=== PATIENT | female | born 1935 | race Caucasian/White ===

== ENCOUNTER → 2018-06-14 | Outpatient (CLI) | payer MEDICARE ==
[~2018-06-14] MED LIST: ACET325 PO; ALBU90OI61 INH; AMIT50 PO; BUME2 PO; CALCA500CH PO; CHOL10002 PO; DOXY100 PO; DRON400T; DRON400T PO; DRON5 PO; ESCI5 PO; FAMO20 PO; GLIM4 PO; HYDCOR10 PO; LEVO-T150 MCG PO; LEVSOD150 PO; LEVSOD75 PO; META800 PO; METO25; METO25 PO; METO5A PO; MONT10T PO; OMEP20ER PO; ONDA4 PO; ONDA8 PO; OXYACE5T PO; OXYC15ER PO; OXYC1TAB11; OXYC30ER PO; PANT20 PO; PRED1; PRED1 PO; PRED20 PO; PRED5 PO; PROM25 PO; PROM25S PR; Percocet 10-321 EACH PO; RXPROM25 PO; RXPROM25S PR; TUMS300 MG PO; Tambocor100 MG; Tambocor100 MG PO; WARF4; WARF5 PO; WARF7.5 PO; Zofran8 MG PO
== END | disposition home or self-care (01) ==
LOC: LAB EV 16:09 → LAB SHORT 16:09
DX: L03.114 Cellulitis of left upper limb (principal)
CPT/HCPCS: 87070; 87077; 87147; 87186

== ENCOUNTER 2018-07-25 11:24 | Inpatient (IN) | payer MEDICARE ==
[~2018-07-25] VITALS: Ht 172.7 cm; Wt 115.0 kg
[~2018-07-25 11:24] MED LIST changes: -METO25; -OXYC1TAB11; +OXYC1TAB11 PO; -PRED1; -TUMS300 MG PO; +TUMS500 MG PO; -Tambocor100 MG
[2018-07-25 12:17] LABS: BASOPHILS ABSOLUTE AUTO 0.05 K/mm3 (0.00-0.23); BASOPHILS PERCENT AUTO 0 % (0-2); EOSINOPHILS ABSOLUTE AUTO 0.02 K/mm3 (0.00-0.68); EOSINOPHILS PERCENT AUTO 0 % (0-6); Hematocrit 33.9 % (33.0-51.0); Hemoglobin 10.4 g/dL (11.5-16.0); IMMATURE GRAN ABSOLUTE AUTO 0.04 K/mm3 (0.00-0.10); IMMATURE GRAN PERCENT AUTO 0 % (0-1); LYMPHOCYTES ABSOLUTE AUTO 1.69 K/mm3 (0.84-5.20); LYMPHOCYTES PERCENT AUTO 15 % (21-46); MONOCYTES ABSOLUTE AUTO 1.11 K/mm3 (0.16-1.47); MONOCYTES PERCENT AUTO 10 % (4-13); Mean Corpuscular HGB 30.1 pg (26.0-34.0); Mean Corpuscular HGB Conc 30.7 g/dL (31.5-36.5); Mean Corpuscular Volume 98 fL (80-100); Mean Platelet Volume 11.2 fL (9.1-12.4); NEUTROPHILS ABSOLUTE AUTO 8.56 K/mm3 (1.96-9.15); NEUTROPHILS PERCENT AUTO 75 % (41-73); Platelet Count 207 K/mm3 (150-400); RDW Standard Deviation 50.6 fL (35.1-46.3); Red Blood Cell Count 3.46 M/mm3 (3.80-5.20); White Blood Cell Count 11.47 K/mm3 (4.00-11.30)
[2018-07-25 12:34] LABS: International Normalized Ratio 3.19; Prothrombin Time Results 30.4 Sec (9.7-11.5)
[2018-07-25 12:45] LABS: Alanine Aminotransfer (ALT/SGP 13 U/L (12-78); Albumin, Blood 2.7 g/dL (3.4-5.0); Albumin/Globulin Ratio 0.7 (0.8-1.8); Alk Phos 62 U/L (50-136); Anion Gap 4 mmol/L (6-16); Aspartate Aminotrans (AST/SGOT 16 U/L (12-37); Bilirubin, Total 0.3 mg/dL (0.1-1.0); Blood Urea Nitrogen 14 mg/dL (8-24); Bun/Creatinine Ratio 17.3 (12.0-20.0); CO2, Blood 37 mmol/L (21-32); Calcium, Blood 8.3 mg/dL (8.5-10.1); Chloride, Blood 97 mmol/L (98-108); Creatinine, Blood 0.81 mg/dL (0.40-1.00); Globulin, Blood 3.8 g/dL (2.2-4.0); Glomerular Filtration Rate >60 (60-); Glucose, Blood 93 mg/dL (70-99); Potassium, Blood 3.8 mmol/L (3.5-5.5); Sodium, Blood 138 mmol/L (136-145); Total Protein, Blood 6.5 g/dL (6.4-8.2); Troponin I 0.101 ng/mL (0.000-0.040)
[2018-07-25 12:54] LABS: Base Excess Venous 12.3 mmol/L; Bicarbonate Venous 34.7 mmol/L (24.0-30.0); PCO2 Venous 48.7 mmHg (38-42); PO2 Venous 174 mmHg (38-42); pH Blood Venous 7.48 (7.34-7.37)
[2018-07-25] MEDS ORDERED: AZIT250 PO (13:26)
[2018-07-25] MEDS ORDERED: OXYC30ER PO ×2 (13:28→13:29)
[2018-07-25] MEDS ORDERED: Tessalon200 MG PO (13:28)
[2018-07-25] MEDS ORDERED: WARF5 PO (13:31)
[2018-07-25] MEDS ORDERED: LEVSOD150 PO (13:34)
[2018-07-25] MEDS ORDERED: Tambocor100 MG PO (14:28)
--- NOTE | 2018-07-25 19:25 | NUR ---
ADMIT NOTE- PT ADMITTED THROUGH THE ED. ON TELE NSR AT 81 PER METAL HARDENER MELCHOR. PT ALERT AND ORIENTED BUT FORGETFUL, TENDS TO REPEAT THE SAME QUESTIONS. PT HAS FAMILY AT THE BEDSIDE, PT HAS AN AUDIBLE HEART MURMUR. CALLED DR AND LEFT A MESSAGE, PT IS CURRENTLY NPO, BG ORDERS FOR AC, PASSED ON IN REPORT THAT PT SHOULD HAVE Q6 BG UNTIL CLARIFIED. NO CARDIOLOGY CONSULT AT THIS TIME, TROPONIN BUMPED AT 0.141. PASSED ALL ON IN BEDSIDE REPORT TO NIGHT RICARDO PINZON.
[2018-07-25 20:13] LABS: Source, Urine Voided
[2018-07-25 20:22] LABS: Bilirubin, Urine Neg (Neg); Blood, Urine 1+ (Neg); Glucose Qualitative, Urine Neg (Neg); Ketones, Urine Neg (Neg); Leukocyte Esterase, Urine 3+ (Neg); Nitrite, Urine Neg (Neg); Protein, Urine 2+ (Neg); Urobilinogen, Urine NORM (Normal)
[2018-07-25 20:29] LABS: Appearance, Urine Hazy (Clear); Color, Urine Yellow (P-Yellow)
[2018-07-25 20:30] LABS: Bacteria Few /hpf; Red Blood Cells, Urine 0-2 /hpf (0-2); Squamous Epithelial Cells Few /hpf (Few); White Blood Cells, Urine 50-100 /hpf (0-5)
--- NOTE | 2018-07-25 22:25 | NUR ---
RIGHT LEG PAIN PT IS HAVING SIGNIFICANT PAIN RLE. PT REPORTS FALLING ONTO HER R SIDE AT HOME. RELIEVED BY OXYCONTIN XR, HOWEVER STILL LIMITED ROM TO RLE.
--- NOTE | 2018-07-26 05:35 | NUR ---
SHIFT SUMMARY: PT C/O HEAVILY OF RLE PAIN, SPECIFICALLY TO THE R KNEE. LEG IS SWOLLEN AND PAINFUL TO TOUCH, BUT NOT BRUISING NOTED. PT REPORTS FALLING ONTO R KNEE, SHOULDER, AND SIDE OF HEAD. NO X RAY OF R LEG, HOWEVER THIS RN FEELS THAT IT NEEDS TO BE ADDRESSED PT CANNOT EVEN MOVE THE R LEG. WILL PASS OF TO DAYSHIFT RN TO PASS OFF TO ATTENDING PHYSICIAN. PT IS ON 4.5L VIA NC AND CONT PULSE OXIMETRY, LUNGS ARE COARSE. PT IS A&O X 4, NO CONFUSION. PT NPO. TELE IN PLACE; NSR @ 69. CBG Q6H PER NPO PROTOCOL, BLOOD SUGARS THROUGH THE NIGHT ARE WNL -- BLOOD SUGARS 101 & 121. URINALYSIS SENT. LR RUNNING @ 100 ML/HR. WILL CONT TO MONITOR AND PROVIDE CARE UNTIL PRESUMED BY ONCOMING RN.
[2018-07-26 05:57] LABS: Alanine Aminotransfer (ALT/SGP 14 U/L (12-78); Albumin, Blood 2.5 g/dL (3.4-5.0); Albumin/Globulin Ratio 0.6 (0.8-1.8); Alk Phos 61 U/L (50-136); Anion Gap 5 mmol/L (6-16); Aspartate Aminotrans (AST/SGOT 14 U/L (12-37); Bilirubin, Total 0.4 mg/dL (0.1-1.0); Blood Urea Nitrogen 10 mg/dL (8-24); Bun/Creatinine Ratio 16.2 (12.0-20.0); CO2, Blood 36 mmol/L (21-32); Calcium, Blood 8.3 mg/dL (8.5-10.1); Chloride, Blood 97 mmol/L (98-108); Creatinine, Blood 0.62 mg/dL (0.40-1.00); Globulin, Blood 3.9 g/dL (2.2-4.0); Glomerular Filtration Rate >60 (60-); Glucose, Blood 114 mg/dL (70-99); Potassium, Blood 4.1 mmol/L (3.5-5.5); Sodium, Blood 138 mmol/L (136-145); Total Protein, Blood 6.4 g/dL (6.4-8.2); Troponin I 0.051 ng/mL (0.000-0.040)
[2018-07-26 10:29] LABS: International Normalized Ratio 3.6
--- NOTE | 2018-07-26 12:42 | NUR ---
ECHOCARDIOGRAM COMPLETE
--- NOTE | 2018-07-26 17:11 | NUR ---
SPOKE TO DR TAPIA- PT SBP HAS BEEN IN THE 90'S ALL DAY. PT HAS NO SYMPTOMS OF LOW BLOOD PRESSURE, SHE IS A LITTLE MORE SLEEPY TODAY. DR IS AWARE METOPROLOL DOSE WAS HELD THIS MORNING FOR LOW SBP. PT RECIEVED A 500ML FLUID BOLUS TODAY WITH NO RESPONSE IN THE BP, DR AWARE. PT HAD AN ECHO DONE TODAY. PLAN IS TO CT AT THIS TIME.
--- NOTE | 2018-07-26 18:17 | NUR ---
SHIFT SUMMARY- PT HAS HAD CHANGES TO HER PAIN MEDCIATION REGIMEN. SPOKE TO DR ABOUT PT HOME PAIN MEDS. DR DOES NOT WANT TO RESUME THAT REGIMEN IT FLUCTUATES TOO MUCH. LONG ACTING PAIN MEDICATION INCREASED. PT IS CURRENTLY SLEEPING, FAMILY JUST ARRIVED AT THE BEDSIDE. WILL PASS ON IN BEDSIDE REPORT TO NIGHT RN.
--- NOTE | 2018-07-27 04:32 | NUR ---
82 Y/O FEMALE RESTED COMFORTABLY ALL EVENING. PT VOIDED VIA BEDPAN X 2 ASSIST. PTS BP 101/55, PT TELEMETRY REFLECTS NSR WITH HEART RATE 72. PT HAS +2 PITTING EDEMA NOTED LOWER EXTREMITIES. PT WEARING O2 AT 3L/M PER NASAL CANNULA, LUNG SOUNDS ARE COARSE THROUGHOUT. PTS BED IN LOW POSITION, CALL LIGHT AT SIDE, BED ALARM ACTIVATED.
[2018-07-27 05:01] LABS: BASOPHILS ABSOLUTE AUTO 0.03 K/mm3 (0.00-0.23); BASOPHILS PERCENT AUTO 0 % (0-2); EOSINOPHILS PERCENT AUTO 0 % (0-6); Hematocrit 29.5 % (33.0-51.0); Hemoglobin 9.1 g/dL (11.5-16.0); IMMATURE GRAN ABSOLUTE AUTO 0.08 K/mm3 (0.00-0.10); IMMATURE GRAN PERCENT AUTO 1 % (0-1); LYMPHOCYTES ABSOLUTE AUTO 0.56 K/mm3 (0.84-5.20); LYMPHOCYTES PERCENT AUTO 5 % (21-46); MONOCYTES ABSOLUTE AUTO 0.62 K/mm3 (0.16-1.47); MONOCYTES PERCENT AUTO 6 % (4-13); Mean Corpuscular HGB 30.1 pg (26.0-34.0); Mean Corpuscular HGB Conc 30.8 g/dL (31.5-36.5); Mean Corpuscular Volume 98 fL (80-100); Mean Platelet Volume 11.7 fL (9.1-12.4); NEUTROPHILS ABSOLUTE AUTO 9.49 K/mm3 (1.96-9.15); NEUTROPHILS PERCENT AUTO 88 % (41-73); Platelet Count 193 K/mm3 (150-400); RDW Standard Deviation 50.7 fL (35.1-46.3); Red Blood Cell Count 3.02 M/mm3 (3.80-5.20); White Blood Cell Count 10.78 K/mm3 (4.00-11.30)
[2018-07-27 05:19] LABS: International Normalized Ratio 3.38; Prothrombin Time Results 32.1 Sec (9.7-11.5)
[2018-07-27 05:25] LABS: Anion Gap 3 mmol/L (6-16); Blood Urea Nitrogen 10 mg/dL (8-24); Bun/Creatinine Ratio 14.5 (12.0-20.0); CO2, Blood 32 mmol/L (21-32); Calcium, Blood 8.1 mg/dL (8.5-10.1); Chloride, Blood 99 mmol/L (98-108); Creatinine, Blood 0.69 mg/dL (0.40-1.00); Glomerular Filtration Rate >60 (60-); Glucose, Blood 131 mg/dL (70-99); Potassium, Blood 4.6 mmol/L (3.5-5.5); Sodium, Blood 134 mmol/L (136-145)
--- NOTE | 2018-07-27 07:20 | NUR ---
ASSUMED CARE OF PT- BEDSIDE REPORT COMPLETE WITH NIGHT RN OWEN. PT DIAPHORETIC AND FLUSHED. REMOVED EXTRA BLANKETS AND LEFT PT COVERED WITH JUST A SHEET. PT DENIES N/T AT THE TIME OF ASSESSMENT, HACKING COUGH NOTED, PT STATED IT GOT WORSE LAST NIGHT, LUNG SOUNDS CLEAR, IVF RUNNING AT 75ML/HR. PT STATES HER PAIN IS MUCH BETTER THIS MORNING. PER REPORT FROM NIGHT RN PT SBP CAME UP TO 110 AND SO 2100 DOSE OF METOPROLOL WAS GIVEN. PT ALERT AND ORIENTED BUT STILL FORGETFUL. MORNING VITALS BEING DONE NOW. SPOKE TO DR TAPIA WHEN PT WAS ADMITTED, SHE STATED SHE WANTS TO BE RESUSSITATED SHE STATED "I DON'T WANT TO BE A VEGITABLE." PT IS STILL LISTED A DNR CURRENTLY. WILL TALK TO DR TAPIA TO CONFIRM.
--- NOTE | 2018-07-27 09:30 | NUR ---
Met with Shaina this morning. She reports that her pain "Is up there," and that she coughed all night and didn't sleep. She also reports that she feels like she has more chest congestion today. Spoke with nursing about pt's complaints. She states that the night nurse reported that Shaina "slept soundly" last night and that she has some confusion. Nursing plans to medicate pt with her oxycontin 40 mg dose with the am meds. No coughing noted during my visit. Nursing reports pt's lung sounds were clear this morning. No family currently in pt's room. Will continue to monitor pt's response to recent pain medication changes.
--- NOTE | 2018-07-27 17:12 | NUR ---
SHIFT SUMMARY- PT IS MORE ALERT THIS EVENING. SHE HAD ONE INCIDENT OF BREAKTHROUGH PAIN SEEMS WELL MANAGED WITH 10MG OXY. PT ALERT AND ORIENTED, STAFF GOING IN NOW TO PERFORM A BED BATH. PAIN STILL PRESENT BUT PER PT WAS TOLLERABLE AT THIS TIME. PT VERY PLEASENT AND COOPERATIVE WITH ALL STAFF AND CARE, DOES NOT HAVE MUCH APETITE. WILL CTM.
[2018-07-28 04:46] LABS: BASOPHILS ABSOLUTE AUTO 0.09 K/mm3 (0.00-0.23); BASOPHILS PERCENT AUTO 1 % (0-2); EOSINOPHILS ABSOLUTE AUTO 0.37 K/mm3 (0.00-0.68); EOSINOPHILS PERCENT AUTO 4 % (0-6); Hematocrit 29.9 % (33.0-51.0); Hemoglobin 9.2 g/dL (11.5-16.0); IMMATURE GRAN ABSOLUTE AUTO 0.08 K/mm3 (0.00-0.10); IMMATURE GRAN PERCENT AUTO 1 % (0-1); LYMPHOCYTES ABSOLUTE AUTO 1.31 K/mm3 (0.84-5.20); LYMPHOCYTES PERCENT AUTO 14 % (21-46); MONOCYTES ABSOLUTE AUTO 0.93 K/mm3 (0.16-1.47); MONOCYTES PERCENT AUTO 10 % (4-13); Mean Corpuscular HGB 29.3 pg (26.0-34.0); Mean Corpuscular HGB Conc 30.8 g/dL (31.5-36.5); Mean Platelet Volume 11.4 fL (9.1-12.4); NEUTROPHILS ABSOLUTE AUTO 6.58 K/mm3 (1.96-9.15); NEUTROPHILS PERCENT AUTO 70 % (41-73); Platelet Count 233 K/mm3 (150-400); RDW Coefficient Variation 14.5 % (11.7-14.2); RDW Standard Deviation 50.3 fL (35.1-46.3); Red Blood Cell Count 3.14 M/mm3 (3.80-5.20); White Blood Cell Count 9.36 K/mm3 (4.00-11.30)
--- NOTE | 2018-07-28 04:46 | NUR ---
SUMMARY: 82 Y/O MALE RESTED COMFORTABLY IN HIGH FOWLERS ALL EVENING WHILE WEARING O2 AT 4L/M PER NASAL CANNULA. PT UTILIZED BEDPAIN FOR ALL VOIDING X 2 ASSIST. PT MAINTAINED IN CONTACT PRECAUTIONS, BED LOW POSITION, CALL LIGHT AT SIDE. PT MEDICATED FOR CHRONIC GENERALIZED PAIN WITH OXYCODONE 5MG. PT VOICED, "WHEN I LEAVE HERE, MY PCP WILL BE ORDERING ALL MY REGULAR NARCOTICS MEDICATIONS BEFORE"! PT VERY ADAMANT AT TIMES THAT SHE NEEDS LOTS OF NARCOTICS TO FUNCTION WITH ADLS/IADLS AT HOME. PTS BED IN LOW POSITION, BED ALARM APPLIED, CALL LIGHT AT SIDE.
[2018-07-28 04:47] LABS: Mean Corpuscular Volume 95 fL (80-100)
[2018-07-28 04:57] LABS: Anion Gap 4 mmol/L (6-16); Blood Urea Nitrogen 12 mg/dL (8-24); CO2, Blood 33 mmol/L (21-32); Calcium, Blood 8.2 mg/dL (8.5-10.1); Chloride, Blood 99 mmol/L (98-108); Creatinine, Blood 0.75 mg/dL (0.40-1.00); Glomerular Filtration Rate >60 (60-); Glucose, Blood 82 mg/dL (70-99); Potassium, Blood 4.2 mmol/L (3.5-5.5); Sodium, Blood 136 mmol/L (136-145)
[2018-07-28 05:00] LABS: International Normalized Ratio 2.17; Prothrombin Time Results 21.4 Sec (9.7-11.5)
--- NOTE | 2018-07-28 07:39 | NUR ---
MORNING BLOOD SUGAR MORNING BLOOD SUGAR OF 68. PT GIVEN OJ.
--- NOTE | 2018-07-28 09:49 | NUR ---
PT PAIN DR. GUZMAN NOTIFIED ABOUT PT PAIN LEVEL. INFORMED OF WHAT PT WAS GIVEN THIS AM & WHAT SHE RECIEVES AT HOME. STATED HE WILL LOOK UP PT AND COME SEE THE PT & HER DAUGHTER TO DISCUSS PAIN MANAGMENT. FAMILY NOTIFIED. WILL CONTINUE TO MONITOR PT.
--- NOTE | 2018-07-28 16:48 | NUR ---
SHIFT SUMMARY PT PAIN MANAGED MUCH BETTER THIS AFTERNOON. PT STATES HER PAIN IS AT A 5. PT WORKED WITH PHYISCAL THERAPY THIS SHIFT. PT TOLERATED BEING UP IN CHAIR FOR 1 HOUR. NO OTHER CHANGES IN ASSESSMENT AT THIS TIME. VSS. NO OTHE CHANGES IN ASSESSMENT AT THIS TIME. PT ASKS FOR PAIN MEDICATION FREQUENTLY. MEDICATED PER EMAR. WILL CONTINUE TO MONITOR UNTIL TURNOVER IS COMPLETE.
[2018-07-28] MEDS ORDERED: MONT10T PO (18:11)
--- NOTE | 2018-07-29 04:56 | NUR ---
SUMMARY: 82 Y/O FEMALE RESTED COMFORTABLY ALL EVENING. PT VOIDED VIA BEDPAN X 2 ASSIST. PT CONTINUES TO HAVE CHRONIC PAIN VOICED THROUGHOUT WITH MINIMAL RELIEF VOICED. PT STATED, "I NEED TO DOUBLE THE AMOUNT OF NARCOTICS AM TAKING TO GET RELIEF WHEN IM DISCHARGED HOME". PT EDUCATED TO ONLY TAKE MEDS ORDERED BY PCP AND NOT SELF MEDICATE WITH REINFORCEMENT REQUIRED. PT DENIES NAUSEA. PT MAINTAINED IN DROPLET ISOLATION, BED LOW POSITION, BED ALARM APPLIED, CALL LIGHT AT SIDE.
[2018-07-29 05:10] LABS: International Normalized Ratio 1.52; Prothrombin Time Results 15.5 Sec (9.7-11.5)
[2018-07-29] MEDS ORDERED: BUME2 PO (11:50)
--- NOTE | 2018-07-29 17:48 | NUR ---
SHIFT SUMMARY PT NAUSEATED THIS AFTERNOON. DR. GUZMAN AWARE. DR. GUZMAN DISCUSSED WITH PT & FAMILY ABOUT CHANGES IN HER PAIN MED SCHEDULE. DR. GUZMAN THINKS HER NAUSEA IS RELATED TO NARCOTIC USE. NO OTHER CHANGES IN ASSESSMENT AT THIS TIME. VSS. WILL CONTINUE TO MONITOR UNTIL TURNOVER IS COMPLETE. PT ENCOURAGED TO BE UP IN CHAIR FOR MEALS. PT AGREED FOR LUNCH & DINNER.
--- NOTE | 2018-07-30 04:21 | NUR ---
SUMMARY: 82 Y/O FEMALE RESTED COMFORTABLY ALL EVENING. PT WAS ABLE TO UTILIZE BSC X 3 THIS SHIFT, WITH FRONT WHEEL WALKER AND ONE ASSIST. NO BEDPAN USED. PT COMFORTABLE WITH CURRENT PAIN NARCOTIC MEDS DOSED. PT DENIES NAUSEA. PTS BED ALARM APPLIED, CALL LIGHT AT SIDE, BED LOW POSITION. PT CALM AND COOPERATIVE ALL SHIFT.
[2018-07-30 06:54] LABS: International Normalized Ratio 1.27; Prothrombin Time Results 13.2 Sec (9.7-11.5)
--- NOTE | 2018-07-30 17:35 | NUR ---
SHIFT SUMMARY PT TOLERATED A SHOWER THIS SHIFT. PT UP IN CHAIR FOR LUNCH. TRANSFERING WITH LITTLE ASSISTANCE. PT HAS NEEDED PRN PAIN MEDS TWICE THIS SHIFT. NO OTHER CHANGES IN ASSESSMENT AT THIS TIME. PLANS TO DECREASE MORNING SCHEDULED PAIN MEDICATION DUE TO LETHARGY. VSS. WILL CONTINUE TO MONITOR UNTIL TURNOVER IS COMPLETE.
--- NOTE | 2018-07-30 17:47 | NUR ---
Spiritual Care initial visit:Ioana tells me she is positive she is getting better and will soon be able to return to her normal life. She has no concerns. Non-jewish, but responded well to affirmation and encouragement. I will remain available.
--- NOTE | 2018-07-30 23:42 | NUR ---
PT RIGHT GROIN ABD FOLD RED AND EXCORIATED, NYSTATIN POWDER APPLIED ORDERED TO SITE.
--- NOTE | 2018-07-31 05:46 | NUR ---
SUMMARY: 82 Y/O MALE RESTED COMFORTABLY ALL EVENING WITH NO PAIN VOICED. PT ABLE TO TRANSFER FROM BED TO C X1 STANDBY ASSIST VIA WALKER, BILATERAL FOOT PUSH AND PULLS STRONG AND EQUAL. PT HAPPY AND COOPERATIVE AND EAGER TO RETURN HOME TO DAUGHTERS HOME. PT ONLY TOOK MS CONTIN 30MG AT 2100 SCHEDULED (NO PRN PAIN MEDS GIVEN).
[2018-07-31 05:58] LABS: International Normalized Ratio 1.54; Prothrombin Time Results 15.7 Sec (9.7-11.5)
--- NOTE | 2018-07-31 17:55 | NUR ---
SHIFT SUMMARY 82 YR OLD FEMALE. ADMITTED FOR ACS AND HYPOXIA. DNR CODE STATUS. PLAN IS FOR PT TO DC HOME TOMORROW W/HOME HEALTH. PT IS A&O X3, LIVES WITH DAUGHTER, O2 @ 3 LPM. PT IS WEAK, 1 STANDBY W/FWW. PILLS ARE TAKEN WHOLE. SHE IS ON A 2 GRAM LOW SODIUM DIET. TODAY WE'VE BEEN WORKING TO GET NAUSEA UNDER CONTROL. GOING WITH PO REGLAN ACHS, AND PRN-IV. PT HAS A HX OF OPIATE ABUSE FOR CHRONIC BACK PAIN, HX OF FALLS. DROPLET CONTACT PRECAUTIONS FOR MRSA.
--- NOTE | 2018-08-01 04:07 | NUR ---
SUMMARY: 82 Y/O FEMALE RESTED COMFORTABLY ALL SHIFT AND FELT GOOD WITH HER CURRENT PAIN MEDICATIONS REGIMEN. PT ABLE TO TRANSFER TO [facility] [place] X 1 STANDBY ASSIST AND VOID WITHOUT ISSUE. PT DENIES NAUSEA. PT HOPING FOR POSSIBLE DISCHARGE HOME TODAY TO [facility]. PTS BED LOW POSITION, CALL LIGHT AT SIDE.
[2018-08-01 04:56] LABS: International Normalized Ratio 1.48; Prothrombin Time Results 15.1 Sec (9.7-11.5)
[2018-08-01] MEDS ORDERED: METO5A PO (12:03)
[2018-08-01] MEDS ORDERED: OXYC15ER PO (12:08)
--- NOTE | 2018-08-01 15:05 | NUR ---
DISCHARGE NOTE PT'S IV DC'D WNL. HARDCOPY AND VERBAL INSTRUCTIONS PROVIDED RE: DIAGNOSES, MEDICATIONS, AND FOLLOW UP APPOINTMENTS. ARRANGEMENTS MADE WITH [facility] FOR TRANSPORT HOME VIA WHEELCHAIR. HARDCOPY PRESCRIPTIONS PROVIDED TO PT AND FAMILY. PRESCRIPTIONS FOR WHEELCHAIR AND BEDSIDE COMMODE FAXED TO [facility]. PT POSSESSIONS GATHERED AND BAGGED FOR PT. PT DRESSED IN OUR GOWN HER PERSONAL CLOTHING WAS SOILED. [facility] TRANSPORT ESCORTED PT OUT VIA WHEELCHAIR. PT AND FAMILY HAD NO FURTHER QUESTIONS.
== END 2018-08-01 15:07 | disposition home health service (06) | DRG 917 ==
LOC: ER 11:24 → MEDS 13:44
PROVIDERS: Emergency Medicine; ADMIT Internal Medicine
DX: T40.604A Poisoning by unspecified narcotics, undetermined, initial encounter (principal); G92 Toxic encephalopathy; J96.21 Acute and chronic respiratory failure with hypoxia; S06.9X9A Unspecified intracranial injury with loss of consciousness of unspecified duration, initial encounter; F11.20 Opioid dependence, uncomplicated; N39.0 Urinary tract infection, site not specified; E87.1 Hypo-osmolality and hyponatremia; E66.2 Morbid (severe) obesity with alveolar hypoventilation; Z79.52 Long term (current) use of systemic steroids; I48.2 Chronic atrial fibrillation; Z68.39 Body mass index [BMI] 39.0-39.9, adult; I49.5 Sick sinus syndrome; I48.0 Paroxysmal atrial fibrillation; Z99.81 Dependence on supplemental oxygen; Z86.14 Personal history of Methicillin resistant Staphylococcus aureus infection; Z66 Do not resuscitate; E11.9 Type 2 diabetes mellitus without complications; D64.9 Anemia, unspecified; Z74.01 Bed confinement status; Y92.9 Unspecified place or not applicable; R26.89 Other abnormalities of gait and mobility
CPT/HCPCS: 36415; 70450; 71046; 73560-RT; 80048; 80053; 81001; 82803; 82947; 84145; 84484; 85025; 85610; 87040; 93005; 93010; 93306; 94640; 94762; 96361; 96374; 96375; 96376; 97110; 97162; 97530; 99285-25; J1170; J1720; J2405; J7030; J7060; J7120; J7512

== ENCOUNTER 2020-05-21 18:28 | Emergency (ER) | payer MEDICARE ==
[~2020-05-21] VITALS: Ht 172.7 cm; Wt 113.4 kg
[~2020-05-21 18:28] MED LIST changes: +AZIT250 PO; +Tessalon200 MG PO
[2020-05-21] MEDS ORDERED: CYAN1000I IM (19:28)
[2020-05-21] MEDS ORDERED: PROAIR DIGIHAL90 MCG (19:29)
[2020-05-21 19:58] LABS: BASOPHILS ABSOLUTE AUTO 0.07 K/mm3 (0.00-0.23); BASOPHILS PERCENT AUTO 1 % (0-2); EOSINOPHILS ABSOLUTE AUTO 0.17 K/mm3 (0.00-0.68); EOSINOPHILS PERCENT AUTO 2 % (0-6); Hemoglobin 10.9 g/dL (11.5-16.0); IMMATURE GRAN ABSOLUTE AUTO 0.02 K/mm3 (0.00-0.10); IMMATURE GRAN PERCENT AUTO 0 % (0-1); LYMPHOCYTES ABSOLUTE AUTO 1.57 K/mm3 (0.84-5.20); LYMPHOCYTES PERCENT AUTO 20 % (21-46); MONOCYTES PERCENT AUTO 11 % (4-13); Mean Corpuscular HGB 29.5 pg (26.0-34.0); Mean Corpuscular HGB Conc 30.3 g/dL (31.5-36.5); Mean Corpuscular Volume 98 fL (80-100); Mean Platelet Volume 11.2 fL (9.1-12.4); NEUTROPHILS PERCENT AUTO 66 % (41-73); Platelet Count 217 K/mm3 (150-400); RDW Coefficient Variation 14.7 % (11.7-14.2); RDW Standard Deviation 53.4 fL (35.1-46.3); Red Blood Cell Count 3.69 M/mm3 (3.80-5.20); White Blood Cell Count 7.93 K/mm3 (4.00-11.30)
[2020-05-21 20:07] LABS: Alanine Aminotransfer (ALT/SGP 13 U/L (12-78); Albumin, Blood 2.7 g/dL (3.4-5.0); Albumin/Globulin Ratio 0.7 (0.8-1.8); Alk Phos 63 U/L (50-136); Anion Gap 0 mmol/L (6-16); Aspartate Aminotrans (AST/SGOT 13 U/L (12-37); Bilirubin, Total 0.3 mg/dL (0.1-1.0); Blood Urea Nitrogen 15 mg/dL (8-24); Bun/Creatinine Ratio 17.1 (12.0-20.0); CO2, Blood 43 mmol/L (21-32); Calcium, Blood 8.2 mg/dL (8.5-10.1); Chloride, Blood 97 mmol/L (98-108); Creatinine, Blood 0.88 mg/dL (0.40-1.00); Glomerular Filtration Rate >60 (60-); Glucose, Blood 110 mg/dL (70-99); Potassium, Blood 3.4 mmol/L (3.5-5.5); Sodium, Blood 140 mmol/L (136-145); Total Protein, Blood 6.7 g/dL (6.4-8.2); Troponin I 0.021 ng/mL (0.000-0.040)
[2020-05-21 20:13] LABS: Source, Urine Catheter
[2020-05-21 20:13] LABS: International Normalized Ratio 1.54; Prothrombin Time Results 16.1 Sec (9.7-11.5)
[2020-05-21 20:18] LABS: Bilirubin, Urine Neg (Neg); Blood, Urine 1+ (Neg); Glucose Qualitative, Urine Neg (Neg); Ketones, Urine Neg (Neg); Leukocyte Esterase, Urine Neg (Neg); Nitrite, Urine Neg (Neg); Protein, Urine Neg (Neg); Specific Gravity, Urine 1.015 (1.003-1.022); Urobilinogen, Urine NORM (Normal); pH, Urine 6.5 (5.0-8.0)
[2020-05-21 20:23] LABS: Appearance, Urine Clear (Clear); Color, Urine Yellow (P-Yellow)
[2020-05-21 20:24] LABS: Bacteria Few /hpf; Red Blood Cells, Urine 0-2 /hpf (0-2); Squamous Epithelial Cells Rare /hpf (Few); White Blood Cells, Urine Rare /hpf (0-5)
[2020-05-21 20:25] LABS: Amorphous Light (0-Heavy); Hyaline Casts 50-100 /lpf (0-2); Mucus Light (0-Heavy)
[2020-05-21 20:55] LABS: Influenza A, PCR NEGATIVE (NEGATIVE); Influenza B, PCR NEGATIVE (NEGATIVE); Resp Syncytial Virus, PCR NEGATIVE (NEGATIVE); SARS-Cov-2 (COVID-19) PCR, MMC NEGATIVE (NEGATIVE)
== END 2020-05-21 23:41 | disposition home or self-care (01) ==
LOC: ER 18:28
PROVIDERS: Emergency Medicine
DX: E87.6 Hypokalemia (principal); I48.91 Unspecified atrial fibrillation; E11.9 Type 2 diabetes mellitus without complications; E03.9 Hypothyroidism, unspecified; I10 Essential (primary) hypertension; J45.909 Unspecified asthma, uncomplicated; Z79.899 Other long term (current) drug therapy; Z20.822 Contact with and (suspected) exposure to COVID-19; Z79.52 Long term (current) use of systemic steroids; Z79.01 Long term (current) use of anticoagulants; Z88.0 Allergy status to penicillin; Z88.5 Allergy status to narcotic agent; Z91.040 Latex allergy status; Z91.041 Radiographic dye allergy status; Z88.8 Allergy status to other drugs, medicaments and biological substances; Z87.891 Personal history of nicotine dependence
CPT/HCPCS: 0241U; 71045; 80053; 81001; 83880; 84484; 85025; 85610; 93005; 93010; 99285-25; A9270; P9612

== ENCOUNTER 2020-05-23 19:18 | Emergency (ER) | payer MEDICARE ==
[~2020-05-23] VITALS: Ht 172.7 cm; Wt 113.4 kg
[~2020-05-23 19:18] MED LIST changes: +CYAN1000I IM; +PROAIR DIGIHAL90 MCG
[2020-05-23 20:38] LABS: BASOPHILS ABSOLUTE AUTO 0.04 K/mm3 (0.00-0.23); BASOPHILS PERCENT AUTO 1 % (0-2); EOSINOPHILS ABSOLUTE AUTO 0.27 K/mm3 (0.00-0.68); EOSINOPHILS PERCENT AUTO 3 % (0-6); Hematocrit 36.2 % (33.0-51.0); IMMATURE GRAN ABSOLUTE AUTO 0.03 K/mm3 (0.00-0.10); IMMATURE GRAN PERCENT AUTO 0 % (0-1); LYMPHOCYTES ABSOLUTE AUTO 1.34 K/mm3 (0.84-5.20); LYMPHOCYTES PERCENT AUTO 17 % (21-46); MONOCYTES ABSOLUTE AUTO 0.99 K/mm3 (0.16-1.47); MONOCYTES PERCENT AUTO 13 % (4-13); Mean Corpuscular HGB 29.4 pg (26.0-34.0); Mean Corpuscular HGB Conc 30.4 g/dL (31.5-36.5); Mean Corpuscular Volume 97 fL (80-100); Mean Platelet Volume 10.8 fL (9.1-12.4); NEUTROPHILS ABSOLUTE AUTO 5.23 K/mm3 (1.96-9.15); NEUTROPHILS PERCENT AUTO 66 % (41-73); Platelet Count 215 K/mm3 (150-400); RDW Coefficient Variation 14.3 % (11.7-14.2); RDW Standard Deviation 50.4 fL (35.1-46.3); Red Blood Cell Count 3.74 M/mm3 (3.80-5.20)
[2020-05-23 21:00] LABS: Acetaminophen, Random 5.1 ug/mL (10.0-30.0); Troponin I <0.015 ng/mL (0.000-0.040)
[2020-05-23 21:01] LABS: Alanine Aminotransfer (ALT/SGP 10 U/L (12-78); Albumin, Blood 2.8 g/dL (3.4-5.0); Albumin/Globulin Ratio 0.7 (0.8-1.8); Alk Phos 60 U/L (50-136); Anion Gap 2 mmol/L (6-16); Aspartate Aminotrans (AST/SGOT 12 U/L (12-37); Bilirubin, Total 0.3 mg/dL (0.1-1.0); Blood Urea Nitrogen 12 mg/dL (8-24); Bun/Creatinine Ratio 16.5 (12.0-20.0); CO2, Blood 40 mmol/L (21-32); Calcium, Blood 8.7 mg/dL (8.5-10.1); Chloride, Blood 97 mmol/L (98-108); Creatinine, Blood 0.73 mg/dL (0.40-1.00); Globulin, Blood 3.8 g/dL (2.2-4.0); Glomerular Filtration Rate >60 (60-); Glucose, Blood 92 mg/dL (70-99); Potassium, Blood 3.2 mmol/L (3.5-5.5); Sodium, Blood 139 mmol/L (136-145); Total Protein, Blood 6.6 g/dL (6.4-8.2)
[2020-05-23] MEDS ORDERED: NARCAN4 M1 BC (21:29)
== END 2020-05-23 21:44 | disposition home or self-care (01) ==
LOC: ER 19:18
PROVIDERS: Physician Assistant
DX: T40.2X1A Poisoning by other opioids, accidental (unintentional), initial encounter (principal); I48.20 Chronic atrial fibrillation, unspecified; J45.909 Unspecified asthma, uncomplicated; M54.9 Dorsalgia, unspecified; G89.29 Other chronic pain; E11.9 Type 2 diabetes mellitus without complications; I10 Essential (primary) hypertension; I49.5 Sick sinus syndrome; E03.9 Hypothyroidism, unspecified; Z79.899 Other long term (current) drug therapy; Z79.01 Long term (current) use of anticoagulants; Z79.891 Long term (current) use of opiate analgesic; Z95.0 Presence of cardiac pacemaker; Z87.891 Personal history of nicotine dependence
CPT/HCPCS: 71046; 80053; 83880; 84443; 84484; 85025; 93005; 93010; 99285-25; A9270; G0480

== ENCOUNTER 2021-02-24 11:07 | Emergency (ER) | payer MEDICARE ==
[~2021-02-24] VITALS: Ht 172.7 cm; Wt 113.4 kg
[~2021-02-24 11:07] MED LIST changes: +NARCAN4 M1 BC
[2021-02-24 11:58] LABS: BASOPHILS ABSOLUTE AUTO 0.07 K/mm3 (0.00-0.23); BASOPHILS PERCENT AUTO 1 % (0-2); EOSINOPHILS ABSOLUTE AUTO 0.43 K/mm3 (0.00-0.68); EOSINOPHILS PERCENT AUTO 7 % (0-6); Hematocrit 39.2 % (33.0-51.0); Hemoglobin 11.9 g/dL (11.5-16.0); IMMATURE GRAN ABSOLUTE AUTO 0.05 K/mm3 (0.00-0.10); IMMATURE GRAN PERCENT AUTO 1 % (0-1); LYMPHOCYTES ABSOLUTE AUTO 1.18 K/mm3 (0.84-5.20); LYMPHOCYTES PERCENT AUTO 19 % (21-46); MONOCYTES ABSOLUTE AUTO 0.62 K/mm3 (0.16-1.47); MONOCYTES PERCENT AUTO 10 % (4-13); Mean Corpuscular HGB 29.9 pg (26.0-34.0); Mean Corpuscular HGB Conc 30.4 g/dL (31.5-36.5); Mean Corpuscular Volume 99 fL (80-100); Mean Platelet Volume 11.2 fL (9.1-12.4); NEUTROPHILS ABSOLUTE AUTO 3.96 K/mm3 (1.96-9.15); NEUTROPHILS PERCENT AUTO 63 % (41-73); Platelet Count 202 K/mm3 (150-400); RDW Coefficient Variation 13.5 % (11.7-14.2); RDW Standard Deviation 49.8 fL (35.1-46.3); Red Blood Cell Count 3.98 M/mm3 (3.80-5.20); White Blood Cell Count 6.31 K/mm3 (4.00-11.30)
[2021-02-24 12:14] LABS: Albumin, Blood 2.8 g/dL (3.4-5.0); Albumin/Globulin Ratio 0.7 (0.8-1.8); Bilirubin, Total 0.3 mg/dL (0.1-1.0); Bun/Creatinine Ratio 9.8 (12.0-20.0); Calcium, Blood 8.4 mg/dL (8.5-10.1); Creatinine, Blood 1.02 mg/dL (0.40-1.00); Globulin, Blood 4.1 g/dL (2.2-4.0); Potassium, Blood 3.3 mmol/L (3.5-5.5); Total Protein, Blood 6.9 g/dL (6.4-8.2)
[2021-02-24 12:20] LABS: Prothrombin Time Results 48.3 Sec (9.7-11.5)
[2021-02-24 12:26] LABS: International Normalized Ratio 5.12
[2021-02-24] MEDS ORDERED: ALBU2.5V5 NEB (14:07)
[2021-02-24] MEDS ORDERED: CEPH500 PO (14:07)
[2021-02-24] MEDS ORDERED: ALBU90OI INH (14:07)
[2021-02-25] MEDS ORDERED: LEVO750 PO (08:22)
== END 2021-02-24 14:30 | disposition home or self-care (01) ==
LOC: ER 11:07
PROVIDERS: Physician Assistant
DX: S30.0XXA Contusion of lower back and pelvis, initial encounter (principal); J44.0 Chronic obstructive pulmonary disease with (acute) lower respiratory infection; J20.9 Acute bronchitis, unspecified; I10 Essential (primary) hypertension; I48.91 Unspecified atrial fibrillation; E11.9 Type 2 diabetes mellitus without complications; E03.9 Hypothyroidism, unspecified; Z87.891 Personal history of nicotine dependence; W19.XXXA Unspecified fall, initial encounter
CPT/HCPCS: 36415; 71045; 72100; 80053; 83880; 84484; 85025; 85610; 93005; 93010; 99285-25; A9270

== ENCOUNTER 2021-02-25 01:36 | Emergency (ER) | payer MEDICARE ==
[~2021-02-25] VITALS: Ht 172.7 cm; Wt 113.4 kg
[~2021-02-25 01:36] MED LIST changes: +ALBU2.5V5 NEB; +ALBU90OI INH; +CEPH500 PO
[2021-02-25 05:08] LABS: Source, Urine Catheter
[2021-02-25 05:19] LABS: Bilirubin, Urine Neg (Neg); Blood, Urine 3+ (Neg); Glucose Qualitative, Urine Neg (Neg); Ketones, Urine 1+ (Neg); Leukocyte Esterase, Urine Neg (Neg); Nitrite, Urine Neg (Neg); Protein, Urine 2+ (Neg); Urobilinogen, Urine NORM (Normal)
[2021-02-25 05:58] LABS: Appearance, Urine Hazy (Clear); Color, Urine Yellow (P-Yellow)
[2021-02-25 05:59] LABS: White Blood Cells, Urine Not Seen /hpf (0-5)
[2021-02-25 06:00] LABS: Amorphous Mod (0-Heavy); Bacteria Few /hpf; Squamous Epithelial Cells Few /hpf (Few)
[2021-02-25 06:05] LABS: BASOPHILS ABSOLUTE AUTO 0.04 K/mm3 (0.00-0.23); BASOPHILS PERCENT AUTO 1 % (0-2); EOSINOPHILS ABSOLUTE AUTO 0.12 K/mm3 (0.00-0.68); EOSINOPHILS PERCENT AUTO 1 % (0-6); Hematocrit 34.4 % (33.0-51.0); Hemoglobin 10.4 g/dL (11.5-16.0); IMMATURE GRAN ABSOLUTE AUTO 0.04 K/mm3 (0.00-0.10); IMMATURE GRAN PERCENT AUTO 1 % (0-1); LYMPHOCYTES ABSOLUTE AUTO 1.14 K/mm3 (0.84-5.20); LYMPHOCYTES PERCENT AUTO 13 % (21-46); MONOCYTES ABSOLUTE AUTO 0.97 K/mm3 (0.16-1.47); MONOCYTES PERCENT AUTO 11 % (4-13); Mean Corpuscular HGB 29.9 pg (26.0-34.0); Mean Corpuscular HGB Conc 30.2 g/dL (31.5-36.5); Mean Corpuscular Volume 99 fL (80-100); Mean Platelet Volume 11.1 fL (9.1-12.4); NEUTROPHILS ABSOLUTE AUTO 6.27 K/mm3 (1.96-9.15); NEUTROPHILS PERCENT AUTO 73 % (41-73); Platelet Count 175 K/mm3 (150-400); RDW Coefficient Variation 13.6 % (11.7-14.2); RDW Standard Deviation 48.9 fL (35.1-46.3); Red Blood Cell Count 3.48 M/mm3 (3.80-5.20); White Blood Cell Count 8.58 K/mm3 (4.00-11.30)
[2021-02-25 06:48] LABS: Calcium, Blood 8.3 mg/dL (8.5-10.1); Potassium, Blood 4.1 mmol/L (3.5-5.5); Troponin I 0.028 ng/mL (0.000-0.040)
[2021-02-25 07:03] LABS: Creatine Kinase MB 1.4 ng/mL (0.0-3.6); Creatine Kinase MB Index 0.3 (0.0-4.0)
[2021-02-25] MEDS ORDERED: LEVO750 PO (08:22)
== END 2021-02-25 08:54 | disposition home or self-care (01) ==
LOC: ER 01:36
PROVIDERS: Student in an Organized Health Care Education/Training Program
DX: R53.1 Weakness (principal); W18.30XA Fall on same level, unspecified, initial encounter; Z88.0 Allergy status to penicillin; Z88.5 Allergy status to narcotic agent; Z91.048 Other nonmedicinal substance allergy status; Z88.8 Allergy status to other drugs, medicaments and biological substances; Z79.899 Other long term (current) drug therapy; Z79.52 Long term (current) use of systemic steroids; Z79.891 Long term (current) use of opiate analgesic; Z79.01 Long term (current) use of anticoagulants; I48.91 Unspecified atrial fibrillation; E11.9 Type 2 diabetes mellitus without complications; E03.9 Hypothyroidism, unspecified; I10 Essential (primary) hypertension; Z87.891 Personal history of nicotine dependence
CPT/HCPCS: 36415; 51701; 80048; 81001; 82550; 82553; 83605; 84484; 85025; 93005; 93010; 99285-25; J7030

== ENCOUNTER 2021-03-26 16:08 | Emergency (ER) | payer MEDICARE ==
[~2021-03-26] VITALS: Ht 172.7 cm; Wt 113.4 kg
[~2021-03-26 16:08] MED LIST changes: +LEVO750 PO
[2021-03-26] MEDS ORDERED: ROSUVASTATIN CA20 MG PO (16:46)
[2021-03-26] MEDS ORDERED: OMEP20ER PO (16:48)
[2021-03-26] MEDS ORDERED: Potassium Chlo20 ME1 PO (16:49)
[2021-03-26 17:06] LABS: BASOPHILS ABSOLUTE AUTO 0.06 K/mm3 (0.00-0.23); BASOPHILS PERCENT AUTO 1 % (0-2); EOSINOPHILS ABSOLUTE AUTO 0.13 K/mm3 (0.00-0.68); EOSINOPHILS PERCENT AUTO 2 % (0-6); Hematocrit 36.7 % (33.0-51.0); Hemoglobin 11.3 g/dL (11.5-16.0); IMMATURE GRAN ABSOLUTE AUTO 0.05 K/mm3 (0.00-0.10); IMMATURE GRAN PERCENT AUTO 1 % (0-1); LYMPHOCYTES ABSOLUTE AUTO 1.48 K/mm3 (0.84-5.20); LYMPHOCYTES PERCENT AUTO 20 % (21-46); MONOCYTES ABSOLUTE AUTO 0.69 K/mm3 (0.16-1.47); MONOCYTES PERCENT AUTO 9 % (4-13); Mean Corpuscular HGB 29.4 pg (26.0-34.0); Mean Corpuscular HGB Conc 30.8 g/dL (31.5-36.5); Mean Corpuscular Volume 96 fL (80-100); Mean Platelet Volume 10.4 fL (9.1-12.4); NEUTROPHILS ABSOLUTE AUTO 4.94 K/mm3 (1.96-9.15); NEUTROPHILS PERCENT AUTO 67 % (41-73); Platelet Count 251 K/mm3 (150-400); RDW Coefficient Variation 14.6 % (11.7-14.2); Red Blood Cell Count 3.84 M/mm3 (3.80-5.20); White Blood Cell Count 7.35 K/mm3 (4.00-11.30)
[2021-03-26 17:31] LABS: Alanine Aminotransfer (ALT/SGP 16 U/L (12-78); Albumin, Blood 2.5 g/dL (3.4-5.0); Albumin/Globulin Ratio 0.6 (0.8-1.8); Alk Phos 168 U/L (50-136); Anion Gap 1 mmol/L (6-16); Aspartate Aminotrans (AST/SGOT 18 U/L (12-37); Bilirubin, Total 0.3 mg/dL (0.1-1.0); Blood Urea Nitrogen 12 mg/dL (8-24); Bun/Creatinine Ratio 12.2 (12.0-20.0); CO2, Blood 35 mmol/L (21-32); Calcium, Blood 8.5 mg/dL (8.5-10.1); Chloride, Blood 99 mmol/L (98-108); Creatinine, Blood 0.99 mg/dL (0.40-1.00); Globulin, Blood 4.2 g/dL (2.2-4.0); Glomerular Filtration Rate 54 (60-); Glucose, Blood 124 mg/dL (70-99); Sodium, Blood 135 mmol/L (136-145); Total Protein, Blood 6.7 g/dL (6.4-8.2); Troponin I <0.015 ng/mL (0.000-0.040)
[2021-03-26 17:47] LABS: Prothrombin Time Results >90.0 Sec (9.7-11.5)
[2021-03-26 17:50] LABS: International Normalized Ratio >10.00
[2021-03-26 19:02] LABS: Source, Urine Catheter
[2021-03-26 19:10] LABS: Appearance, Urine Clear (Clear); Bilirubin, Urine Neg (Neg); Blood, Urine 1+ (Neg); Glucose Qualitative, Urine Neg (Neg); Ketones, Urine Neg (Neg); Leukocyte Esterase, Urine Neg (Neg); Nitrite, Urine Neg (Neg); Protein, Urine 1+ (Neg); Specific Gravity, Urine 1.005 (1.003-1.022); Urobilinogen, Urine NORM (Normal)
[2021-03-26 19:13] LABS: Color, Urine Pale Yellow (P-Yellow)
[2021-03-26 19:19] LABS: Bacteria Few /hpf; Red Blood Cells, Urine Rare /hpf (0-2); Squamous Epithelial Cells Not Seen /hpf (Few); White Blood Cells, Urine Rare /hpf (0-5)
== END 2021-03-26 20:00 | disposition home or self-care (01) ==
LOC: ER 16:08
PROVIDERS: Physician Assistant
DX: R79.1 Abnormal coagulation profile (principal); I10 Essential (primary) hypertension; I48.91 Unspecified atrial fibrillation; E11.9 Type 2 diabetes mellitus without complications; J45.909 Unspecified asthma, uncomplicated; Z87.891 Personal history of nicotine dependence; Z88.0 Allergy status to penicillin; Z91.048 Other nonmedicinal substance allergy status; Z88.5 Allergy status to narcotic agent; Z88.6 Allergy status to analgesic agent; Z88.7 Allergy status to serum and vaccine; Z91.041 Radiographic dye allergy status; Z79.899 Other long term (current) drug therapy
CPT/HCPCS: 51701; 70450; 71045; 80053; 81001; 84484; 85025; 85610; 85730; 93005; 93010; 96365; 96375; 99285-25; J2405; J3430

== ENCOUNTER 2021-03-28 00:17 | Observation (INO) | payer MEDICARE ==
[~2021-03-28] VITALS: Ht 172.7 cm; Wt 113.4 kg
[~2021-03-28 00:17] MED LIST changes: +Potassium Chlo20 ME1 PO; +ROSUVASTATIN CA20 MG PO
[2021-03-28 00:58] LABS: BASOPHILS ABSOLUTE AUTO 0.05 K/mm3 (0.00-0.23); BASOPHILS PERCENT AUTO 1 % (0-2); EOSINOPHILS ABSOLUTE AUTO 0.07 K/mm3 (0.00-0.68); EOSINOPHILS PERCENT AUTO 1 % (0-6); Hematocrit 36.2 % (33.0-51.0); Hemoglobin 11.2 g/dL (11.5-16.0); IMMATURE GRAN ABSOLUTE AUTO 0.06 K/mm3 (0.00-0.10); IMMATURE GRAN PERCENT AUTO 1 % (0-1); LYMPHOCYTES ABSOLUTE AUTO 2.49 K/mm3 (0.84-5.20); LYMPHOCYTES PERCENT AUTO 26 % (21-46); MONOCYTES ABSOLUTE AUTO 0.92 K/mm3 (0.16-1.47); MONOCYTES PERCENT AUTO 10 % (4-13); Mean Corpuscular HGB 29.6 pg (26.0-34.0); Mean Corpuscular HGB Conc 30.9 g/dL (31.5-36.5); Mean Corpuscular Volume 96 fL (80-100); NEUTROPHILS ABSOLUTE AUTO 5.85 K/mm3 (1.96-9.15); NEUTROPHILS PERCENT AUTO 62 % (41-73); Platelet Count 225 K/mm3 (150-400); RDW Coefficient Variation 14.7 % (11.7-14.2); RDW Standard Deviation 51.3 fL (35.1-46.3); Red Blood Cell Count 3.78 M/mm3 (3.80-5.20); White Blood Cell Count 9.44 K/mm3 (4.00-11.30)
[2021-03-28 01:21] LABS: Bicarbonate Venous 32.5 mmol/L (24.0-30.0); PCO2 Venous 63.5 mmHg (38-42); pH Blood Venous 7.37 (7.34-7.37)
[2021-03-28 01:31] LABS: International Normalized Ratio 1.17; Prothrombin Time Results 12.2 Sec (9.7-11.5)
[2021-03-28 01:32] LABS: Source, Urine Catheter
[2021-03-28 01:34] LABS: Blood, Urine 2+ (Neg); Glucose Qualitative, Urine Neg (Neg); Ketones, Urine 1+ (Neg); Leukocyte Esterase, Urine 1+ (Neg); Nitrite, Urine Neg (Neg); Protein, Urine 2+ (Neg); Urobilinogen, Urine 2+ (Normal)
[2021-03-28 01:36] LABS: Appearance, Urine Hazy (Clear); Bilirubin, Urine 1+ (Neg); Color, Urine Amber (P-Yellow)
[2021-03-28 01:41] LABS: Amorphous Light (0-Heavy); Bacteria Rare /hpf; Mucus Light (0-Heavy); Red Blood Cells, Urine 0-2 /hpf (0-2); Squamous Epithelial Cells Not Seen /hpf (Few)
[2021-03-28 01:45] LABS: Influenza A, PCR NEGATIVE (NEGATIVE); Influenza B, PCR NEGATIVE (NEGATIVE); Resp Syncytial Virus, PCR NEGATIVE (NEGATIVE); SARS-Cov-2 (COVID-19) PCR, MMC NEGATIVE (NEGATIVE)
[2021-03-28 02:04] LABS: Calcium, Blood 8.6 mg/dL (8.5-10.1); Potassium, Blood 3.8 mmol/L (3.5-5.5)
[2021-03-28 03:12] LABS: Ethanol (Alcohol), Blood, Med <3 mg/dL
[2021-03-28 03:48] LABS: U Amphetamine Screen Not Detected; U Barbituate Screen Not Detected; U Benzodiazapine Screen Not Detected; U Buprenorphine Screen Not Detected; U Cannabinoids Screen Not Detected; U Cocaine Screen Not Detected; U Methadone Screen Not Detected; U Methamphetamine Screen Not Detected; U Opiates Screen Not Detected; U Oxycodone Screen DETECTED; U Phencyclidine Screen Not Detected; U Propoxyphene Screen Not Detected
[2021-03-28] MEDS ORDERED: RAMELTEON8 MG PO (03:49)
[2021-03-28] MEDS ORDERED: SYNTHROID150 MC1 PO (03:49)
[2021-03-28] MEDS ORDERED: OXYCODONE-ACET1 EAC2 PO (03:50)
[2021-03-28] MEDS ORDERED: OXYCONTIN20 M1 PO (03:50)
[2021-03-28 06:43] LABS: Bun/Creatinine Ratio 12.6 (12.0-20.0); Calcium, Blood 8.4 mg/dL (8.5-10.1); Creatinine, Blood 0.95 mg/dL (0.40-1.00); Magnesium, Blood 1.9 mg/dL (1.6-2.4); Potassium, Blood 5.3 mmol/L (3.5-5.5)
--- NOTE | 2021-03-28 18:34 | NUR ---
PT ARRIVED TO ROOM AT 1620 AOX2. PT DOES CRY OUT WHEN MOVED MUCH STATING SHE HAS CHRONIC BACK PAIN. PT SETTLED INTO BED AND CALL LIGHT EXPLAINED AND PUT WITHIN REACH. BED ALARM IN PLACE. WILL CONTINUE TO MONITOR.
[2021-03-28] MEDS ORDERED: MONT10T PO (21:19)
[2021-03-28] MEDS ORDERED: OXYCODONE HCL E PO (21:23)
--- NOTE | 2021-03-28 21:51 | NUR ---
PT DROWSY AND ASPIRATED ON SALIVA THIS NURSE ELEVATAED HOB TO 45, HS MEDICATION HELD PT REMAINS NPO. WILL CONTINUE TO MONITOR THIS SHIFT.
[2021-03-29 05:28] LABS: International Normalized Ratio 1.18; Prothrombin Time Results 12.3 Sec (9.7-11.5)
[2021-03-29 05:48] LABS: Albumin, Blood 2.4 g/dL (3.4-5.0); Anion Gap 6 mmol/L (6-16); Blood Urea Nitrogen 9 mg/dL (8-24); Bun/Creatinine Ratio 11.5 (12.0-20.0); CO2, Blood 33 mmol/L (21-32); Calcium, Blood 8.5 mg/dL (8.5-10.1); Chloride, Blood 103 mmol/L (98-108); Creatinine, Blood 0.79 mg/dL (0.40-1.00); Glomerular Filtration Rate >60 (60-); Glucose, Blood 88 mg/dL (70-99); Phosphorus, Blood 3.3 mg/dL (2.5-4.9); Potassium, Blood 3.6 mmol/L (3.5-5.5); Sodium, Blood 142 mmol/L (136-145)
--- NOTE | 2021-03-29 06:17 | NUR ---
SHIFT SUMMARY PT AOX2-3 WHEN AWAKE BUT VERY DROWSY AND SLEPT MOST OF THIS SHIFT. PT C/O PAIN THROUGHOUT THE SHIFT AND MEDICATED PER EMAR, WHILE REPOSITIONED OFTEN FOR COMFORT. THE PT REMAINS NPO AND STILL HAS EPISODES OF ASPIRATIONS ON SALIVA IN THEIR SLEEP. PT CURRENTLY WATCHING TV AND DENIES ANY OTHER NEEDS AT THE MOMENT, WILL CONTINUE TO MONITOR UNTIL REPORT IS GIVEN.
--- NOTE | 2021-03-29 16:50 | NUR ---
PT IS AOX3 AND COOPERATIVE OF CARE. PT DID NOT HAVE GOOD PAIN CONTROL FOR HER BACK PAIN THIS AM AND DR RODRIGUEZ ADDED MEDICATION TO EMAR. PT DOING BETTER WITH HER PAIN CONTROL WITH ORAL PAIN MEDS. PT TREATED FOR CONSTIPATION TODAY PER EMAR WITH NO RESULTS. PT HAS URINE RETENTION WELL AND HAD BLADDER SCAN OF 458. DR RODRIGUEZ WAS NOTIFIED AND ORDERS WERE PLACED FOR SCHEDULED BLADDER SCANS AND STRAIGHT CATHING IF NEEDED. NO DISTRESS NOTED AT THIS TIME. BED ALARM IN PLACE WILL CONTINUE TO MONITOR.
--- NOTE | 2021-03-29 21:04 | NUR ---
patient complaining of sore throat. currently on 5L 02 via FL. Will add humidity and contact hospitalist for throat lozenges. Just had incont void in briefs. Will rescan bladder at 2400 per order
--- NOTE | 2021-03-30 02:08 | NUR ---
REPORT TO BRI ENCARNACION RN REGARDING THIS PATIENT AND HER MOVE TO ROOM 331. ALL QUESTIONS ANSWERED
--- NOTE | 2021-03-30 02:33 | NUR ---
TRANSFER REPORT RECEIVED FROM RICARDO FAJARDO AT 0203. PT WILL BE TRANSFERRED FROM RM 349 TO RM 331. PT ARRIVED TO RM 331 VIA BED, ACCOMPANIED BY 2 NURSES AND 1 FLOOR WORKER TRANSFER BAY AT 0225. PT ON 5L O2 VIA NC WITH HUMIDIFIER. L WRIST IV WITH D5W LR AT 50ML/HR. PT AAOX3, ABLE TO VOICE HER NEEDS. PT WITH CARDIAC TELE MONITORING, BOX #[id number], SINUS RHYTHM, HR 69 AT 0238-VERIFIED WITH KATELYN ASSOCIATE PATHOLOGIST. ATTENDS IN PLACE. BED IN LOW POSITION WITH THE CALL LIGHT WITHIN EASY REACH. WILL CONTINUE TO MONITOR.
[2021-03-30 06:01] LABS: International Normalized Ratio 1.65; Prothrombin Time Results 16.8 Sec (9.7-11.5)
--- NOTE | 2021-03-30 06:49 | NUR ---
SHIFT SUMMARY ASSUMED CARE AT 0225. NO COMPLAINTS VOICED. RESTED WELL. IV FLUID BAG COMPLETED. IV SITE BENIGN. TURNED AND REPOSITIONED-REQUIRES X2 ASSIST. BED IS IN LOW POSITION WITH THE CALL LIGHT WITHIN EASY REACH. WILL CONTINUE TO MONITOR.
--- NOTE | 2021-03-30 10:57 | NUR ---
ADVISED PATIENT C/O RT HIP POST 4 FALLS AT HOME. PAINFUL WITH TURNING IN BED. OK TO ORDER 2 VIEW RT HIP XRAY.
--- NOTE | 2021-03-30 11:00 | NUR ---
PATIENT GIVEN WARMED PRUNE JUICE, MELTED PAT OF BUTTER MIXED WITH APPLE JUICE FOR CONSTIPATION.
--- NOTE | 2021-03-30 12:21 | NUR ---
PER DR.JAIN TAYLOR TO ORDER RT KNEE XRAY.
--- NOTE | 2021-03-30 16:02 | NUR ---
DISCUSS PATIENT CONDITION IN ROOM WITH SON. AWARE P.T. RECOMMENDS SNF. STS PATIENT WILL DISCUSS TOMORROW WITH DAUGHTER, DIANN, WHO SHE LIVES WITH.
--- NOTE | 2021-03-30 16:41 | NUR ---
ALERT. ORIENTED. PAINFUL WITH MOVEMENT TO RT HIP/KNEE. BRUISE TO RT BUTTOCK, CLEARING. EDEMA BLE 1-2+. <200 ML BLADDER. ON 5 LPM N/C. POSSIBLE TRANSFER SNF WHEN AVAILABLE. PATIENT TO DISCUSS WITH DAUGHTER TOMORROW. PER TECH HAS BEEN SR 70-80'S. HX AFIB. WCTM
--- NOTE | 2021-03-31 05:25 | NUR ---
SHIFT SUMMARY PT IS A 85 Y/O FEMALE, ADMITTED FOR DELIRIUM AND CURRENTLY AWAITING PLACEMENT. SHE IS A&O X 3, BEDREST AND INCONTINENT OF BOWEL AND BLADDER. PT WAS MEDICATED FOR CHRONIC BACK, RLE PAIN AND VELEZ WITH PRN OXYCONTIN AND TYLENOL. PT IS ON 5L HUMIDIFIED O2 VIA NC, SATTING > 90%. VITAL SIGNS STABLE. NO ACUTE CHANGES IN PT CONDITION NOTED DURING THE NIGHT. WILL CONTINUE TO MONITOR AND TREAT PER EMAR UNTIL HAND OFF TO DAY SHIFT RN.
[2021-03-31 06:27] LABS: International Normalized Ratio 1.97; Prothrombin Time Results 19.8 Sec (9.7-11.5)
--- NOTE | 2021-03-31 19:18 | NUR ---
SHIFT SUMMARY: PT A/O X 3 ON BEDREST. PT HAD PT/OT TODAY BUT DID NOT TOLERATE GETTING UP OOB. PT IS TO DANGLE AT BEDSIDE WITH MEALS, BUT PT WAS IN SEVERE PAIN POST GETTING BACK TO BED AFTER LUNCH. FENTANYL WAS GIVEN AND BROUGHT PAIN DOWN TO "TOLERABLE" LEVEL. PT REPORTS PAIN IN L LEG, LARGE AMOUNT OF PURPLE BRUISING TO LOWER LEFT LEG. PT CONTINUES TO BE ON 5 LPM VIA NC.
[2021-04-01 05:11] LABS: International Normalized Ratio 2.07; Prothrombin Time Results 20.7 Sec (9.7-11.5)
--- NOTE | 2021-04-01 06:58 | NUR ---
SHIFT SUMMARY ASSUMED CARE AT 1900. PT AAOX3 WITH OCCASIONAL FORGETFULNESS-EASILY REORIENTED. REMAINS ON 5L HIGH FLOW HUMIDIFIED O2 VIA NC, O2 SAT >90%. CARDIAC TELEMETRY MONITORING CONTINUES, BOX# [id number], PACED RHYTHM, HR 70, VERIFIED WITH LYNETTE VILLAFUERTE. IV SITE BENIGN. PT MEDICATED X1 WITH PRN PAIN MEDICATION 2/2 C/O ACUTE ON CHRONIC LOW BACK PAIN THAT DOES DOWN HER BILATERAL LEGS. PT WAS GOING TO BE BLADDER SCAN BUT WHEN CHECKED, PT HAS URINATED SO MUCH THAT SHE SOAKED THROUGH HER ATTENDS AND HER CHUCKS/BACKSTER. THIS WAS THE SECOND OCURRANCE. PT TURNED AND REPOSITIONED. BED IN LOW POSITION WITH THE CALL LIGHT WITHIN EASY REACH AND BED ALARM ACTIVATED.
--- NOTE | 2021-04-01 15:53 | NUR ---
SHIFT SUMMARY PT IS A&O AND MOSTLY CO-OP WITH CARE. AWAKE AT START OF SHIFT. SITTING UP TO EOB FOR BREAKFAST. PT MOANS AND C/O PAIN WITH ANY MOVEMENT, ESPECIALLY TO HER BACK AND LEGS. IMAGING HERE EARLY FOR XRAY OF L KNEE. BOTH LEGS SWOLLEN AND PAINFUL. PT IS MORBIDLY OBESE, ADDING DIFFICUTLY TO MOBILITY. DR RODRIGUEZ IN TO SEE PT AFTER XRAY, AND DISCUSSING PLAN OF CARE AND ALSO REPORING R KNEE XRAY SHOWING ARTHRITIS CAUSE OF PAIN. PT ENCOURAGED TO D/C TO REHAB TO ASSIST WITH MOBILITY. PT INCONTINENT OF BOWEL AND BLADDER. BOWEL CARE GIVEN FOR CONSTIPATION; STOOLS LOOSE NOW. FAMILY IN TO VISIT THIS AFTERNOON. PT REPOSITIONED NEEDED TO KEEP OFF BUTTOCKS. MEDICATED PER EMAR THIS AM FOR C/O PAIN. DENIES FURTHER NEEDS AT THIS TIME. CALL LT IN REACH.
[2021-04-02 05:20] LABS: International Normalized Ratio 1.98; Prothrombin Time Results 19.9 Sec (9.7-11.5)
--- NOTE | 2021-04-02 06:37 | NUR ---
SHIFT SUMMARY ASSUMED CARE AT 1900. NO ACUTE EVENTS OVERNIGHT. PT MEDICATED FOR PAIN ONCE WITH OXYCONTIN 20MG LAST NIGHT WOTH GOOD EFFECT. REMAINS ON 3L O2 VIA NC, O2 SATS >95%. TURNED AND REPOSITIONED. BARRIER CREAM APPLIED TO GROIN, PERIAREA AND BUTTOCKS. PT HAS BEEN VOIDING. WHEN SHE WAS ABOUT TO BE BLADDER SCANNED THIS MORNING, SHE SOAKED HER ATTENDS AND STATED THAT SHE DIDNOT NEED IT. PT VERBALIZED LOOKING FORWARD TO GOING HOME. PT DID NOT HAS LOOSE STOOLS THIS SHIFT, THEY WERE FORMED PER SID MARADIAGA. BED ALARM REMAINS ACTIVATED, BED IS IN LOW POSITION WITH THE CALL LIGHT WITHIN EASY REACH. WILL CONTINUE TO MONITOR.
[2021-04-02] MEDS ORDERED: EUTHYROX175 MCG PO (13:30)
[2021-04-02] MEDS ORDERED: MIRALAX17 GM PO (13:30)
[2021-04-02] MEDS ORDERED: Milk Of Ma400 MG/5 M PO (13:30)
[2021-04-02] MEDS ORDERED: WARF2.5 PO (13:31)
[2021-04-02] MEDS ORDERED: SENN187 PO (13:31)
[2021-04-02] MEDS ORDERED: WARF5 PO (13:33)
--- NOTE | 2021-04-02 15:42 | NUR ---
SHIFT SUMMARY PT REMAINS MEDICALLY STABLE. TO BE D/C TO HOME WITH H/H PER PT AND FAMILY REQUEST YESTERDAY. PT REPORTS THAT SHE HAS LOTS OF HELP AT HOME AND DOES NOT NEED TO GO TO SNF. PT IS VERY WEAK AND LACKS MOTIVATION TO BECOME MORE MOBILE. PT MEDICATED FOR C/O PAIN TO LEGS, KNEES, AND BACK. CHANGED FOR INCONTINENCE. REDNESS AND PAIN TO CITLALLI/RECTAL AREA IMPROVED FROM YESTERDAY AFTER APPLYING BARRIER CREAM. D/C MEDS FAXED TO [facility], PER PT REQUEST. D/C INSTRUCTIONS AND MEDS REVIEWED WITH PT; VERBALIZED UNDERSTANDING. PT'S DAUGHTER AND FAMILY TO COME AND PICK PT UP AND BRING HER CLOTHES. RESTING QUIETLY AT THIS TIME, WAITING FOR FAMILY.
--- NOTE | 2021-04-02 17:42 | NUR ---
PT'S DAUGHTER HERE WITH CLOTHES, ASSISTING PT IN GETTING DRESSED. PT ABLE TO TX TO LRG W/C WITH SBA FROM DAUGHTER. PT THE ASSISTED OUT TO DAUGHTERS VEHICLE AND ABLE TO TX SELF WITH MINIMAL ASSIST FROM DAUGHTER.
== END 2021-04-02 17:17 | disposition home health service (06) ==
LOC: ER 00:17 → MEDS 04:14 → ERHOLD 04:14 → MEDS 04:15 → ERHOLD 18:19 → MEDS 18:19
PROVIDERS: Family Medicine; Internal Medicine; Student in an Organized Health Care Education/Training Program; ADMIT Internal Medicine
DX: G92.8 Other toxic encephalopathy (principal); E03.9 Hypothyroidism, unspecified; I48.20 Chronic atrial fibrillation, unspecified; E11.9 Type 2 diabetes mellitus without complications; G31.84 Mild cognitive impairment of uncertain or unknown etiology; K59.00 Constipation, unspecified; J45.909 Unspecified asthma, uncomplicated; M17.0 Bilateral primary osteoarthritis of knee; M16.0 Bilateral primary osteoarthritis of hip; M19.90 Unspecified osteoarthritis, unspecified site; E66.01 Morbid (severe) obesity due to excess calories; Z74.09 Other reduced mobility; Z79.01 Long term (current) use of anticoagulants; Z66 Do not resuscitate; Z87.440 Personal history of urinary (tract) infections; Z86.14 Personal history of Methicillin resistant Staphylococcus aureus infection; Z87.891 Personal history of nicotine dependence; Z91.040 Latex allergy status; Z88.5 Allergy status to narcotic agent; Z88.0 Allergy status to penicillin; Z88.7 Allergy status to serum and vaccine; Z88.8 Allergy status to other drugs, medicaments and biological substances; Z91.048 Other nonmedicinal substance allergy status; Z95.0 Presence of cardiac pacemaker; Z51.81 Encounter for therapeutic drug level monitoring; Z68.38 Body mass index [BMI] 38.0-38.9, adult; Z20.822 Contact with and (suspected) exposure to COVID-19
CPT/HCPCS: 0241U; 36415; 51701; 70450; 71045; 73502; 73560-LT; 73560-RT; 80048; 80069; 81001; 82803; 82947; 83735; 84443; 85025; 85610; 87086; 92610; 93005; 93010; 94640; 94762; 96374; 96375; 96376; 97110; 97162; 97166; 97530; 99285-25; A9270; G0378; G0480; J2405; J3010; J7042; J7120; J7121

== ENCOUNTER → 2021-06-14 | Outpatient (CLI) | payer MEDICARE ==
[~2021-06-14] MED LIST changes: +DOCUZEN 8.6-501 EACH PO; +EUTHYROX175 MCG PO; +HYDR1TAB94 PO; +MIRALAX17 GM PO; +Milk Of Ma400 MG/5 M PO; +OXYC10ER PO; +OXYCODONE HCL E PO; +OXYCODONE-ACET1 EAC2 PO; +OXYCONTIN20 M1 PO; +RAMELTEON8 MG PO; +SENN187 PO; +SYNTHROID150 MC1 PO; +WARF2.5 PO; +XARELTO20 MG PO
[2021-06-14 17:57] LABS: BASOPHILS ABSOLUTE AUTO 0.01 K/mm3 (0.00-0.23); BASOPHILS PERCENT AUTO 0 % (0-2); EOSINOPHILS ABSOLUTE AUTO 0.01 K/mm3 (0.00-0.68); EOSINOPHILS PERCENT AUTO 0 % (0-6); Hematocrit 36.7 % (33.0-51.0); Hemoglobin 11.6 g/dL (11.5-16.0); IMMATURE GRAN ABSOLUTE AUTO 0.07 K/mm3 (0.00-0.10); IMMATURE GRAN PERCENT AUTO 1 % (0-1); LYMPHOCYTES PERCENT AUTO 12 % (21-46); MONOCYTES ABSOLUTE AUTO 0.28 K/mm3 (0.16-1.47); MONOCYTES PERCENT AUTO 2 % (4-13); Mean Corpuscular HGB 28.6 pg (26.0-34.0); Mean Corpuscular HGB Conc 31.6 g/dL (31.5-36.5); Mean Corpuscular Volume 91 fL (80-100); Mean Platelet Volume 12.8 fL (9.1-12.4); NEUTROPHILS PERCENT AUTO 85 % (41-73); Platelet Count 242 K/mm3 (150-400); RDW Coefficient Variation 17.2 % (11.7-14.2); RDW Standard Deviation 56.5 fL (35.1-46.3); Red Blood Cell Count 4.05 M/mm3 (3.80-5.20); White Blood Cell Count 12.77 K/mm3 (4.00-11.30)
== END ==
LOC: LAB SHORT 17:53
PROVIDERS: Family Medicine
DX: K92.1 Melena (principal)
CPT/HCPCS: 85025

== ENCOUNTER 2021-08-06 18:00 | Inpatient (IN) | payer MEDICARE ==
[~2021-08-06] VITALS: Ht 162.6 cm; Wt 101.6 kg
[2021-08-06 18:38] LABS: BASOPHILS ABSOLUTE AUTO 0.02 K/mm3 (0.00-0.23); BASOPHILS PERCENT AUTO 0 % (0-2); EOSINOPHILS PERCENT AUTO 0 % (0-6); Hematocrit 39.3 % (33.0-51.0); Hemoglobin 11.9 g/dL (11.5-16.0); IMMATURE GRAN ABSOLUTE AUTO 0.05 K/mm3 (0.00-0.10); IMMATURE GRAN PERCENT AUTO 1 % (0-1); LYMPHOCYTES ABSOLUTE AUTO 1.46 K/mm3 (0.84-5.20); LYMPHOCYTES PERCENT AUTO 17 % (21-46); MONOCYTES ABSOLUTE AUTO 0.38 K/mm3 (0.16-1.47); MONOCYTES PERCENT AUTO 4 % (4-13); Mean Corpuscular HGB 28.7 pg (26.0-34.0); Mean Corpuscular HGB Conc 30.3 g/dL (31.5-36.5); Mean Corpuscular Volume 95 fL (80-100); Mean Platelet Volume 12.2 fL (9.1-12.4); NEUTROPHILS ABSOLUTE AUTO 6.95 K/mm3 (1.96-9.15); NEUTROPHILS PERCENT AUTO 78 % (41-73); Platelet Count 266 K/mm3 (150-400); RDW Coefficient Variation 17.8 % (11.7-14.2); RDW Standard Deviation 62.7 fL (35.1-46.3); Red Blood Cell Count 4.14 M/mm3 (3.80-5.20); White Blood Cell Count 8.86 K/mm3 (4.00-11.30)
[2021-08-06 18:48] LABS: Albumin, Blood 2.9 g/dL (3.4-5.0); Albumin/Globulin Ratio 0.9 (0.8-1.8); Bilirubin, Total 0.5 mg/dL (0.1-1.0); Bun/Creatinine Ratio 16.6 (12.0-20.0); Calcium, Blood 8.7 mg/dL (8.5-10.1); Creatinine, Blood 0.72 mg/dL (0.40-1.00); Globulin, Blood 3.4 g/dL (2.2-4.0); Potassium, Blood 3.7 mmol/L (3.5-5.5); Total Protein, Blood 6.3 g/dL (6.4-8.2)
[2021-08-06] MEDS ORDERED: OMEP20ER PO (18:54)
[2021-08-06] MEDS ORDERED: BUME2 PO (18:54)
[2021-08-06] MEDS ORDERED: EUTHYROX175 MCG PO (18:54)
[2021-08-06] MEDS ORDERED: Cymbalta20 MG PO (18:55)
[2021-08-06 19:23] LABS: Source, Urine Straight Cath
[2021-08-06 19:28] LABS: Appearance, Urine Cloudy (Clear); Bilirubin, Urine Neg (Neg); Blood, Urine Neg (Neg); Color, Urine Yellow (P-Yellow); Glucose Qualitative, Urine Neg (Neg); Ketones, Urine Neg (Neg); Leukocyte Esterase, Urine 3+ (Neg); Nitrite, Urine Pos (Neg); Protein, Urine Neg (Neg); Urobilinogen, Urine 1+ (Normal)
[2021-08-06 19:34] LABS: Bacteria Many /hpf; White Blood Cells, Urine TNTC /hpf (0-5)
[2021-08-06 19:35] LABS: Red Blood Cells, Urine 0-2 /hpf (0-2); Squamous Epithelial Cells Few /hpf (Few)
[2021-08-06 20:12] LABS: Base Excess Venous 23.8 mmol/L; Bicarbonate Venous 45.6 mmol/L (24.0-30.0); PO2 Venous 114 mmHg (38-42); pH Blood Venous 7.55 (7.34-7.37)
[2021-08-06 21:06] LABS: Influenza A, PCR NEGATIVE (NEGATIVE); Influenza B, PCR NEGATIVE (NEGATIVE); Resp Syncytial Virus, PCR NEGATIVE (NEGATIVE); SARS-Cov-2 (COVID-19) PCR, MMC NEGATIVE (NEGATIVE)
[2021-08-06 23:16] LABS: Free Thyroxine 2.03 ng/dL (0.70-1.60); Thyroid Stimulating Hormone 0.465 uIU/mL (0.360-4.800)
[2021-08-07 00:05] LABS: PCO2 Arterial 54.1 mmHg (35-45); PO2 Arterial 61.2 mmHg (80-100); pH Blood Arterial 7.54 (7.35-7.45)
[2021-08-07 04:54] LABS: BASOPHILS ABSOLUTE AUTO 0.04 K/mm3 (0.00-0.23); BASOPHILS PERCENT AUTO 0 % (0-2); EOSINOPHILS ABSOLUTE AUTO 0.01 K/mm3 (0.00-0.68); EOSINOPHILS PERCENT AUTO 0 % (0-6); Hematocrit 34.2 % (33.0-51.0); Hemoglobin 10.5 g/dL (11.5-16.0); IMMATURE GRAN ABSOLUTE AUTO 0.09 K/mm3 (0.00-0.10); IMMATURE GRAN PERCENT AUTO 1 % (0-1); LYMPHOCYTES ABSOLUTE AUTO 2.33 K/mm3 (0.84-5.20); LYMPHOCYTES PERCENT AUTO 18 % (21-46); MONOCYTES ABSOLUTE AUTO 1.19 K/mm3 (0.16-1.47); MONOCYTES PERCENT AUTO 9 % (4-13); Mean Corpuscular HGB 28.8 pg (26.0-34.0); Mean Corpuscular HGB Conc 30.7 g/dL (31.5-36.5); Mean Corpuscular Volume 94 fL (80-100); Mean Platelet Volume 11.9 fL (9.1-12.4); NEUTROPHILS ABSOLUTE AUTO 9.02 K/mm3 (1.96-9.15); NEUTROPHILS PERCENT AUTO 71 % (41-73); Platelet Count 209 K/mm3 (150-400); RDW Coefficient Variation 18.1 % (11.7-14.2); RDW Standard Deviation 62.4 fL (35.1-46.3); Red Blood Cell Count 3.64 M/mm3 (3.80-5.20); White Blood Cell Count 12.68 K/mm3 (4.00-11.30)
[2021-08-07 05:16] LABS: Albumin, Blood 2.3 g/dL (3.4-5.0); Albumin/Globulin Ratio 0.8 (0.8-1.8); Bilirubin, Total 0.6 mg/dL (0.1-1.0); Bun/Creatinine Ratio 13.7 (12.0-20.0); Creatinine, Blood 0.66 mg/dL (0.40-1.00); Globulin, Blood 2.8 g/dL (2.2-4.0); Potassium, Blood 3.2 mmol/L (3.5-5.5); Total Protein, Blood 5.1 g/dL (6.4-8.2)
[2021-08-08 05:07] LABS: BASOPHILS ABSOLUTE AUTO 0.05 K/mm3 (0.00-0.23); BASOPHILS PERCENT AUTO 1 % (0-2); EOSINOPHILS ABSOLUTE AUTO 0.14 K/mm3 (0.00-0.68); EOSINOPHILS PERCENT AUTO 2 % (0-6); Hematocrit 35.8 % (33.0-51.0); Hemoglobin 10.9 g/dL (11.5-16.0); IMMATURE GRAN ABSOLUTE AUTO 0.05 K/mm3 (0.00-0.10); IMMATURE GRAN PERCENT AUTO 1 % (0-1); LYMPHOCYTES ABSOLUTE AUTO 2.16 K/mm3 (0.84-5.20); LYMPHOCYTES PERCENT AUTO 26 % (21-46); MONOCYTES ABSOLUTE AUTO 0.84 K/mm3 (0.16-1.47); MONOCYTES PERCENT AUTO 10 % (4-13); Mean Corpuscular HGB 28.7 pg (26.0-34.0); Mean Corpuscular HGB Conc 30.4 g/dL (31.5-36.5); Mean Corpuscular Volume 94 fL (80-100); NEUTROPHILS ABSOLUTE AUTO 5.04 K/mm3 (1.96-9.15); NEUTROPHILS PERCENT AUTO 61 % (41-73); Platelet Count 180 K/mm3 (150-400); White Blood Cell Count 8.28 K/mm3 (4.00-11.30)
[2021-08-08 05:29] LABS: Albumin, Blood 2.5 g/dL (3.4-5.0); Anion Gap 5 mmol/L (6-16); Blood Urea Nitrogen 8 mg/dL (8-24); Bun/Creatinine Ratio 11.1 (12.0-20.0); CO2, Blood 41 mmol/L (21-32); Calcium, Blood 8.5 mg/dL (8.5-10.1); Chloride, Blood 95 mmol/L (98-108); Creatinine, Blood 0.72 mg/dL (0.40-1.00); Glomerular Filtration Rate 83 (60-); Glucose, Blood 94 mg/dL (70-99); Magnesium, Blood 1.8 mg/dL (1.6-2.4); Phosphorus, Blood 2.8 mg/dL (2.5-4.9); Potassium, Blood 3.5 mmol/L (3.5-5.5); Sodium, Blood 141 mmol/L (136-145)
[2021-08-08] MEDS ORDERED: LEVSOD137 PO (12:38)
[2021-08-08] MEDS ORDERED: NITR100CA PO (12:39)
[2021-08-08] MEDS ORDERED: VISBIOME 112.51 EACH PO (12:39)
== END 2021-08-08 14:18 | disposition home health service (06) | DRG 689 ==
LOC: ER 18:00 → MEDS 23:31
PROVIDERS: Internal Medicine; Student in an Organized Health Care Education/Training Program; ADMIT Internal Medicine
DX: N39.0 Urinary tract infection, site not specified (principal); G93.41 Metabolic encephalopathy; I48.20 Chronic atrial fibrillation, unspecified; Z66 Do not resuscitate; G89.29 Other chronic pain; E66.01 Morbid (severe) obesity due to excess calories; E03.9 Hypothyroidism, unspecified; I10 Essential (primary) hypertension; Z68.36 Body mass index [BMI] 36.0-36.9, adult; I48.0 Paroxysmal atrial fibrillation; J45.909 Unspecified asthma, uncomplicated; Z20.822 Contact with and (suspected) exposure to COVID-19; M79.7 Fibromyalgia; Z91.040 Latex allergy status; E11.22 Type 2 diabetes mellitus with diabetic chronic kidney disease; N18.30 Chronic kidney disease, stage 3 unspecified; Z74.09 Other reduced mobility; K21.9 Gastro-esophageal reflux disease without esophagitis; Z95.0 Presence of cardiac pacemaker; Z90.49 Acquired absence of other specified parts of digestive tract; Z90.710 Acquired absence of both cervix and uterus; Z98.890 Other specified postprocedural states; Z87.891 Personal history of nicotine dependence; Z79.899 Other long term (current) drug therapy; Z88.0 Allergy status to penicillin; Z88.6 Allergy status to analgesic agent; Z88.8 Allergy status to other drugs, medicaments and biological substances; Z88.5 Allergy status to narcotic agent
CPT/HCPCS: 0241U; 36415; 36600; 70450; 71045; 80053; 80069; 81001; 82140; 82803; 83735; 83880; 84145; 84439; 84443; 85025; 87077; 87086; 87186; 93005; 93010; 93971; 94760; 96374; 97162; 97530; 99285-25; A9270; J0360; J1650; J1956; J2405; J7030

== ENCOUNTER 2021-09-04 06:29 | Day surgery (SDC) | payer MEDICARE ==
[~2021-09-04] VITALS: Ht 172.7 cm; Wt 100.0 kg
[~2021-09-04 06:29] MED LIST changes: +BRINTELLIX10 MG PO; +Cymbalta20 MG PO; +LEVSOD137 PO; +NITR100CA PO; +ONDA4ODT SL; +VISBIOME 112.51 EACH PO
--- NOTE | 2021-09-04 12:51 | NUR ---
PT DRESSED, IV DC'D INTACT, TR BAND REMOVED, DRESSING AND SPLINT PLACED, PT DC'D BY WC, DAUGHTER DRIVING PT HOME.
== END 2021-09-04 12:25 | disposition home or self-care (01) ==
LOC: MHTC 06:29
DX: I35.0 Nonrheumatic aortic (valve) stenosis (principal); Z88.0 Allergy status to penicillin; Z88.5 Allergy status to narcotic agent; Z91.040 Latex allergy status
CPT/HCPCS: 76937; 93280; 93454; 99152; 99153; C1769; C1887; C1894; J1200; J1644; J1720; J2250; J3010; J7030; J7040; Q9967

== ENCOUNTER 2022-04-08 16:58 | Inpatient (IN) | payer MEDICARE ==
[~2022-04-08] VITALS: Ht 172.7 cm; Wt 87.4 kg
[2022-04-08 18:31] LABS: BASOPHILS ABSOLUTE AUTO 0.11 K/mm3 (0.00-0.23); BASOPHILS PERCENT AUTO 0 % (0-2); EOSINOPHILS PERCENT AUTO 0 % (0-6); Hematocrit 32.8 % (33.0-51.0); Hemoglobin 10.5 g/dL (11.5-16.0); IMMATURE GRAN ABSOLUTE AUTO 1.98 K/mm3 (0.00-0.10); IMMATURE GRAN PERCENT AUTO 6 % (0-1); LYMPHOCYTES ABSOLUTE AUTO 1.54 K/mm3 (0.84-5.20); LYMPHOCYTES PERCENT AUTO 5 % (21-46); MONOCYTES ABSOLUTE AUTO 2.02 K/mm3 (0.16-1.47); MONOCYTES PERCENT AUTO 6 % (4-13); Mean Corpuscular HGB 28.4 pg (26.0-34.0); Mean Corpuscular Volume 89 fL (80-100); Mean Platelet Volume 11.9 fL (9.1-12.4); NEUTROPHILS PERCENT AUTO 82 % (41-73); Platelet Count 354 K/mm3 (150-400); RDW Coefficient Variation 17.3 % (11.7-14.2); RDW Standard Deviation 53.4 fL (35.1-46.3); White Blood Cell Count 31.75 K/mm3 (4.00-11.30)
[2022-04-08 18:34] LABS: Albumin, Blood 1.8 g/dL (3.4-5.0); Albumin/Globulin Ratio 0.4 (0.8-1.8); Bilirubin, Total 0.4 mg/dL (0.1-1.0); Bun/Creatinine Ratio 21.2 (12.0-20.0); Calcium, Blood 8.4 mg/dL (8.5-10.1); Creatinine, Blood 0.8 mg/dL (0.40-1.00); Globulin, Blood 4.2 g/dL (2.2-4.0); Potassium, Blood 5.3 mmol/L (3.5-5.5)
[2022-04-08 20:32] LABS: Source, Urine Straight Cath
[2022-04-08 20:39] LABS: Appearance, Urine Clear (Clear); Bilirubin, Urine Neg (Neg); Blood, Urine Neg (Neg); Color, Urine Yellow (P-Yellow); Glucose Qualitative, Urine Neg (Neg); Ketones, Urine Neg (Neg); Leukocyte Esterase, Urine Neg (Neg); Nitrite, Urine Neg (Neg); Protein, Urine 1+ (Neg); Specific Gravity, Urine 1.015 (1.003-1.022); Urobilinogen, Urine NORM (Normal)
--- NOTE | 2022-04-08 23:40 | NUR ---
NEW ADMIT PT NEW ADMIT FROM ER WITH SIGMOID DIVERTIC WITH ABSCESS FORMATION. PT ARRIVED IN NO DISTRESS, REPORTING DIFFUSE ABD PAIN AND WEAKNESS. VSS. PT IS NPO FOR ANTICIPATION OF SURGERY IN THE AM. PLAN TO MEDICATE PER EMAR.
[2022-04-09 04:47] LABS: SARS-Cov-2 (COVID-19) PCR, MMC NEGATIVE (NEGATIVE)
--- NOTE | 2022-04-09 04:51 | NUR ---
VSS. MEDICATED FOR PAIN WITH FENTYNAL. PT HAS REMAINED NPO SINCE ARRIVING TO THE FLOOR. VOIDING INTO PUREWICK SYSTEM, NO TARRY STOOLS NOTED. TELE READS ATRIAL PACED AT 70. PLAN FOR PT TO REMAIN ON ABX THERAPY AND HAVE SURGERY TODAY. THE PATIENT IS RESTING IN BED, CALL LIGHT IN REACH
[2022-04-09 06:07] LABS: BASOPHILS ABSOLUTE AUTO 0.08 K/mm3 (0.00-0.23); BASOPHILS PERCENT AUTO 0 % (0-2); EOSINOPHILS PERCENT AUTO 0 % (0-6); Hematocrit 30.9 % (33.0-51.0); IMMATURE GRAN ABSOLUTE AUTO 0.87 K/mm3 (0.00-0.10); IMMATURE GRAN PERCENT AUTO 3 % (0-1); LYMPHOCYTES ABSOLUTE AUTO 2.28 K/mm3 (0.84-5.20); LYMPHOCYTES PERCENT AUTO 9 % (21-46); MONOCYTES ABSOLUTE AUTO 1.62 K/mm3 (0.16-1.47); MONOCYTES PERCENT AUTO 6 % (4-13); Mean Corpuscular HGB 29.2 pg (26.0-34.0); Mean Corpuscular HGB Conc 32.4 g/dL (31.5-36.5); Mean Corpuscular Volume 90 fL (80-100); Mean Platelet Volume 11.3 fL (9.1-12.4); NEUTROPHILS ABSOLUTE AUTO 21.65 K/mm3 (1.96-9.15); NEUTROPHILS PERCENT AUTO 82 % (41-73); Platelet Count 322 K/mm3 (150-400); RDW Coefficient Variation 17.4 % (11.7-14.2); RDW Standard Deviation 54.1 fL (35.1-46.3); Red Blood Cell Count 3.42 M/mm3 (3.80-5.20)
[2022-04-09 07:14] LABS: Albumin, Blood 2.1 g/dL (3.4-5.0); Albumin/Globulin Ratio 0.6 (0.8-1.8); Bilirubin, Total 0.3 mg/dL (0.1-1.0); Bun/Creatinine Ratio 21.6 (12.0-20.0); Creatinine, Blood 0.69 mg/dL (0.40-1.00); Globulin, Blood 3.6 g/dL (2.2-4.0); Potassium, Blood 4.3 mmol/L (3.5-5.5); Total Protein, Blood 5.7 g/dL (6.4-8.2)
--- NOTE | 2022-04-09 07:51 | NUR ---
CONFIRMED W/DR MARCUM:NOTIFIED OF CONSULT.
--- NOTE | 2022-04-09 15:26 | NUR ---
PT REPORTS FEELS TOO WEAK TO GET OOB TO USE BSC PUREWICK IN PLACE. DISCUSSED IMPORTANCE OF MOBILIZING WITH PT AND FAMILY TO PREVENT OTHER PROBLEMS (BREAKDOWN, PNEUMONIA, ETC).
--- NOTE | 2022-04-09 17:15 | NUR ---
SUMMARY NO ACUTE CHANGES T/O SHIFT. PT NAUSEATED THIS EVENING/MEDICATED PER ORDERS W/ZOFRAN. MEDICATED T/O SHIFT FOR PAIN PER ORDERS. KPAD TO ABDOMEN FOR COMFORT. PLACED NEW PUREWICK DEVICE THIS AFTERNOON. IV INFUSING W/O DIFFICULTY. FAMILY AT BEDSIDE. CALL LIGHT IN REACH.
[2022-04-10 06:17] LABS: Hematocrit 32.4 % (33.0-51.0); Hemoglobin 9.8 g/dL (11.5-16.0); Mean Corpuscular HGB 27.5 pg (26.0-34.0); Mean Corpuscular HGB Conc 30.2 g/dL (31.5-36.5); Mean Corpuscular Volume 91 fL (80-100); Mean Platelet Volume 11.8 fL (9.1-12.4); Platelet Count 334 K/mm3 (150-400); RDW Coefficient Variation 17.2 % (11.7-14.2); RDW Standard Deviation 55.6 fL (35.1-46.3); Red Blood Cell Count 3.57 M/mm3 (3.80-5.20)
[2022-04-10 06:34] LABS: Bun/Creatinine Ratio 19.7 (12.0-20.0); Calcium, Blood 8.4 mg/dL (8.5-10.1); Creatinine, Blood 0.71 mg/dL (0.40-1.00); Potassium, Blood 3.9 mmol/L (3.5-5.5)
--- NOTE | 2022-04-10 07:28 | NUR ---
SHIFT SUMMARY AOX4. VSS. TELE ATRIAL PACED c BBB HR 70. SPO2 >92% ON 2L O2. REPORTS -01/01 ABD PAIN ALLOVER ABD MEDICATED c 2MG IV DILAUDID & 4MG IV ZOFRAN PER ORDERS. ABD TENDER TO PALPATION. PT BELCHING. NO EMESIS THIS SHIFT. CALL LIGHT IN REACH.
[2022-04-10 07:34] LABS: BAND PERCENT MAN 1 % (0-8); BASOPHILS PERCENT MAN 0 % (0-2); EOSINOPHILS PERCENT MAN 0 % (0-6); LYMPHOCYTES ABSOLUTE MAN 1.07 K/mm3 (0.84-5.20); LYMPHOCYTES PERCENT MAN 4 % (21-46); MONOCYTES ABSOLUTE MAN 1.07 K/mm3 (0.16-1.47); MONOCYTES PERCENT MAN 4 % (4-13); MYELOCYTE ABSOLUTE MAN 0.26 K/mm3 (0.00-0.00); MYELOCYTE PERCENT MAN 1 % (0-0); NEUTROPHILS ABSOLUTE MAN 24.47 K/mm3 (1.96-9.15); SEG NEUTROPHILS PERCENT MAN 90 % (41-73); TOTAL CELLS COUNTED 100
[2022-04-10] MEDS ORDERED: OXYC10TA19 PO (08:34)
--- NOTE | 2022-04-10 10:49 | NUR ---
PER DR MARCMU, HE SPOKE WITH INTERVENTINAL RADIOLOGY REGARDING DRAIN PLACEMENT, MENTIONED IN HIS PREVIOUS NOTE. NO PROVIDER CONSULT NEEDED BY RN.
[2022-04-10 12:20] LABS: Anti-Xa UFH, PHA Monitoring <0.10 IU/mL; International Normalized Ratio 1.17; Prothrombin Time Results 12.2 Sec (9.7-11.5)
--- NOTE | 2022-04-10 12:54 | NUR ---
THIS RN NOTIFIED BY CARLITOS MUÑOZ THAT STATED PICC LINE IS PROPERLY PLACED & IS GOOD TO BE USED.
--- NOTE | 2022-04-10 16:57 | NUR ---
SHIFT SUMMARY NO ACUTE CHANGES THIS SHIFT. PATIENT CONTINUES TO HAVE HIGH AMOUNTS OF PAIN TO ABDOMEN, WELL BACK. STARTED HOME OXYCODONE IN HOPES TO RELEIVE THE "CHRONIC BACK PAIN", ALTHOUGH PATIENT STILL REPORTS 8-10/10 PAIN LEVELS CONSISTENTLY. PATIENT UP TO EDGE OF BED DANGLING AND STANDING A FEW TIMES THIS SHIFT, TOLERATES WELL, MINIMAL ASSISTANCE REQUIRED. TOLERATING SIPS & CHIPS CURRENTLY. PLAN TO BE STRICTLY NPO AT MIDNIGHT FOR CT SCAN AND POSSIBLE DRAIN PLACEMENT TOMORROW AM. CALL LIGHT INR EACH, USES APPROPRIATELY. WILL REPORT TO ONCOMING RN AT 1900.
[2022-04-11 03:30] LABS: BASOPHILS ABSOLUTE AUTO 0.08 K/mm3 (0.00-0.23); BASOPHILS PERCENT AUTO 0 % (0-2); EOSINOPHILS ABSOLUTE AUTO 0.01 K/mm3 (0.00-0.68); EOSINOPHILS PERCENT AUTO 0 % (0-6); Hematocrit 27.9 % (33.0-51.0); Hemoglobin 8.1 g/dL (11.5-16.0); IMMATURE GRAN ABSOLUTE AUTO 1.07 K/mm3 (0.00-0.10); IMMATURE GRAN PERCENT AUTO 4 % (0-1); LYMPHOCYTES ABSOLUTE AUTO 2.46 K/mm3 (0.84-5.20); LYMPHOCYTES PERCENT AUTO 10 % (21-46); MONOCYTES ABSOLUTE AUTO 1.14 K/mm3 (0.16-1.47); MONOCYTES PERCENT AUTO 5 % (4-13); Mean Corpuscular HGB 27.7 pg (26.0-34.0); Mean Platelet Volume 11.7 fL (9.1-12.4); NEUTROPHILS PERCENT AUTO 81 % (41-73); Platelet Count 271 K/mm3 (150-400); RDW Coefficient Variation 17.7 % (11.7-14.2); Red Blood Cell Count 2.92 M/mm3 (3.80-5.20); White Blood Cell Count 25.56 K/mm3 (4.00-11.30)
--- NOTE | 2022-04-11 05:06 | NUR ---
SHIFT SUMMARY NO ACUTE EVENTS THIS SHIFT,PATIENT NPO AFTER MIDNIGHT FOR POSSIBLE DRAIN PLACEMENT IN AM. REPORTS ABD PAIN 12/02 AND MEDICATED PER EMAR. NO FLATUS OR BM THIS SHIFT. DENIES N/V. PATIENT ABLE TO AMBULATE TO [facility] [place] 2 ASSIST GB, FWW. ATTENDS IN PLACE AND REP[OSITIONED Q2 T/O SHIFT. NOTED ANKLE EDEMA AND LOW URINE OUTPUT, BUMEX PRN ADMINISTERED W/ SEVERAL VOIDS SINCE. URINE YELLOW/CLEAR. LUNG SOUNDS DIM IN BASES, BASELINE 2L NC, SATS ABOVE 90%. VSS. FLUIDS INFUSING, HEPARIN MANAGED BY PHARMACY. PATIENT IS CURRENTLY RESTING AWAITING PROCEDURE. CALL LIGHT IN REACH.
[2022-04-11 05:22] LABS: Mean Corpuscular Volume 96 fL (80-100)
[2022-04-11 06:46] LABS: Bun/Creatinine Ratio 23.8 (12.0-20.0); Creatinine, Blood 0.76 mg/dL (0.40-1.00); Magnesium, Blood 1.6 mg/dL (1.6-2.4); Phosphorus, Blood 2.3 mg/dL (2.5-4.9); Potassium, Blood 3.8 mmol/L (3.5-5.5)
--- NOTE | 2022-04-11 17:29 | NUR ---
SHIFT SUMMARY PATIENT HAD CT SCAN TODAY, PLAN FOR DRAIN PLACEMENT TOMORROW. HEPARIN DRIP RUNNING, STOP AT 0001 ON 04/12. PATIENT HAS REMAINED NPO PER MD ORDERS. PATIENT REPORTS HIGH PAIN AT 10/10 FEQUENTLY, MEDICATED PER EMAR, HOWEVER, PATIENT FALLS BACK ASLEEP EASILY AND WILL NOT APPEAR TO BE IN PAIN WHILE RESTING IN BED. UP TO BSC & CHAIR ONCE THIS SHIFT, PATIENT TOELRATED FAIRLY. INCONTINENT OF URINE, ATTENDS IN PLACE AND SOAKED FREQUENTLY. PUREWICK PLACED D/T CAUSING INCREASED PAIN WITH FREQUENT TURNING FOR ATTENDS CHANGES. USES CALL LIGHT APPROPRIATELY, IN REACH. WILL REPORT TO ONCOMING RN AT 1900.
[2022-04-12 03:54] LABS: Magnesium, Blood 1.7 mg/dL (1.6-2.4)
[2022-04-12 04:08] LABS: Anion Gap 4 mmol/L (6-16); Blood Urea Nitrogen 23 mg/dL (8-24); Bun/Creatinine Ratio 32.8 (12.0-20.0); CO2, Blood 35 mmol/L (21-32); Chloride, Blood 99 mmol/L (98-108); Glomerular Filtration Rate 85 (60-); Glucose, Blood 301 mg/dL (70-99); Phosphorus, Blood 1.9 mg/dL (2.5-4.9); Potassium, Blood 3.8 mmol/L (3.5-5.5); Sodium, Blood 138 mmol/L (136-145); Triglycerides 52 mg/dL (30-160)
--- NOTE | 2022-04-12 04:57 | NUR ---
SHIFT SUMMARY NO ACUTE EVENTS THIS SHIFT, PATIENT NPO, FLUIDS AND CPN INFUSING, HEPARIN STOPPED AT 0001 PER MD MARCUM ORDERS. BETTS PLACED THIS SHIFT PER ORDERS, PATNENT AND DRAINING YELLOW CLEAR URINE. PATIENT REPOSITIONS T/O SHIFT AND IS MEDICATED FOR PAIN PER EMAR. DENIES N/V, NO FLATUS OR BM THIS SHIFT. BOWEL SOUNDS HYPOACTIVE. TENDERNESS TO THE LLQ. PATIENT IS ON TELE AND IS ATRIAL PACED @ 70 PER WELDER SETTER RESISTANCE MACHINE. WELDER SETTER RESISTANCE MACHINE CALLED AT [address] ELEVATION THAT RESOLVED AFTER A FEW SECONDS. WELDER SETTER RESISTANCE MACHINE NOTED SHEHAD PREVIOUS ELEVATION ON 04/11/22 @ 2008, AND 2023, THAT RESOLVED. NOTIFIED DR. BOYER, NO NEW ORDRERS. ALL OTHER VITALS STABLE, REPORTS NO CHEST PAIN, JUST ABD PAIN IN LLQ. CALL LIGHT IS IN REACH, WILL CTM AND TREAT PER ORDERS.
--- NOTE | 2022-04-12 11:20 | NUR ---
PT RETURNED FROM RADIOLOGY WITH NEW DRAIN PLACED IN R LOWER ABD. SMALL AMT THICK GREEN DRAINAGE NOTED IN DRAIN BAG THAT IS VERY FOUL SMELLING. ODOR WAS INITIALLY THOUGHT TO BE FROM A BM BUT WAS CONFIRMED TO BE THE DRAIN AFTER CHECKING THE PATIENTS BRIEFS. PT REPOSITIONED BACK IN HER BED.
--- NOTE | 2022-04-12 19:44 | NUR ---
SHIFT SUMMARY S/P DRAIN PLACEMENT FOR LOW ABD ABSCESS, A/OX4, VSS, DRAIN WAS PLACED EARLIER THIS SHIFT BY RADIOLOGY, PURULENT FOUL SMELLING DISCHARGE IN DRAIN BAG, DRAINAGE IS A GREENISH/QUINTERO COLOR THOUGH AT SHIFT CHANGE WHEN THE DRAIN WE RECOMPRESSED THERE WAS SOME STREAKING OF BLOOD IN THE BAG AND MORE IN THE LINE. PAIN APPEARED TO BE IMPROVED SLIGHLTY SINCE THE DRAIN WAS PLACED WITH THE PT REQUESING IT A LITTLE FURTHER APART THAN PREVIOUSLY IN THE SHIFT. DAUGHTER AT BEDSIDE WHO WAS ASSISTING WITH REPOSITIONING HER PILLOWS. NO ACUTE EVENTS THIS SHIFT, CALL LIGHT IN REACH, REPORT GIVEN TO NOC RN.
--- NOTE | 2022-04-13 04:19 | NUR ---
SKIDWAY WORKER SUMMARY NO ACUTE CHANGES THIS SHIFT. PT AAOX4 AND PLEASANT. HELPS ASSIST WITH REPOSITIONING IN BED. ABD PAIN FAIRLY WELL MANAGED WITH 2MG IV DIALAUDID Q4H. LLQ DRAIN WITH GREEN FLUID IN BAG BUT FLUID IN DRAINAGE TUBE NOW SEROSANGUINOUS. CONTINUES ON TPN AND HEPARIN DRIP. HEPARIN DRIP RATE INCREASED X1 BY PHARMACY TO 19 U/KG/HR. VSS, WILL CONTINUE TO MONITOR.
[2022-04-13 04:47] LABS: BASOPHILS ABSOLUTE AUTO 0.05 K/mm3 (0.00-0.23); BASOPHILS PERCENT AUTO 0 % (0-2); EOSINOPHILS PERCENT AUTO 0 % (0-6); Hematocrit 30.4 % (33.0-51.0); Hemoglobin 9.2 g/dL (11.5-16.0); IMMATURE GRAN ABSOLUTE AUTO 0.84 K/mm3 (0.00-0.10); IMMATURE GRAN PERCENT AUTO 4 % (0-1); LYMPHOCYTES ABSOLUTE AUTO 1.68 K/mm3 (0.84-5.20); LYMPHOCYTES PERCENT AUTO 7 % (21-46); MONOCYTES ABSOLUTE AUTO 1.19 K/mm3 (0.16-1.47); MONOCYTES PERCENT AUTO 5 % (4-13); Mean Corpuscular HGB 26.5 pg (26.0-34.0); Mean Corpuscular HGB Conc 30.3 g/dL (31.5-36.5); Mean Platelet Volume 11.2 fL (9.1-12.4); NEUTROPHILS ABSOLUTE AUTO 19.43 K/mm3 (1.96-9.15); NEUTROPHILS PERCENT AUTO 84 % (41-73); Platelet Count 324 K/mm3 (150-400); RDW Coefficient Variation 16.9 % (11.7-14.2); Red Blood Cell Count 3.47 M/mm3 (3.80-5.20); White Blood Cell Count 23.19 K/mm3 (4.00-11.30)
[2022-04-13 05:15] LABS: Magnesium, Blood 1.8 mg/dL (1.6-2.4)
[2022-04-13 05:18] LABS: Albumin, Blood 1.6 g/dL (3.4-5.0); Albumin/Globulin Ratio 0.4 (0.8-1.8); Bilirubin, Total 0.2 mg/dL (0.1-1.0); Bun/Creatinine Ratio 42.6 (12.0-20.0); Calcium, Blood 7.8 mg/dL (8.5-10.1); Creatinine, Blood 0.61 mg/dL (0.40-1.00); Globulin, Blood 3.6 g/dL (2.2-4.0); Phosphorus, Blood 3.4 mg/dL (2.5-4.9); Potassium, Blood 3.8 mmol/L (3.5-5.5); Total Protein, Blood 5.2 g/dL (6.4-8.2)
[2022-04-13 05:43] LABS: Mean Corpuscular Volume 88 fL (80-100)
--- NOTE | 2022-04-13 19:32 | NUR ---
SHIFT SUMMARY S/P DRAIN PLACEMENT, DRAIN CONTINUES TO PUT OUT SMALL AMOUNTS OF FOUL PURULENT DRAINAGE, PAIN CONTINUES TO REQUIRE IV MEDICATIONS, PT REPORTS THAT THE PO MEDS DO NOTHING FOR PAIN. PT WAS ABLE TO GET UP TO THE CHAIR TODAY WITH MINIMAL ASSISTANCE GETTING UP AND ONLY NEEDING HELP WITH HER LEGS TO GET BACK INTO BED. CPN CONTINUES TO INFUSE, DIET ADVANCED TO CLEARS AND SHE IS TOLERATING THAT WELL. NO ACUTE EVENTS THIS SHIFT, CALL LIGHT IN REACH, REPORT GIVEN TO NOC RN
[2022-04-14 05:08] LABS: Bun/Creatinine Ratio 46.3 (12.0-20.0); Calcium, Blood 7.7 mg/dL (8.5-10.1); Creatinine, Blood 0.5 mg/dL (0.40-1.00); Magnesium, Blood 1.8 mg/dL (1.6-2.4); Phosphorus, Blood 2.3 mg/dL (2.5-4.9); Potassium, Blood 3.5 mmol/L (3.5-5.5)
--- NOTE | 2022-04-14 05:50 | NUR ---
SHIFT SUMMARY: PT REMAINED PAINFUL T/O THE NIGHT. MANAGED WITH ORDERS PER EMAR. ENCOURAGED NONPHARMACOLOGICAL METHODS WITH PT. TOLERATING CLEAR LIQUID DIET. REPORTS PASSING GAS. VSS. URESIL DRAINAGE REMAINS SANCHEZ WITH OCCASSIONAL SEROSANG/MUCUS PRESENT WITHIN TUBE/BAG. STAT LOCK REMAINS IN PLACE FOR DRAIN WITH TRANSPARENT DRESSING. PT RESTING AT THIS TIME WITH CALL LIGHT IN REACH. WILL GIVE REPORT TO DAY TIME RN.
[2022-04-14 16:29] LABS: Hematocrit 32.8 % (33.0-51.0); Mean Platelet Volume 11.7 fL (9.1-12.4); Platelet Count 274 K/mm3 (150-400)
--- NOTE | 2022-04-14 19:34 | NUR ---
PT ALERT NO S/S OF ACUTE DISRESS. SAFETY MEASURES IN PLACE REPORT GIVEN TO ON COMING NURSE.
--- NOTE | 2022-04-15 04:56 | NUR ---
SHIFT SUMMARY PT HAS RESTED OFF AND ON T/O THE SHIFT. PT CONTINUES TO HAVE SEVERE ABD PAIN THAT SHE RATES 10/10. PAIN CONTROL HAS BEEN DIFFICULT FOR PT THIS SHIFT. DILAUDID Q4HR WITH OXYCODONE WAS NOT ENOUGH TO MANAGE PAIN. PROVIDER NOTIFIED AND FREQUENCY OF IV DILAUDID CHANGED FROM Q4HR TO Q2HR FOR BETTER PAIN CONTROL. PT REPOSITONED PRN FOR ADDITIONAL COMFORT. HEATING PAD IN PLACE. PT MEDICATED FOR NAUSEA X1. PT HAS BEEN ABLE TO TOLERATE PO INTAKE WITHOUT VOMITTING. PT REPORTS THAT SHE IS PASSING GAS, BOWEL TONES ARE HYPERACTIVE. URESIL DRAIN WITH VERY MINIMAL OUTPUT. HEPARIN GTT, PPN INFUSING. IV ANTIBIOTICS PER ORDERS. BETTS CATHETER IN PLACE WITH ADEQUATE OUTPUT THIS SHIFT. VITALS STABLE, BED IN LOWEST POSITON, CALL LIGHT WITHIN REACH.
[2022-04-15 06:31] LABS: BASOPHILS ABSOLUTE AUTO 0.04 K/mm3 (0.00-0.23); BASOPHILS PERCENT AUTO 0 % (0-2); EOSINOPHILS ABSOLUTE AUTO 0.06 K/mm3 (0.00-0.68); EOSINOPHILS PERCENT AUTO 0 % (0-6); Hematocrit 32.8 % (33.0-51.0); IMMATURE GRAN ABSOLUTE AUTO 0.39 K/mm3 (0.00-0.10); IMMATURE GRAN PERCENT AUTO 2 % (0-1); LYMPHOCYTES ABSOLUTE AUTO 2.57 K/mm3 (0.84-5.20); LYMPHOCYTES PERCENT AUTO 16 % (21-46); MONOCYTES ABSOLUTE AUTO 1.31 K/mm3 (0.16-1.47); MONOCYTES PERCENT AUTO 8 % (4-13); Mean Corpuscular HGB 26.9 pg (26.0-34.0); Mean Corpuscular HGB Conc 30.5 g/dL (31.5-36.5); Mean Corpuscular Volume 88 fL (80-100); Mean Platelet Volume 11.7 fL (9.1-12.4); NEUTROPHILS ABSOLUTE AUTO 11.71 K/mm3 (1.96-9.15); NEUTROPHILS PERCENT AUTO 73 % (41-73); Platelet Count 244 K/mm3 (150-400); RDW Coefficient Variation 16.7 % (11.7-14.2); RDW Standard Deviation 53.4 fL (35.1-46.3); Red Blood Cell Count 3.72 M/mm3 (3.80-5.20); White Blood Cell Count 16.08 K/mm3 (4.00-11.30)
--- NOTE | 2022-04-15 18:33 | NUR ---
SHIFT SUMMARY PT CONTINUES TO HAVE INTENSE/CONSTANT ABD PAIN. PT IS FREQUENTLY REPOSITIONED AND TREATED FOR PAIN PER EMR. URESIL DRAIN IS PUTTING OUT A SMALL AMOUNT OF BROWN DRAINAGE. VSS. CT SCAN TO BE DONE TOMORROW.
[2022-04-16 05:39] LABS: BASOPHILS ABSOLUTE AUTO 0.05 K/mm3 (0.00-0.23); BASOPHILS PERCENT AUTO 0 % (0-2); EOSINOPHILS ABSOLUTE AUTO 0.13 K/mm3 (0.00-0.68); EOSINOPHILS PERCENT AUTO 1 % (0-6); Hematocrit 31.4 % (33.0-51.0); Hemoglobin 9.7 g/dL (11.5-16.0); IMMATURE GRAN ABSOLUTE AUTO 0.37 K/mm3 (0.00-0.10); IMMATURE GRAN PERCENT AUTO 2 % (0-1); LYMPHOCYTES ABSOLUTE AUTO 3.05 K/mm3 (0.84-5.20); LYMPHOCYTES PERCENT AUTO 18 % (21-46); MONOCYTES ABSOLUTE AUTO 1.27 K/mm3 (0.16-1.47); MONOCYTES PERCENT AUTO 8 % (4-13); Mean Corpuscular HGB 27.2 pg (26.0-34.0); Mean Corpuscular HGB Conc 30.9 g/dL (31.5-36.5); Mean Corpuscular Volume 88 fL (80-100); Mean Platelet Volume 11.2 fL (9.1-12.4); NEUTROPHILS ABSOLUTE AUTO 11.93 K/mm3 (1.96-9.15); NEUTROPHILS PERCENT AUTO 71 % (41-73); Platelet Count 240 K/mm3 (150-400); RDW Coefficient Variation 16.6 % (11.7-14.2); RDW Standard Deviation 53.1 fL (35.1-46.3); Red Blood Cell Count 3.57 M/mm3 (3.80-5.20)
--- NOTE | 2022-04-16 07:43 | NUR ---
SHIFT SUMMARY PT ALERT AND ORIENTED. PAINFUL T/O THE NIGHT, MEDICATED PER EMAR. TOLERATING SMALL SIPS OF WATER WITH MEDICATIONS. BETTS IN PLACE AND DRAINING TO GRAVITY. HEPARIN/CPN INFUSING. CALL LIGHT WITHIN REACH.
--- NOTE | 2022-04-16 18:28 | NUR ---
SHIFT SUMMARY PT HAS REMAINED VERY PAINFUL T/O SHIFT. MEDICATION PER EMAR. SHE REPORTS SOME IMPROVEMENT THIS EVENING IN OVERALL PAIN BUT ENDORSES IT SEVERE. VERY MINIMAL BROWN DRAINAGE IN URACIL. ABDOMEN REMAINS SOFT BUT TENDER TO TOUCH. NO NAUSEA TOLERATING PO WELL. CT SCAN DONE TODAY, SHOWED NO CHANGES. PLAN IS FOR DR. MARCUM TO ADDRESS IN THE MORNING. PT AGREEABLE TO PLAN
[2022-04-17 03:34] LABS: BASOPHILS ABSOLUTE AUTO 0.02 K/mm3 (0.00-0.23); BASOPHILS PERCENT AUTO 0 % (0-2); EOSINOPHILS ABSOLUTE AUTO 0.01 K/mm3 (0.00-0.68); EOSINOPHILS PERCENT AUTO 0 % (0-6); Hematocrit 32.1 % (33.0-51.0); Hemoglobin 9.8 g/dL (11.5-16.0); IMMATURE GRAN ABSOLUTE AUTO 0.26 K/mm3 (0.00-0.10); IMMATURE GRAN PERCENT AUTO 1 % (0-1); LYMPHOCYTES ABSOLUTE AUTO 1.47 K/mm3 (0.84-5.20); LYMPHOCYTES PERCENT AUTO 8 % (21-46); MONOCYTES PERCENT AUTO 4 % (4-13); Mean Corpuscular HGB 26.8 pg (26.0-34.0); Mean Corpuscular HGB Conc 30.5 g/dL (31.5-36.5); Mean Corpuscular Volume 88 fL (80-100); NEUTROPHILS ABSOLUTE AUTO 16.14 K/mm3 (1.96-9.15); NEUTROPHILS PERCENT AUTO 87 % (41-73); Platelet Count 258 K/mm3 (150-400); RDW Coefficient Variation 16.6 % (11.7-14.2); RDW Standard Deviation 53.1 fL (35.1-46.3); Red Blood Cell Count 3.66 M/mm3 (3.80-5.20)
[2022-04-17 04:02] LABS: Magnesium, Blood 2.1 mg/dL (1.6-2.4)
[2022-04-17 05:25] LABS: Blood Urea Nitrogen 19 mg/dL (8-24); Bun/Creatinine Ratio 31.7 (12.0-20.0); Calcium, Blood 8.4 mg/dL (8.5-10.1); Chloride, Blood 87 mmol/L (98-108); Glomerular Filtration Rate 88 (60-); Glucose, Blood 178 mg/dL (70-99); Potassium, Blood 4.6 mmol/L (3.5-5.5); Sodium, Blood 133 mmol/L (136-145)
[2022-04-17 05:26] LABS: Anion Gap Unable to Calculate mmol/L (6-16)
[2022-04-17 05:27] LABS: CO2, Blood >45 mmol/L (21-32)
--- NOTE | 2022-04-17 07:26 | NUR ---
SHIFT SUMMARY PT A&OX4. NO ACUTE CHANGES. PT HAS REMAINED PAINFUL T/O SHIFT, MEDICATING PER EMAR. TOLERATING PO INTAKE. BETTS IN PLACE AND DRAINING TO GRAVITY. MINIMAL OUTPUT IN URACIL. CPN/HEPARIN INFUSING. CALL LIGHT WITHIN REACH.
--- NOTE | 2022-04-17 17:25 | NUR ---
SHIFT SUMMARY NO ACUTE CHANGES THIS SHIFT. PAIN MANAGEMENT REMAINA A CHALLENGE, MEDICATED PER EMAR. PATIENT DECLINED TO SIT UP TO CHAIR TODAY, APPEARED TO BE LESS MOTIVATED AND CHEARFUL AFTER TALK OF SURGERY NEEDING TO HAPPEN, MOST LIKELY SATURDAY OR SATURDAY, PER DR MARCUM. TOELRATING CLEAR LIQUIDS, DENIES N/V. BETTS IN PLACE. CALL LIGHT IN REACH. WILL REPORT TO ONCOMING RN AT 1900.
--- NOTE | 2022-04-18 06:03 | NUR ---
Assumed care at 1945, patient sitting in chair and transferred to bed with 2 nurse assist. PRN pain meds given for abdominal and chronic back pain and PRN nausea med given as well. Patient slept well overnight. Patient turned Q2. Game[employer] WNL. 0600 Patient sleeping.
--- NOTE | 2022-04-18 14:50 | NUR ---
SHIFT SUMMARY: NO SIGNIFICANT CHANGES THROUGHOUT SHIFT. PATIENT REPORTS RATING HER PAIN A 10/10. FOR PAIN MANAGEMENT SHE HAS BEEN GIVEN IV DILAUDID AND PO OXY. HER URICEL DRAIN ON HER LLQ HAS A SMALL AMOUNT OF BROWN OUTPUT WITH ACCORDIAN COMPRESSED. BETTS IS DRAINING PER GRAVITY WITH YELLOW URINE OUTPUT. PICC LINE IS IN HER LIANET INFUSING TPN, HEPARIN, AND ABX. SHE IS A SBA TO THE CHAIR. SHE IS TOLERATING SMALL AMOUNTS OF PO INTAKE OF CLEAR LIQUIDS. DAUGHTER IS AT BEDSIDE. CALL LIGHT WITHIN REACH. THE PLAN IS FOR HER TO HAVE SURGERY TOMORROW WITH DR. MARCUM. SHE IS TO BE NPO AT MIDNIGHT. HER IV HEPARIN WILL ALSO BE D/C'D AT MIDNIGHT TONIGHT.
[2022-04-19 04:33] LABS: Hematocrit 30.2 % (33.0-51.0); Hemoglobin 9.1 g/dL (11.5-16.0); Mean Corpuscular HGB 27.1 pg (26.0-34.0); Mean Corpuscular HGB Conc 30.1 g/dL (31.5-36.5); Mean Corpuscular Volume 90 fL (80-100); Mean Platelet Volume 11.2 fL (9.1-12.4); Platelet Count 253 K/mm3 (150-400); RDW Coefficient Variation 17.2 % (11.7-14.2); RDW Standard Deviation 55.4 fL (35.1-46.3); Red Blood Cell Count 3.36 M/mm3 (3.80-5.20)
[2022-04-19 04:58] LABS: Albumin, Blood 1.7 g/dL (3.4-5.0); Blood Urea Nitrogen 19 mg/dL (8-24); Bun/Creatinine Ratio 32.3 (12.0-20.0); Calcium, Blood 8.3 mg/dL (8.5-10.1); Chloride, Blood 87 mmol/L (98-108); Creatinine, Blood 0.59 mg/dL (0.40-1.00); Glomerular Filtration Rate 89 (60-); Glucose, Blood 112 mg/dL (70-99); Phosphorus, Blood 3.1 mg/dL (2.5-4.9); Potassium, Blood 4.6 mmol/L (3.5-5.5); Sodium, Blood 135 mmol/L (136-145); Triglycerides 96 mg/dL (30-160)
[2022-04-19 05:08] LABS: Anion Gap Unable to Calculate mmol/L (6-16); CO2, Blood >45 mmol/L (21-32)
--- NOTE | 2022-04-19 05:43 | NUR ---
POD7 FOR CT GUIDED DRAIN PLACEMENT IN LLQ. DRESSING C/D/I, DRAINAGE NOTED TO BE FOUL, PURULENT, DARK BROWN/RED DRAINAGE. 20 MLS. VSS. PT SLEPT ON AND OFF T/O THE NIGHT, DID NOT GET OOB. BETTS IN PLACE, DRAINING TO GRAVITY, YELLOW URINE. SURGICAL WASHDOWN COMPLETE. PT HAS BEEN NPO SINCE MIDNIGHT. MEDICATED MULTIPLE TIMES FOR PAIN WITH DILAUDED, PT REFUSD ORAL PAIN MEDICATION BEFORE MIDNIGHT. DR SANTA NOTIFIED OF PTS CRITICAL LAB OF CO2 >45, NO NEW ORDERS GIVEN AT THAT TIME. HEPARIN DRIP WAS TURNED OFF AT MIDNIGHT PER NURSE NOTIFY ORDER. PATIENT EDUCATED ON GROUPING CARE TOGETHER TO MINIMIZE PATIENTS NEED TO CALL FOR ASSISTANCE FREQUENTLY. PATIENT APPEARED TO BE UNRECEPTIVE TO EDUCATION. PLAN FOR PT TO GO TO OR TODAY FOR ADAN PROCEEDURE. THE PATIENT IS CURRENTLY RESTING IN BED, IN NO DISTRESS, CALL LIGHT IN REACH.
--- NOTE | 2022-04-19 14:19 | NUR ---
ADMINISTERED 25 MG IV BENADRYL PER ORDERS FOR DRAIN PLACEMENT PT NOW VERY SLEEPY. PULSE OX ON. FAMILY AT BEDSIDE. BEDSIDE REPORT AND CARE TURNED OVER TO GILMER Davila RN.
--- NOTE | 2022-04-19 20:02 | NUR ---
SHIFT SUMMARY ASSUMED CARE OF PATIENT AT 1400. PLAN WAS FOR PATIENT TO GO FOR RAD PLACEMENT OF DRAIN. ORDER WAS NOT IN CHART. PROCEDURE CANCELLED UNTIL TOMORROW 04/20/22. COBRA ORDERS PLACED AT [address] SHARMA. PATIENT DROWSY IN BED. MEDICATED FOR PAIN PER EMAR. PROVIDED WITH CLEAR LIQUIDS FOR DINNER. WILL BE NPO AT MIDNIGHT. HEPARIN TO BE HELD AT THIS TIME UNTIL AFTER PROCEDURE TOMORROW. [facility] AT [place] STATED NO BED UNTIL TOMORROW 04/20/22. ROUTINE TPN AND ABX INFUSING THROUGH PICC. BETTS PATENT AND DRAINING. NEEDS SOME ASSISTANCE TO REPOSITION IN THE BED. DAUGHTERS PRESENT AT BEDSIDE THROUGHOUT DAY. REPORT GIVEN TO SUPERVISING FILM OR VIDEOTAPE EDITOR RN.
--- NOTE | 2022-04-20 04:08 | NUR ---
SHIFT SUMMARY NO ACUTE EVENTS THIS SHIFT. PATIENT HAS BEEN NPO SINCE 0000 FOR POSSIBLE DRAIN REPLACEMENT IN AM. THERE IS COBRA TRANSFER ORDERS IN PLACE. HEPARIN HAS BEEN OFF PER ORDERS. PATIENT MEDICATED T/O SHIFT FOR PAIN, 10MG OXY 1-2MG IV DILAUDED PER EMAR. PATIENT RATES PAIN 10/10. PATIENT IS PASSING GAS AND HAD ONE BM THIS SHIFT. BETTS DRAINING TO GRAVITY, YELLOW URINE. URACIL DRAIN IS SECURED IN PLACE AND IS NOT HAVING DRAINAGE OUTPUT. PATIENT REPOSITIONS Q2 AND REPORTS "SEVERE PAIN ALL OVER". PICC LINE IS INFUSING TPN, ABX PER ORDERS. VSS, BED ALARM FOR SAFETY AND CALL LIGHT IN REACH.
[2022-04-20 08:50] LABS: Hematocrit 30.5 % (33.0-51.0); Hemoglobin 9.4 g/dL (11.5-16.0); Mean Corpuscular HGB 27.6 pg (26.0-34.0); Mean Corpuscular HGB Conc 30.8 g/dL (31.5-36.5); Mean Corpuscular Volume 89 fL (80-100); Mean Platelet Volume 11.9 fL (9.1-12.4); Platelet Count 253 K/mm3 (150-400); RDW Coefficient Variation 17.4 % (11.7-14.2); Red Blood Cell Count 3.41 M/mm3 (3.80-5.20); White Blood Cell Count 11.21 K/mm3 (4.00-11.30)
[2022-04-20 09:09] LABS: Albumin, Blood 1.7 g/dL (3.4-5.0); Blood Urea Nitrogen 15 mg/dL (8-24); Bun/Creatinine Ratio 24.8 (12.0-20.0); Calcium, Blood 8.5 mg/dL (8.5-10.1); Chloride, Blood 88 mmol/L (98-108); Creatinine, Blood 0.61 mg/dL (0.40-1.00); Glomerular Filtration Rate 88 (60-); Glucose, Blood 123 mg/dL (70-99); Sodium, Blood 134 mmol/L (136-145)
[2022-04-20 09:10] LABS: Anion Gap Unable to Calculate mmol/L (6-16)
[2022-04-20 09:11] LABS: CO2, Blood >45 mmol/L (21-32)
--- NOTE | 2022-04-20 10:10 | NUR ---
PT TO IMAGING.
--- NOTE | 2022-04-20 11:53 | NUR ---
PROVIDED ICE CHIPS INSTRUCTED PT AND DAUGHTER ON KEEPING PT IN RECLINED POSITION TO PROTECT PLACEMENT OF DRAIN. VERBALIZED UNDERSTANDING.
--- NOTE | 2022-04-20 13:36 | NUR ---
CHECKED IN WITH [facility] CHANGE MANAGEMENT LEAD; NO BED AVAILABLE AT THIS TIME.
--- NOTE | 2022-04-20 17:21 | NUR ---
SUMMARY PT HAD CT GUIDED DRAIN PLACED THIS AM. DRAINING SMALL AMOUNT THICK PRUETT PURULENT DRAINAGE. PER ORDERS, PT HAS ABDOMINAL BINDER IN PLACE AND IS RECLINED TO PROTECT PLACEMENT OF DRAIN. CONTINUES TO HAVE SIGNIFICANT PAIN TO ABD AND, AT TIMES, BACK. MEDICATED T/O DAY PER ORDERS FOR PAIN. AWAITING BED AVAILABILITY TO TRANSFER TO [facility].
--- NOTE | 2022-04-21 04:36 | NUR ---
SHIFT SUMMARY POD1 FOR DRAIN REPLACEMENT. DRAIN IS PUTTING OUT SMALL AMOUNT THICK PRUETT LIQUID. ABD BINDER ON PER ORDER HOB MAINTAINED AT 25 DEGREES. PATIENT PAIN MANAGED WITH OXY AND DILAUDED THIS SHIFT PER EMAR. TOLERATING SIPS OF CL, AND HAVING LOOSE STOOLS THIS SHIFT. HEPARIN RESTARTED AT 2000 PER ORDERS. TPN INFUSING, AND ABX PER EMAR. ELIJAH OHARA CALLED TO UPDATE US ON BED STATUS AT 0100, STILL NO BED AVAILABLE HOWEVER PATIENT IS FIRST ON THEIR WAIT LIST. MAYDA ENCOURAGED US TO REACH OUT TO OTHER POSSIBLE FACILITIES TO SEE IF BED AVAVILABILIY WAS BETTER. PATIENT VSS, CALLS APPROPRIATELY. WILL REPORT TO DAY RN.
[2022-04-21 09:40] LABS: Hematocrit 28.9 % (33.0-51.0); Hemoglobin 8.8 g/dL (11.5-16.0); Mean Platelet Volume 11.6 fL (9.1-12.4); Platelet Count 266 K/mm3 (150-400)
[2022-04-22 04:19] LABS: Hematocrit 28.6 % (33.0-51.0); Hemoglobin 8.7 g/dL (11.5-16.0); Mean Corpuscular HGB 26.9 pg (26.0-34.0); Mean Corpuscular HGB Conc 30.4 g/dL (31.5-36.5); Mean Corpuscular Volume 88 fL (80-100); Mean Platelet Volume 11.1 fL (9.1-12.4); Platelet Count 252 K/mm3 (150-400); RDW Coefficient Variation 17.6 % (11.7-14.2); RDW Standard Deviation 55.8 fL (35.1-46.3); Red Blood Cell Count 3.24 M/mm3 (3.80-5.20); White Blood Cell Count 9.81 K/mm3 (4.00-11.30)
--- NOTE | 2022-04-22 04:29 | NUR ---
POD2 FOR NEW URACEL DRAIN, DRAINAGE NOTED TO BE PURULENT. DRESSING REMAINS C/D/I. VSS. PT SLEPT ON AND OFF T/O THE NIGHT. MEDICATED FOR PAIN WITH PRN'S. BETTS WAS NOTED TO BE LEAKING, BALLOON DRAIN AND REINFLATED. PT HAD AN INCONTINENT STOOL, BROWN AND VERY SOFT. PT REMAINED ON BEDREST T/O THE NIGHT WITH HOB AT 25 DEGREES PER ORDER. TOLLERATED PO INTAKE W/O N/V. PLAN FOR PT TO CONTINUE ABX THERAPY AND AWAIT COBRA TRANSFER. THE PATIENT IS CURRENTLY SLEEPING, IN NO DISTRESS, CALL LIGHT IN REACH
[2022-04-22 04:39] LABS: Albumin, Blood 1.6 g/dL (3.4-5.0); Anion Gap 1 mmol/L (6-16); Blood Urea Nitrogen 12 mg/dL (8-24); Bun/Creatinine Ratio 21.1 (12.0-20.0); CO2, Blood 39 mmol/L (21-32); Chloride, Blood 94 mmol/L (98-108); Creatinine, Blood 0.57 mg/dL (0.40-1.00); Glomerular Filtration Rate 90 (60-); Glucose, Blood 96 mg/dL (70-99); Phosphorus, Blood 3.1 mg/dL (2.5-4.9); Potassium, Blood 4.7 mmol/L (3.5-5.5); Sodium, Blood 134 mmol/L (136-145)
--- NOTE | 2022-04-22 10:30 | NUR ---
THIS RN SPOKE WITH DR SHARMA REGARDING PAIN MANAGEMENT, REQUESTED OTHER OPTIONS/SUGGESTIONS IN ORDER TO MANAGE PAIN. VERBALIZED THOUGHTS ON CURRENT PAIN MEDICATION ORDERS NOT BEING VERY EFFECTIVE FOR PATIENT BASED ON PATIENTS PAIN RATINGS, AMOUNTS AND DOSES GIVEN, LOOKING BACK AT THE LAST FEW DAYS. MD RELUCTANT TO CHANGE MEDICATION ORDERS, DID NOT FEEL THAT CHEESE BLENDER OR OTHER MEDICATIONS WOULD BE BENEFICIAL. THIS RN VOICED SUGGESTION THAT A LOWER CHEESE BLENDER DOSE THAT WOULD BE MORE FREQUENT ADMINISTARTION, IN THE PATIENTS CONTROL, MAY BENEFIT THE PATIENT MENTALLY BY HAVING PLACEBO EFFECT IN ORDER TO BETTER MANAGE PATIENTS PAIN. NO NEW ORDERS RECEIVED OR ENTERED. WILL CONTINUE CURRENT MED REGIMEN SEEN IN EMAR.
--- NOTE | 2022-04-22 17:00 | NUR ---
SHIFT SUMMARY NO ACUTE CHANGES THIS SHIFT. URESIL DRAIN REMAINS IN PLACE, SCANT AMOUNT OF DRAINAGE THIS SHIFT. PATIENT HAS REMAINED AT 25 DEGREES OR BELOW, REPOSITIONED PATIENT ALLOWS. TOLERATING CLEAR LIQUID DIET. BETTS REMIANS IN [place], DRAINING CLEAR YELLOW URINE. PAIN LEVELS REMIAN HIGH, MEDICATED PER EMAR. PATIENT MORE LETHARGIC THIS AFTERNOON, AWAKES APPROPRITAELY TO VERBAL STIMULI, HOWEVER, QUICKER TO FALL ASLEEP AND DOZES OFF SURING CONVERSATION. LESS PAIN MEDICATION GIVEN, REFLECTED IN EMAR. O2 SATS MAINTAINING >92% ON 3L O2. FAMILY AT BEDSIDE ON & OFF THIS SHIFT. CALL LIGHT IN REACH. WILL REPORT TO ONCOMING RN AT 1900.
[2022-04-23 05:04] LABS: Hematocrit 25.6 % (33.0-51.0); Hemoglobin 7.9 g/dL (11.5-16.0); Mean Platelet Volume 11.8 fL (9.1-12.4); Platelet Count 240 K/mm3 (150-400)
--- NOTE | 2022-04-23 05:16 | NUR ---
SHIFT SUMMARY AOX3, SLOW TO RESPOND & PECHANGA BUT ANSWERS APPROPRIATE. VSS. REPORTS CONSTANT 8/10 PAIN T/O ABD & BACK MEDICATED c 1MG IV DILAUDID 2X FOR BREAKTHROUGH PAIN & WITHIN 1 HR PT REPORTING INCREASED PAIN AGAIN, HOWEVER MEDICATED c 10MG OXYCODONE 2X & PT HAD ROUGHLY 3-4 HRS PAIN RELIEF AFTER PO MEDS. REPORTED NAUSEA 1X, ZOFRAN GIVEN & NO EMESIS OR FURTHER NAUSEA REPORTED. LLQ ABD DRAIN IN PLACE c SECUREMENT DEVICE & TEGADERM, NOTED SCANT AMOUNT RED/BLOOD UNDER TEGADERM. REPOSITIONED DRAIN CLOSER TO PT SO LINE WOULDNT BE TAUGHT & REPOSITIONED ABD BINDER TO KEEP DRAIN IN PLACE. URESIL DRAIN c 20ML CLOUDY PINK/RED DRAINAGE. BETTS PATENT & DRAINING CLEAR YELLOW URINE. HEP DRIP RUNNING 34ML/HR. TPN RUNNING 94ML/HR. AWAITING TRANSFER TO [facility]. CALL LIGHT IN REACH, PT ABLE TO MAKE NEEDS KNOWN.
--- NOTE | 2022-04-23 08:21 | NUR ---
DR MARCUM IN TO SEE PT.
--- NOTE | 2022-04-23 14:16 | NUR ---
[facility] CALLED STATED DO NOT SEE BED AVAILABLE IN FORSEEABLE FUTURE. ADVISED TO BEGIN LOOKING AT OTHER FACILITIES FOR PLACEMENT. NOTIFIED DR MARCUM AND DR SHARMA.
--- NOTE | 2022-04-23 15:38 | NUR ---
PT'S SATS DROPPED TO MID 80S WHILE SLEEPING HAD TO STERNAL RUB PT TO WAKE PT. SATS INCREASED TO MID 90S ON 4L 02 WHEN AWAKE. PT STILL SLEEPY. STOPPED CONTINUOUS AND REMOVED DRESS DRAPER BUTTON FROM PT'S REACH. DR SHARMA NOTIFIED. NEW DRESS DRAPER ORDERS PENDING.
--- NOTE | 2022-04-23 16:40 | NUR ---
PT SLEEPING WHEN ENTERED ROOM BUT AWAKENED TO LIGHT TOUCH. ABLE TO TAKE METOPROLOL PER ORDERS. DAUGHTER AT BEDSIDE. DISCUSSED PLAN FOR NEW RISK INVESTIGATOR ORDERS WITH DAUGHTER AND PATIENT. CALL LIGHT IN REACH.
--- NOTE | 2022-04-23 17:52 | NUR ---
SUMMARY PT STARTED ON PEARLER TODAY PER ORDERS. WAS SOMNOLENT AND SATS DROPPED TO MID 80S, STERNAL RUBBED TO WAKE. STOP PEARLER AND CALLED DR SHARMA. NEW ORDERS OBTAINED. RESTARTED AT NEW RATE THIS AFTERNOON PER ORDERS. HAVE NOT GIVEN PT PEARLER DEMAND BUTTON TO MONITOR SEDATION LEVEL. PT WAS SLEEPING WHEN ENTERED ROOM TO DELIVER DINNER BUT WOKE TO VOICE AND LIGHT TOUCH. DRAIN PUTTING OUT SCANT AMOUNT OF PURULENT DRAINAGE. DAUGHTER HAS BEEN AT BEDSIDE T/O MOST OF DAY. CALL LIGHT IN REACH. AWAITING UPDATED PLAN FOR TRANSFER.
[2022-04-24 05:17] LABS: Adenovirus F 40/41 Not Detected (NOT DETECT); Astrovirus Not Detected (NOT DETECT); Campylobacter Sp Not Detected (NOT DETECT); Cryptosporidium Not Detected (NOT DETECT); Cyclospora Cayetanensis Not Detected (NOT DETECT); E. Coli O157 Not Detected (NOT DETECT); Entamoeba Histolytica Not Detected (NOT DETECT); Enteroaggregative E. coli-EAEC Not Detected (NOT DETECT); Enteropathogenic E. coli-EPEC Not Detected (NOT DETECT); Enterotoxigenic E. coli-ETEC Not Detected (NOT DETECT); Giardia Lamblia Not Detected (NOT DETECT); Norovirus GI/GII Detected (NOT DETECT); Plesiomonas Shigelloides Not Detected (NOT DETECT); Rotavirus A Not Detected (NOT DETECT); Salmonella Sp Not Detected (NOT DETECT); Sapovirus Not Detected (NOT DETECT); Shiga Toxin-prod E. coli-STEC Not Detected (NOT DETECT); Shigella/Enteroin E. coli-EIEC Not Detected (NOT DETECT); Vibrio Cholerae Not Detected (NOT DETECT); Vibrio Sp Not Detected (NOT DETECT); Yersinia Enterocolitica Not Detected (NOT DETECT)
--- NOTE | 2022-04-24 05:51 | NUR ---
SHIFT SUMMARY AOX4. VSS. REPORTS ABD PAIN LEVEL IS BETTER TODAY THEN PREVIOUS DAY. RATING 6/10 c SENIOR CONTROLS ENGINEER PUMP. PT ABLE TO REST WELL T/O NIGHT. HAD 2 MUCOUSY LIQUID BM THIS SHIFT & 1 BM REPORTED PREVIOUSLY ON DAY SHIFT, INFORMED DR PETER & GI SAMPLE ALONG c PROBIOTIC ORDERED. STOOL +C. DIFF & NOROVIRUS, PLACED PT IN ISOLATION & INFORMED CHARGE NURSE. DENIES N/V OR DYSPNEA. URESIL HAD NO OUTPUT THIS SHIFT, ABD BINDER IN PLACE, TEGADERM OVER DRAIN SECURMENT DEVICE HAS SM AMOUNT RED/BLOOD. HEP DRIP RUNNING 37ML/HR. TPN RUNNING 94ML/HR. BETTS PATENT & DRAINING CLEAR YELLOW URINE. RECTUM, GROIN FOLDS EXCORIATED FROM STOOL, CLEANSED WELL & APPLIED POWDER TO HELP DRY SKIN. CALL LIGHT IN REACH.
[2022-04-24 08:36] LABS: Hematocrit 25.6 % (33.0-51.0); Hemoglobin 7.6 g/dL (11.5-16.0); Mean Corpuscular HGB 29.3 pg (26.0-34.0); Mean Corpuscular HGB Conc 29.7 g/dL (31.5-36.5); Platelet Count 201 K/mm3 (150-400); RDW Coefficient Variation 18.8 % (11.7-14.2); RDW Standard Deviation 67.2 fL (35.1-46.3); Red Blood Cell Count 2.59 M/mm3 (3.80-5.20); White Blood Cell Count 8.28 K/mm3 (4.00-11.30)
[2022-04-24 08:37] LABS: Mean Corpuscular Volume 99 fL (80-100); Mean Platelet Volume 13.4 fL (9.1-12.4)
[2022-04-24 09:51] LABS: Albumin, Blood 1.6 g/dL (3.4-5.0); Anion Gap 0 mmol/L (6-16); Blood Urea Nitrogen 11 mg/dL (8-24); Bun/Creatinine Ratio 18.7 (12.0-20.0); CO2, Blood 38 mmol/L (21-32); Calcium, Blood 8.2 mg/dL (8.5-10.1); Chloride, Blood 96 mmol/L (98-108); Creatinine, Blood 0.59 mg/dL (0.40-1.00); Glomerular Filtration Rate 89 (60-); Glucose, Blood 112 mg/dL (70-99); Phosphorus, Blood 3.1 mg/dL (2.5-4.9); Potassium, Blood 4.8 mmol/L (3.5-5.5); Sodium, Blood 134 mmol/L (136-145)
--- NOTE | 2022-04-24 14:34 | NUR ---
PICC LINE PICC LINE FOUND TO BE OUT AT 7CM INSTEAD OF 5CM LISTED WHEN IT WAS PLACED. CONTACTED YUMIKO BROWN REGARDING CONCERNS; CHEST XRAY RECOMMENDED. DR. SHARMA NOTIFIED AND CHEST XRAY ORDERED. PER RADIOLOGY THE PICC LINE COULD BE ADVANCED 5CM. YUMIKO BROWN REPORTED THAT PICC LINES CANNOT BE ADVANCED. DR. SHARMA NOTIFIED AND STATED TO REPLACE PICC LINE. YUMIKO BROWN RN CALLED FOR PICC LINE REPLACEMENT, PER YUMIKO HE DID NOT BELIEVE PICC LINE NEEDED REPLACED. PER YUMIKO OK TO USE PICC LINE BECAUSE PLACEMENT OF THE LINE IS STILL APPROPRIATE. MESSAGE LEFT WITH DR. SHARMA NOTIFYING HER OF RECOMMENDATION.
[2022-04-24 15:38] LABS: Influenza A, PCR NEGATIVE (NEGATIVE); Influenza B, PCR NEGATIVE (NEGATIVE); Resp Syncytial Virus, PCR NEGATIVE (NEGATIVE); SARS-Cov-2 (COVID-19) PCR, MMC NEGATIVE (NEGATIVE)
--- NOTE | 2022-04-24 15:40 | NUR ---
PICC LINE DR. SHARMA CONFIRMED IT IS OK TO CONTINUE TO USE PICC LINE WITHOUT REPLACING.
--- NOTE | 2022-04-24 17:08 | NUR ---
COBRA TRANSFER PT LEFT WITH [facility] AT APPROXIMATELY 1612. PT SENT WITH [facility] PARAPROFESSIONAL FOR PAIN MANAGEMENT. TRANFER PACKET SENT. REPORT CALLED TO DARYL RAYO RN AT [facility] IN [place] AT APPROXIMATELY 1630. FAMILY AT BEDSIDE AND AWARE OF TRANSPORT.
== END 2022-04-24 16:10 | disposition short-term general hospital (02) | DRG 872 ==
LOC: ER 16:58 → SURS 22:41 → MEDS 22:41 → SURS 23:18
PROVIDERS: Family Medicine; Internal Medicine; Student in an Organized Health Care Education/Training Program; Surgery; ADMIT Internal Medicine
PROC: 3E03329 Introduction of Other Anti-infective into Peripheral Vein, Percutaneous Approach (ICD-10-PCS; 2022-04-08)
PROC: 02HV33Z Insertion of Infusion Device into Superior Vena Cava, Percutaneous Approach (ICD-10-PCS; 2022-04-11)
PROC: 0W9J30Z Drainage of Pelvic Cavity with Drainage Device, Percutaneous Approach (ICD-10-PCS; principal; 2022-04-12)
PROC: 0W9J30Z Drainage of Pelvic Cavity with Drainage Device, Percutaneous Approach (ICD-10-PCS; 2022-04-20)
DX: A41.4 Sepsis due to anaerobes (principal); K57.20 Diverticulitis of large intestine with perforation and abscess without bleeding; J96.11 Chronic respiratory failure with hypoxia; I48.20 Chronic atrial fibrillation, unspecified; I13.0 Hypertensive heart and chronic kidney disease with heart failure and stage 1 through stage 4 chronic kidney disease, or unspecified chronic kidney disease; E46 Unspecified protein-calorie malnutrition; I50.32 Chronic diastolic (congestive) heart failure; E27.49 Other adrenocortical insufficiency; Z66 Do not resuscitate; Z20.822 Contact with and (suspected) exposure to COVID-19; B96.4 Proteus (mirabilis) (morganii) as the cause of diseases classified elsewhere; I49.5 Sick sinus syndrome; J45.909 Unspecified asthma, uncomplicated; M79.7 Fibromyalgia; D63.1 Anemia in chronic kidney disease; B96.7 Clostridium perfringens [C. perfringens] as the cause of diseases classified elsewhere; E66.01 Morbid (severe) obesity due to excess calories; M54.9 Dorsalgia, unspecified; G89.4 Chronic pain syndrome; E03.9 Hypothyroidism, unspecified; N18.30 Chronic kidney disease, stage 3 unspecified; K21.9 Gastro-esophageal reflux disease without esophagitis; Z68.30 Body mass index [BMI] 30.0-30.9, adult; Z87.891 Personal history of nicotine dependence; Z95.0 Presence of cardiac pacemaker; Z88.0 Allergy status to penicillin; Z88.5 Allergy status to narcotic agent; Z88.6 Allergy status to analgesic agent; Z88.8 Allergy status to other drugs, medicaments and biological substances; Z91.040 Latex allergy status; Z91.041 Radiographic dye allergy status; Z91.048 Other nonmedicinal substance allergy status; Z79.01 Long term (current) use of anticoagulants; Z79.890 Hormone replacement therapy; Z79.899 Other long term (current) drug therapy
CPT/HCPCS: 0241U; 36415; 36569; 49405; 71045; 74176; 74177; 80048; 80053; 80069; 80400; 82533; 82947; 83605; 83690; 83735; 83880; 84100; 84478; 85014; 85018; 85025; 85027; 85049; 85520; 85610; 85730; 87040; 87070; 87075; 87076; 87077; 87185; 87186; 87205; 87324; 87507; 93005; 93010; 93306; 94760; 94762; 96365; 96375; 96376; 97110; 97162; 97530; 99285-25; A9270; C1751; J0692; J0744; J0834; J1170; J1200; J1644; J2405; J2930; J3010; J3411; J7030; J7040; J7050; P9047; P9612; Q9967; U0004

== ENCOUNTER 2022-08-31 08:50 | Inpatient (IN) | payer MEDICARE ==
[~2022-08-31] VITALS: Ht 170.2 cm; Wt 86.4 kg
[~2022-08-31 08:50] MED LIST changes: +OXYC10TA19 PO
[2022-08-31 09:12] LABS: BASOPHILS ABSOLUTE AUTO 0.07 K/mm3 (0.00-0.23); BASOPHILS PERCENT AUTO 1 % (0-2); EOSINOPHILS ABSOLUTE AUTO 0.17 K/mm3 (0.00-0.68); EOSINOPHILS PERCENT AUTO 2 % (0-6); Hematocrit 30.7 % (33.0-51.0); Hemoglobin 9.4 g/dL (11.5-16.0); IMMATURE GRAN ABSOLUTE AUTO 0.03 K/mm3 (0.00-0.10); IMMATURE GRAN PERCENT AUTO 0 % (0-1); LYMPHOCYTES ABSOLUTE AUTO 3.06 K/mm3 (0.84-5.20); LYMPHOCYTES PERCENT AUTO 32 % (21-46); MONOCYTES PERCENT AUTO 7 % (4-13); Mean Corpuscular HGB 27.3 pg (26.0-34.0); Mean Corpuscular HGB Conc 30.6 g/dL (31.5-36.5); Mean Corpuscular Volume 89 fL (80-100); Mean Platelet Volume 11.2 fL (9.1-12.4); NEUTROPHILS ABSOLUTE AUTO 5.64 K/mm3 (1.96-9.15); NEUTROPHILS PERCENT AUTO 58 % (41-73); Platelet Count 230 K/mm3 (150-400); RDW Coefficient Variation 17.2 % (11.7-14.2); RDW Standard Deviation 55.9 fL (35.1-46.3); Red Blood Cell Count 3.44 M/mm3 (3.80-5.20); White Blood Cell Count 9.67 K/mm3 (4.00-11.30)
[2022-08-31 09:23] LABS: Source, Urine Straight Cath
[2022-08-31 09:29] LABS: Appearance, Urine Clear (Clear); Bilirubin, Urine Neg (Neg); Blood, Urine Neg (Neg); Color, Urine Yellow (P-Yellow); Glucose Qualitative, Urine Neg (Neg); Ketones, Urine Neg (Neg); Leukocyte Esterase, Urine Neg (Neg); Nitrite, Urine Neg (Neg); Protein, Urine Neg (Neg); Urobilinogen, Urine NORM (Normal)
[2022-08-31 09:38] LABS: Albumin, Blood 2.6 g/dL (3.4-5.0); Albumin/Globulin Ratio 0.8 (0.8-1.8); Bilirubin, Total 0.4 mg/dL (0.1-1.0); Calcium, Blood 8.4 mg/dL (8.5-10.1); Creatinine, Blood 0.68 mg/dL (0.40-1.00); Globulin, Blood 3.1 g/dL (2.2-4.0); Magnesium, Blood 1.9 mg/dL (1.6-2.4); Potassium, Blood 3.7 mmol/L (3.5-5.5); Total Protein, Blood 5.7 g/dL (6.4-8.2)
[2022-08-31] MEDS ORDERED: AMIT50 PO (14:53)
[2022-08-31] MEDS ORDERED: POTCHL20ER PO (14:54)
[2022-08-31 14:58] VITALS: BP 139/75
--- NOTE | 2022-08-31 18:04 | NUR ---
SHIFT SUMMARY: Received pt from ED @ 1430 with daughter Patricia. Dtr Michelle on phone for home med review. Pt is A&O X3, forgetful and seeing man in door way that isn't there. VSS, Resp even nonlabored on RA. LSCTA, diminished. Continuous pulse ox in place. Ostomy 1 month old intact with brown output. Purwick in place from ED. Pt with pain to lower back and left hip pain primarily, however is sensitive to touch. Pt states her fibromyalgia causes her alot of generalized pain. Pain med given as ordered. Repostioned for comfort. Pt verbalizes understanding of call light. Bed in lowest position and locked. Bed alarm on. No further needs id or verbalized at this time. Will continue to monitor.
[2022-08-31 20:11] VITALS: BP 124/62
[2022-09-01 04:16] VITALS: BP 109/55
[2022-09-01 05:21] LABS: BASOPHILS ABSOLUTE AUTO 0.04 K/mm3 (0.00-0.23); BASOPHILS PERCENT AUTO 0 % (0-2); EOSINOPHILS ABSOLUTE AUTO 0.16 K/mm3 (0.00-0.68); EOSINOPHILS PERCENT AUTO 2 % (0-6); IMMATURE GRAN ABSOLUTE AUTO 0.03 K/mm3 (0.00-0.10); IMMATURE GRAN PERCENT AUTO 0 % (0-1); LYMPHOCYTES ABSOLUTE AUTO 3.57 K/mm3 (0.84-5.20); LYMPHOCYTES PERCENT AUTO 36 % (21-46); MONOCYTES ABSOLUTE AUTO 0.96 K/mm3 (0.16-1.47); MONOCYTES PERCENT AUTO 10 % (4-13); Mean Corpuscular HGB 26.9 pg (26.0-34.0); Mean Corpuscular Volume 90 fL (80-100); Mean Platelet Volume 11.7 fL (9.1-12.4); NEUTROPHILS ABSOLUTE AUTO 5.27 K/mm3 (1.96-9.15); NEUTROPHILS PERCENT AUTO 53 % (41-73); Platelet Count 196 K/mm3 (150-400); RDW Coefficient Variation 17.3 % (11.7-14.2); RDW Standard Deviation 56.4 fL (35.1-46.3); Red Blood Cell Count 3.35 M/mm3 (3.80-5.20); White Blood Cell Count 10.03 K/mm3 (4.00-11.30)
[2022-09-01 05:55] LABS: Albumin, Blood 2.6 g/dL (3.4-5.0); Albumin/Globulin Ratio 0.8 (0.8-1.8); Bilirubin, Total 0.7 mg/dL (0.1-1.0); Bun/Creatinine Ratio 16.8 (12.0-20.0); Calcium, Blood 8.8 mg/dL (8.5-10.1); Creatinine, Blood 0.78 mg/dL (0.40-1.00); Globulin, Blood 3.3 g/dL (2.2-4.0); Potassium, Blood 3.7 mmol/L (3.5-5.5); Total Protein, Blood 5.9 g/dL (6.4-8.2)
--- NOTE | 2022-09-01 06:10 | NUR ---
SHIFT SUMMARY PT LAYING IN BED DURING BEDSIDE ROUNDS- PT ALERT AND ORIENT X 4 WITH MOMENTS OF CONFUSION AND HALLUCINATIONS- PT REPEATILY STATED THAT HER COLOSTOMY WAS LEAKING EVERYWHERE- SHOWED PT THAT IT WAS INTACT AND NO LEAKAGE - PT UPSET AND BELIEVED SHE COULD SEE BM ALL OVER HER BED- PT TOOK HS MEDS WITHOUT PROBLEMS- PT REQUESTED TYLENOL FOR BACK NECK HIP PAIN- PT USED CALL LIGHT SEVERAL TIMES TO HAVE HER LEAKING COLOSTOMY CLEANED AND CHANGED- REORIENTED PT THAT IT WAS DRY AND INTACT- PT HALLUCINATING OF PEOPLE IN HER ROOM AND ITEMS IN HER BED- ENCOURAGED PT TO LEAVE NC IN PLACE- TOOL AND CUTTER GRINDER ALARMING WHEN REMOVED [address] MENESES - PT REQUESTING SOMETHING FOR SLEEP- PT LAYING IN BED AND UNABLE TO SLEEP- NEW ORDER FOR MELATONIN- PT CONTINUED TO HAVE HALLUCINATIONS AND AGITATION IS INCREASING - PT ATTEMPTED TO GET OUT OF BED SEVERAL TIMES, REMOVING NASAL CANULA, AND UNPLUGGING TOOL AND CUTTER GRINDER- PT TALKING TO PEOPLE IN ROOM AND THINKS THERE ARE CATS IN THE ROOM WITH HER- REORIENTING PT AND ENCOURAGING TO TRY TO CLOSE EYES AND GET SOME REST- [address] MENESES RE: PT CONTINUING TO BE AGITATED AND CONFUSED- NEW ORDER FOR SEROQUEL- PT REQUESTED OXYCODONE - GAVE TYLENOL TO MONITOR REACTION OF SEROQUEL- PT CONTINUES TO HALLUCINATE- PT HAS NOT SLEPT T/O NIGHT 05 PT CRYING THAT SHE IS IN PAIN- GAVE OXYCODONE AND REPOSITIONED - PT CONTINUES TO BE CONFUSED AND HALLUCINATING - BED LOW POSITION, CALL LIGHT WITHIN REACH, BED ALARM IN PLACE
[2022-09-01 07:39] VITALS: BP 150/52
--- NOTE | 2022-09-01 11:11 | NUR ---
PT WAS MOVED FROM ROOM 363 TO 344. REPORT WAS GIVEN TO CHAMP SILVA PRIOR TO ROOM CHANGE. PT MOVED VIA BED AND PERSONAL BELONGS MOVED WITH PT WELL. PT AOX1 AND VERY CONFUSED AND IMPULSIVE. PT HAS ALSO BEEN HAVING VISUAL HALUCINATIONS.
--- NOTE | 2022-09-01 11:28 | NUR ---
NOTE: BLADDER SCAN WAS PERFORMED ON PATIENT, 749 MLS APPEARS IN BLADDER SCANNER. THIS RN CALLED DR. GARCÍA TO REPORT THIS ISSUE. RECEIVED ORDER FROM DR. GARCÍA TO PLACE BETTS CATHETER IN FOR RETENTION.
[2022-09-01 11:57] LABS: Source, Urine Foley catheter
[2022-09-01 12:01] LABS: Appearance, Urine Clear (Clear); Bilirubin, Urine Neg (Neg); Blood, Urine Neg (Neg); Color, Urine Yellow (P-Yellow); Glucose Qualitative, Urine Neg (Neg); Ketones, Urine Neg (Neg); Leukocyte Esterase, Urine Neg (Neg); Nitrite, Urine Neg (Neg); Protein, Urine Neg (Neg); Specific Gravity, Urine 1.005 (1.003-1.022); Urobilinogen, Urine NORM (Normal)
[2022-09-01 14:44] LABS: Base Excess Venous 8.8 mmol/L; Bicarbonate Venous 31.5 mmol/L (24.0-30.0); PCO2 Venous 52.5 mmHg (38-42); pH Blood Venous 7.41 (7.34-7.37)
[2022-09-01 14:54] VITALS: BP 165/55
[2022-09-01 15:31] LABS: Percent Saturation 23.6 % (15.0-50.0)
--- NOTE | 2022-09-01 17:10 | NUR ---
SHIFT SUMMARY: ASSUMED CARE OF PATIENT AT AROUND 0935. PATIENT IS WIDE AWAKE AND VERY CONFUSED. PATIENT HAS VISUAL HALLUCINATIONS. PATIENT REPORTS SEEING HER SISTER IN ROOM THAT HAS MANY YEARS AGO. ALSO, SEEING KIDS IN ROOM AND DIFFERENT MEMBER OF HER FAMILY. DAUGHTER AT BEDSIDE REASSURING PATIENT THAT SHE IS THE ONLY FAMILY MEMBER IN ROOM AND HOSPITAL STAFF. PATIENT ANXIOUS, KICKING BLANKET AND THROWING PILLOWS OUT OF BED. ATTEMPTING TO GET OUT OF BED ON MULTIPLE OCCASSION. PATIENT WAS MEDICATED c PO ZYPREXA c NO EFFECT. REPORTS PAIN 8/10 TO BACK MEDICATED X1 c PO OXYCODONE. PER PATIENT PAIN DOWN TO 4/10. PATIENT CONTINUES TO BE RESTLESS AND AGITATED IN BED. DAUGHTER REQESTED TO THIS RN IF THEIR IS ANY MEDICATION THAT THIS RN CAN GIVE TO PATIENT TO HELP HER RELAXED. THIS RN CALLED DR. GARCÍA REGARDING PATIENT CONDITION, WHICH CONTINUE TO BE AGITATED AND VERY RESTLESS. RECEIVED ORDER FROM DR. GARCÍA TO GIVE OT DOSE 10 MG IM GEODON, c NO EFFECT. PATIENT CONTINUES TO BE MORE AGITATED AND RESTLESS IN BED. CALLED DR. GARCÍA TO REPORTS PATIENT CONDITION. RECEIVED ORDER FROM DR. GARCÍA TO GIVE OT DOSE 1 MG OF IV ATIVAN. PER DAUGHTER AT BEDSIDE PATIENT HAS NOT SLEPT FOR 2 AND A HALF DAYS. BETTS DRAINING YELLOW URINE TO GRAVITY c TOTAL URINE OUTPUT OF 1200 MLS. VITAL SIGNS REVIEWED. IV TO L WRIST SALINE LOCKED. BED ALARM ON FOR SAFETY. VEDIO MONITORING ON. CALL LIGHT IN REACH.
--- NOTE | 2022-09-01 18:46 | NUR ---
ADDITIONAL NOTES: AT THIS POINT, PATIENT IS NOT TALKING AND NOT TRACKING. STILL SLIGHTLY AGITATED WHEN RN ATTEMPTING TO GIVE SCHEDULED MEDS AND NOT SWALLOWING. 1700 AND 1800 MEDS WERE HELD. PATIENT HAS SPASMATIC MOVEMENT. CALLED DR. GARCÍA TO NOTIFY PATIENT CONDITION. RECEIVED ORDERS FROM DR. GARCÍA TO CALL DR. BOYER. THIS RN CALLED DR. BOYER. RECEIVED ORDER FROM DR. BOYER TO CONTINUE TO MONITOR PATIENT CONDITION. BEDSIDE REPORT GIVEN TO NOC RNEDWARD.
[2022-09-01 21:03] VITALS: BP 165/69
--- NOTE | 2022-09-02 04:10 | NUR ---
SHIFT SUMMARY PATIENT HAD NO ACUTE CHANGES. AXOX 2, CONFUSED, AND LETHARGIC T/O SHIFT. PO MEDICATION HELD. BEDREST AND ON 02 2L N/C. PIV REMAINS INTACT. BETTS PATENT AND DRAINING TO GRAVITY. COLOSTOMY INTACT. NO HALLUCINATIONS OBSERVED. REPORTED BACK PAIN X ONE AND OXYCODONE 10 MG GIVEN PER EMAR. ZYPREXA ODT 5 MG GIVEN FOR AGITATION. DENIES CHEST PAIN, SOB, AND N/V. VSS/AFEBRILE. SISTER PRESENT FIRST FEW HOURS OF SHIFT. CALL LIGHT IN REACH. BED IN LOWEST POSITION. WILL CONTINUE TO MONITOR UNTIL DAY SHIFT NURSE ASSUMES CARE.
[2022-09-02 04:24] VITALS: BP 162/69
[2022-09-02 05:32] LABS: Hematocrit 31.9 % (33.0-51.0); Hemoglobin 9.6 g/dL (11.5-16.0); Mean Corpuscular HGB 26.6 pg (26.0-34.0); Mean Corpuscular HGB Conc 30.1 g/dL (31.5-36.5); Mean Corpuscular Volume 88 fL (80-100); Mean Platelet Volume 11.9 fL (9.1-12.4); Platelet Count 212 K/mm3 (150-400); RDW Coefficient Variation 17.4 % (11.7-14.2); RDW Standard Deviation 57.3 fL (35.1-46.3); Red Blood Cell Count 3.61 M/mm3 (3.80-5.20); White Blood Cell Count 10.68 K/mm3 (4.00-11.30)
[2022-09-02 06:12] LABS: Albumin, Blood 2.7 g/dL (3.4-5.0); Albumin/Globulin Ratio 0.7 (0.8-1.8); Bilirubin, Total 0.7 mg/dL (0.1-1.0); Bun/Creatinine Ratio 15.4 (12.0-20.0); Calcium, Blood 8.6 mg/dL (8.5-10.1); Creatinine, Blood 0.58 mg/dL (0.40-1.00); Globulin, Blood 3.7 g/dL (2.2-4.0); Potassium, Blood 3.7 mmol/L (3.5-5.5); Thyroid Stimulating Hormone 0.369 uIU/mL (0.360-4.800); Total Protein, Blood 6.4 g/dL (6.4-8.2)
[2022-09-02 07:04] VITALS: BP 146/66
[2022-09-02 10:01] LABS: pH Blood Arterial 7.44 (7.35-7.45)
--- NOTE | 2022-09-02 12:20 | NUR ---
daughter at bedside helpful with patient care, pt rounded on patient, patient having extreme pain with any movement, medicated for pain, refusing to eat this am, call light with in reach, kpad to back. patient resting now snoring
[2022-09-02 16:18] VITALS: BP 142/60
[2022-09-02 20:08] VITALS: BP 123/49
[2022-09-03 03:30] VITALS: BP 98/54
--- NOTE | 2022-09-03 04:25 | NUR ---
SHIFT SUMMARY PATIENT HAD NO ACUTE CHANGES. AXOX 2 WITH CONFUSION, AND BEDREST. SLEEPING BUT AUROUSABLE MOST OF THE SHIFT. DAUGHTER PRESENT FIRST FOUR HOURS OF SHIFT. REPORTED BACK PAIN X TWO AND OXYCODONE 5 MG GIVEN PER EMAR. ZYPREXA 5 MG GIVEN FOR AGITATION. VSS/AFEBRILE. DENIES CHEST PAIN, SOB, AND N/V. ON 4L O2 NC. COLOSTOMY INTACT. NO HALLUCINATIONS OBSERVED. ON CAMERA. CALL LIGHT IN REACH. BED IN LOWEST POSITION. WILL CONTINUE TO MONITOR UNTIL DAY SHIFT NURSE ASSUMES CARE.
[2022-09-03 05:00] LABS: BASOPHILS ABSOLUTE AUTO 0.09 K/mm3 (0.00-0.23); BASOPHILS PERCENT AUTO 1 % (0-2); EOSINOPHILS ABSOLUTE AUTO 0.25 K/mm3 (0.00-0.68); EOSINOPHILS PERCENT AUTO 3 % (0-6); Hematocrit 31.1 % (33.0-51.0); Hemoglobin 9.4 g/dL (11.5-16.0); IMMATURE GRAN ABSOLUTE AUTO 0.03 K/mm3 (0.00-0.10); IMMATURE GRAN PERCENT AUTO 0 % (0-1); LYMPHOCYTES ABSOLUTE AUTO 2.27 K/mm3 (0.84-5.20); LYMPHOCYTES PERCENT AUTO 24 % (21-46); MONOCYTES ABSOLUTE AUTO 1.04 K/mm3 (0.16-1.47); MONOCYTES PERCENT AUTO 11 % (4-13); Mean Corpuscular HGB Conc 30.2 g/dL (31.5-36.5); Mean Corpuscular Volume 89 fL (80-100); Mean Platelet Volume 11.2 fL (9.1-12.4); NEUTROPHILS ABSOLUTE AUTO 5.93 K/mm3 (1.96-9.15); NEUTROPHILS PERCENT AUTO 62 % (41-73); Platelet Count 204 K/mm3 (150-400); RDW Coefficient Variation 17.6 % (11.7-14.2); RDW Standard Deviation 58.3 fL (35.1-46.3); Red Blood Cell Count 3.48 M/mm3 (3.80-5.20); White Blood Cell Count 9.61 K/mm3 (4.00-11.30)
[2022-09-03 05:24] LABS: Bun/Creatinine Ratio 25.5 (12.0-20.0); Calcium, Blood 8.7 mg/dL (8.5-10.1); Creatinine, Blood 0.59 mg/dL (0.40-1.00); Potassium, Blood 3.8 mmol/L (3.5-5.5)
[2022-09-03 07:58] VITALS: BP 126/50
--- NOTE | 2022-09-03 16:21 | NUR ---
SHIFT SUMMARY- PT IS A/O, PLESANT COOPERATIVE. HER DAUGHTER WAS AT BEDSIDE THROUGHOUT THIS SHIFT. HER BETTS IS PATIENT AND DRAINING. MINIMAL DARK COLORED URINE THIS SHIFT. OSTOMY CARE WAS PROVIDED THIS SHIFT. PT TAKES BUMEX AT HOME USUALLY DAILY ACCORDING TO DAUGHTER. BLADDER SCAN SHOWED NOTHING IN HER BLADDER. PT IS REPORTING PAIN IN HER NECK, MEDICATED PER MAY. PT WENT FOR AN XRAY THIS SHIFT FOR HER NECK PAIN.
[2022-09-03 16:33] VITALS: BP 109/39
--- NOTE | 2022-09-04 03:23 | NUR ---
SHIFT HAS BEEN UNREMARKABLE. PT TOOK 2100 MEDICATIONS WITHOUT DIFFICULTY AND HAS SLEPT THROUGH MUCH OF REMAINDER OF SHIFT. PER DAY SHIFT REPORT, PT NECK PAIN BECOMES VERY INTENSE THROUGHOUT DAY IF PAIN MEDICATIONS ARE NOT GIVEN Q4. HAVE GIVEN PAIN MEDICATIONS Q4 THROUGH THIS SHIFT TO PREVENT ESACALATING PAIN. PT HAS BEEN ABLE TO SLEEP WELL. BETTS INTACT AND DRAINING WELL. PT PLEASANT, COOPERATIVE WITH CARE. BED LOCKED IN LOWEST POSITION. CALL LIGHT LEFT WITHIN REACH.
[2022-09-04 05:56] VITALS: BP 137/63
[2022-09-04 07:36] VITALS: BP 135/61
[2022-09-04 15:26] VITALS: BP 131/54
--- NOTE | 2022-09-04 17:45 | NUR ---
SHIFT SUMMARY PT A&OX3 AND PLEASANT. PT HAS HAD SEVERE NECK/HEAD PAIN T/O DAY. HEAT PACK, REPOSITIONING AND PAIN MEDICATIONS ADMINISTERED PER EMAR. DILAUDED GIVEN ONCE FOR BREAK THROUGH PAIN WITH GOOD EFFECT. APHYSICAL THERAPY WORKED WITH PT AND PT TOLERATED WELL. KERRY DC'D TODAY AND PT UP TO BSC WITH 2 ASSIST AND GB. PT APPEARS TO BE DOING BETTER WITH MOVEMENT EACH TIME SHE GETS UP TO BSC. PT DOWN FOR CT SCAN OF NECK TODAY. RESULTS IN THE CHART. DAUGHTER AT BEDSIDE T/O DAY. BED IN LOWEST POSITION AND CALL LIGHT IN REACH.
[2022-09-04 20:55] VITALS: BP 134/48
--- NOTE | 2022-09-05 01:28 | NUR ---
PT EXPERIENCING INTENSE BREAKTHROUGH PAIN OF NECK AND HIP DESPITE OXYCODONE BEING GIVEN Q4 PER ORDERED SCHEDULE. CALLED HOSPITALIST DR. BOYER TO NOTIFY WHO ORDERED FENTANYL 25-50 MCG Q 4 IV FOR BREAKTHROUGH PAIN. ENTERED ORDER AND WILL ADMINISTER ONCE APPROVED.
--- NOTE | 2022-09-05 04:38 | NUR ---
PT HAS BEEN SLEEPING FOR THE PAST FEW HOURS. FOR ABOUT ~2 HOURS AROUND 0000 PT WAS DEALING WITH ESCALATING PAIN THAT HAD BEEN PROGRESSIVELY WORSENING SINCE MID EVENING. WAS ADMINISTERING PRESCRIBED OXYCODONE 5 MG Q4 PER ORDERS WHICH WAS NOT ADEQUATELY MANAGING PAIN. CALLED HOSPITALIST FOR BREAKTHROUGH PAIN MEDICATION. SEE RELATED NOTE FOR DETAILS. SINCE ADMINISTERING FENTANYL, PT HAS BEEN SLEEPING IN BED. WILL CONTINUE TO GIVE OXYCODONE Q~4 IN ATTEMPT TO PREVENT ESCALATING PAIN. PLACED PUREWICK TRANSFER TO BEDSIDE COMMODE WAS EXACERBATING PAIN. SHIFT HAS OTHERWISE BEEN UNREMARKABLE. PT IS SPORADICALLY SOMEWHAT CONFUSED, MORESO THAN LAST NIGHT BUT ONLY MILDLY. MANY QUESTIONS ABOUT PRESCRIBED MEDICATIONS, DIFFERENT LINES ATTACHED TO HER, IV, ETC. OVERALL VERY PLEASANT AND COOPERATIVE WITH CARE. CALLS APPROPRIATELY. BED LOCKED IN LOWEST POSITION. CALL LIGHT LEFT WITHIN REACH.
[2022-09-05 05:40] VITALS: BP 170/69
[2022-09-05 07:10] VITALS: BP 143/63
--- NOTE | 2022-09-05 14:28 | NUR ---
PT DISCHARGED HOME WITH HH. DC INSTRUCTIONS AND EDUCATION MATERIAL EXPLAINED TO PT. PERSCRIPTIONS FAXED TO [facility] PER PT REQUEST. IV DC'D. DAUGHTER HELPED PT DRESS. FAMILY GATHERED ALL PERSONAL BELONGINGS. THIS NURSE CALLED JALIL THE [facility], WHO EDUCATED PT ON NUTRITION AND FOOD SELECTION. PT TAKEN BY WHEELCHAIR TO WAITING VEHICLE.
== END 2022-09-05 14:28 | disposition home health service (06) | DRG 92 ==
LOC: ER 08:50 → MEDS 12:29 → ENPENDDIS 09-05 11:10 → MEDS 09-05 14:28
PROVIDERS: Internal Medicine; Student in an Organized Health Care Education/Training Program; ADMIT Internal Medicine
PROC: 0T9B70Z Drainage of Bladder with Drainage Device, Via Natural or Artificial Opening (ICD-10-PCS; principal; 2022-09-01)
PROC: 4A133R1 Monitoring of Arterial Saturation, Peripheral, Percutaneous Approach (ICD-10-PCS; 2022-09-02)
DX: G92.8 Other toxic encephalopathy (principal); E66.2 Morbid (severe) obesity with alveolar hypoventilation; J96.12 Chronic respiratory failure with hypercapnia; I13.0 Hypertensive heart and chronic kidney disease with heart failure and stage 1 through stage 4 chronic kidney disease, or unspecified chronic kidney disease; I48.20 Chronic atrial fibrillation, unspecified; R44.3 Hallucinations, unspecified; F02.811 Dementia in other diseases classified elsewhere, unspecified severity, with agitation; I50.32 Chronic diastolic (congestive) heart failure; M54.9 Dorsalgia, unspecified; D63.1 Anemia in chronic kidney disease; I35.0 Nonrheumatic aortic (valve) stenosis; J44.9 Chronic obstructive pulmonary disease, unspecified; M79.7 Fibromyalgia; K21.9 Gastro-esophageal reflux disease without esophagitis; E11.22 Type 2 diabetes mellitus with diabetic chronic kidney disease; G30.9 Alzheimer's disease, unspecified; N18.30 Chronic kidney disease, stage 3 unspecified; G89.29 Other chronic pain; R45.1 Restlessness and agitation; T40.2X5A Adverse effect of other opioids, initial encounter; D32.9 Benign neoplasm of meninges, unspecified; M19.09 Primary osteoarthritis, other specified site; M50.30 Other cervical disc degeneration, unspecified cervical region; R33.9 Retention of urine, unspecified; Z95.0 Presence of cardiac pacemaker; E03.9 Hypothyroidism, unspecified; Z88.5 Allergy status to narcotic agent; Z91.040 Latex allergy status; Z91.048 Other nonmedicinal substance allergy status; Z88.7 Allergy status to serum and vaccine; Z91.041 Radiographic dye allergy status; Z88.0 Allergy status to penicillin; Z88.8 Allergy status to other drugs, medicaments and biological substances; Z79.891 Long term (current) use of opiate analgesic; Z79.890 Hormone replacement therapy; Z68.28 Body mass index [BMI] 28.0-28.9, adult; Z90.49 Acquired absence of other specified parts of digestive tract; Z98.890 Other specified postprocedural states; Z90.710 Acquired absence of both cervix and uterus; Z99.81 Dependence on supplemental oxygen; Z79.01 Long term (current) use of anticoagulants; Z87.891 Personal history of nicotine dependence; Z79.899 Other long term (current) drug therapy; W18.39XA Other fall on same level, initial encounter
CPT/HCPCS: 36415; 36600; 70450; 71045; 72040; 72125; 73502; 80048; 80053; 81003; 82607; 82728; 82746; 82803; 83540; 83550; 83735; 84145; 84443; 85025; 85027; 93005; 93010; 94760; 94762; 96365-59; 97110; 97162; 97166; 97530; 99285-25; A9270; J0696; J1170; J1956; J2060; J3010; J3486; J7512

== ENCOUNTER 2023-04-02 19:21 | Emergency (ER) | payer MEDICARE ==
[~2023-04-02] VITALS: Ht 170.2 cm; Wt 90.7 kg
[~2023-04-02 19:21] MED LIST changes: +POTCHL20ER PO
[2023-04-02 20:25] LABS: BASOPHILS ABSOLUTE AUTO 0.03 K/mm3 (0.00-0.23); BASOPHILS PERCENT AUTO 0 % (0-2); EOSINOPHILS ABSOLUTE AUTO 0.11 K/mm3 (0.00-0.68); EOSINOPHILS PERCENT AUTO 1 % (0-6); Hematocrit 40.2 % (33.0-51.0); IMMATURE GRAN ABSOLUTE AUTO 0.03 K/mm3 (0.00-0.10); IMMATURE GRAN PERCENT AUTO 0 % (0-1); LYMPHOCYTES ABSOLUTE AUTO 1.69 K/mm3 (0.84-5.20); LYMPHOCYTES PERCENT AUTO 18 % (21-46); MONOCYTES ABSOLUTE AUTO 0.75 K/mm3 (0.16-1.47); MONOCYTES PERCENT AUTO 8 % (4-13); Mean Corpuscular HGB 31.5 pg (26.0-34.0); Mean Corpuscular HGB Conc 32.3 g/dL (31.5-36.5); Mean Corpuscular Volume 97 fL (80-100); Mean Platelet Volume 11.7 fL (9.1-12.4); NEUTROPHILS ABSOLUTE AUTO 6.65 K/mm3 (1.96-9.15); NEUTROPHILS PERCENT AUTO 72 % (41-73); Platelet Count 239 K/mm3 (150-400); RDW Coefficient Variation 13.4 % (11.7-14.2); RDW Standard Deviation 47.8 fL (35.1-46.3); Red Blood Cell Count 4.13 M/mm3 (3.80-5.20); White Blood Cell Count 9.26 K/mm3 (4.00-11.30)
[2023-04-02 20:57] LABS: Albumin, Blood 2.9 g/dL (3.4-5.0); Albumin/Globulin Ratio 0.7 (0.8-1.8); Bilirubin, Total 0.6 mg/dL (0.1-1.0); Bun/Creatinine Ratio 19.3 (12.0-20.0); Creatinine, Blood 0.57 mg/dL (0.40-1.00); Globulin, Blood 3.9 g/dL (2.2-4.0); Potassium, Blood 4.6 mmol/L (3.5-5.5); Total Protein, Blood 6.8 g/dL (6.4-8.2)
[2023-04-02 21:13] LABS: Source, Urine Fem Cath
[2023-04-02 21:18] LABS: Bilirubin, Urine Neg (Neg); Blood, Urine Neg (Neg); Glucose Qualitative, Urine Neg (Neg); Ketones, Urine Neg (Neg); Leukocyte Esterase, Urine Neg (Neg); Nitrite, Urine Neg (Neg); Protein, Urine Neg (Neg); Urobilinogen, Urine NORM (Normal)
[2023-04-02 21:35] LABS: Appearance, Urine Clear (Clear); Color, Urine Pale Yellow (P-Yellow)
[2023-04-02] MEDS ORDERED: BUME1 PO (21:47)
[2023-04-02] MEDS ORDERED: FERSU300 PO (21:48)
[2023-04-02] MEDS ORDERED: MONT10T PO (21:49)
[2023-04-02] MEDS ORDERED: OMEP20ER PO (21:50)
[2023-04-02] MEDS ORDERED: ONDA4ODT MM (21:51)
[2023-04-02] MEDS ORDERED: Percocet 10-321 EACH PO (21:51)
[2023-04-02 22:30] VITALS: BP 166/64
[2023-04-02] MEDS ORDERED: QUET25 PO (23:20)
== END 2023-04-02 23:50 | disposition home or self-care (01) ==
LOC: ER 19:21
PROVIDERS: Emergency Medicine
DX: R44.1 Visual hallucinations (principal); R44.0 Auditory hallucinations; G30.9 Alzheimer's disease, unspecified; F02.80 Dementia in other diseases classified elsewhere, unspecified severity, without behavioral disturbance, psychotic disturbance, mood disturbance, and anxiety; G89.29 Other chronic pain; M54.9 Dorsalgia, unspecified; I12.9 Hypertensive chronic kidney disease with stage 1 through stage 4 chronic kidney disease, or unspecified chronic kidney disease; N18.30 Chronic kidney disease, stage 3 unspecified; I48.20 Chronic atrial fibrillation, unspecified; E03.9 Hypothyroidism, unspecified; Z95.0 Presence of cardiac pacemaker; Z88.0 Allergy status to penicillin; Z88.5 Allergy status to narcotic agent; Z88.7 Allergy status to serum and vaccine; Z88.8 Allergy status to other drugs, medicaments and biological substances; Z91.040 Latex allergy status; Z91.041 Radiographic dye allergy status; Z79.01 Long term (current) use of anticoagulants; Z79.890 Hormone replacement therapy; Z79.52 Long term (current) use of systemic steroids; Z79.899 Other long term (current) drug therapy; Z91.81 History of falling
CPT/HCPCS: 70450; 80053; 81003; 85025; 99285-25; A9270

== ENCOUNTER 2023-09-09 12:34 | Inpatient (IN) | payer MEDICARE ==
[~2023-09-09] VITALS: Ht 172.7 cm; Wt 97.0 kg
[~2023-09-09 12:34] MED LIST changes: +BUME1 PO; +FERSU300 PO; +QUET25 PO
[2023-09-09] MEDS ORDERED: Diphth,Pertuss(Acell),Tet Vac 0.5 ML VIAL IM ONE (13:40)
[2023-09-09 13:45] LABS: BASOPHILS ABSOLUTE AUTO 0.05 K/mm3 (0.00-0.23); BASOPHILS PERCENT AUTO 1 % (0-2); EOSINOPHILS PERCENT AUTO 2 % (0-6); Hematocrit 35.7 % (33.0-51.0); Hemoglobin 11.2 g/dL (11.5-16.0); IMMATURE GRAN ABSOLUTE AUTO 0.06 K/mm3 (0.00-0.10); IMMATURE GRAN PERCENT AUTO 1 % (0-1); LYMPHOCYTES ABSOLUTE AUTO 1.39 K/mm3 (0.84-5.20); LYMPHOCYTES PERCENT AUTO 17 % (21-46); MONOCYTES ABSOLUTE AUTO 0.85 K/mm3 (0.16-1.47); MONOCYTES PERCENT AUTO 10 % (4-13); Mean Corpuscular HGB 31.5 pg (26.0-34.0); Mean Corpuscular HGB Conc 31.4 g/dL (31.5-36.5); Mean Corpuscular Volume 100 fL (80-100); Mean Platelet Volume 11.8 fL (9.1-12.4); NEUTROPHILS ABSOLUTE AUTO 5.63 K/mm3 (1.96-9.15); NEUTROPHILS PERCENT AUTO 69 % (41-73); Platelet Count 170 K/mm3 (150-400); RDW Coefficient Variation 13.9 % (11.7-14.2); RDW Standard Deviation 51.2 fL (35.1-46.3); Red Blood Cell Count 3.56 M/mm3 (3.80-5.20); White Blood Cell Count 8.18 K/mm3 (4.00-11.30)
[2023-09-09 13:55] LABS: Albumin, Blood 2.6 g/dL (3.4-5.0); Albumin/Globulin Ratio 0.9 (0.8-1.8); Bilirubin, Total 0.5 mg/dL (0.1-1.0); Bun/Creatinine Ratio 12.4 (12.0-20.0); Calcium, Blood 8.2 mg/dL (8.5-10.1); Creatinine, Blood 0.81 mg/dL (0.40-1.00); Magnesium, Blood 1.8 mg/dL (1.6-2.4); Total Protein, Blood 5.6 g/dL (6.4-8.2)
[2023-09-09 14:27] LABS: International Normalized Ratio 1.21; Prothrombin Time Results 12.8 Sec (9.7-11.5)
[2023-09-09 16:16] LABS: Influenza A, PCR NEGATIVE (NEGATIVE); Influenza B, PCR NEGATIVE (NEGATIVE); Resp Syncytial Virus, PCR NEGATIVE (NEGATIVE); SARS-Cov-2 (COVID-19) PCR, MMC NEGATIVE (NEGATIVE)
[2023-09-09] MEDS ORDERED: Clindamycin 600mg in D5W 50 ML IV ONE (17:20)
[2023-09-09] MEDS ORDERED: Azithromycin 500 MG in NS 250 ML IV ONE (17:25)
[2023-09-09] MEDS ORDERED: FentaNYL Citrate 50 MCG/ML 2 ML Injection IV PRN (17:50)
[2023-09-09] MEDS ORDERED: NS 1,000 ML IV SCH (17:50)
[2023-09-09] MEDS ORDERED: Ondansetron HCl 2 MG / ML 2ML Vial IV PRN (17:50)
[2023-09-09 17:56] LABS: Source, Urine Clean Catch
[2023-09-09] MEDS ORDERED: Ipratropium/Albuterol SulF 2.5-0.5MG/3 ML Amp INH PRN (18:00)
[2023-09-09 18:03] LABS: Appearance, Urine Clear (Clear); Bilirubin, Urine Neg (Neg); Blood, Urine Neg (Neg); Color, Urine Yellow (P-Yellow); Glucose Qualitative, Urine Neg (Neg); Ketones, Urine Neg (Neg); Leukocyte Esterase, Urine Neg (Neg); Nitrite, Urine Neg (Neg); Protein, Urine Neg (Neg); Urobilinogen, Urine NORM (Normal)
[2023-09-09 19:15] LABS: Hematocrit 33.2 % (33.0-51.0); Hemoglobin 10.4 g/dL (11.5-16.0)
[2023-09-09 19:19] LABS: Base Excess Venous 10.5 mmol/L; Bicarbonate Venous 32.6 mmol/L (24.0-30.0); PCO2 Venous 58.8 mmHg (38-42); pH Blood Venous 7.39 (7.34-7.37)
[2023-09-09 21:00] VITALS: BP 126/78
[2023-09-09] MEDS ORDERED: Prednisone10 MG PO (21:22)
[2023-09-09] MEDS ORDERED: DODEX1000 MCG/3 IM (21:28)
[2023-09-09] MEDS ORDERED: METOPROLOL TART25 MG PO (21:29)
[2023-09-09] MEDS ORDERED: OXYC10TA19 PO (21:30)
[2023-09-09] MEDS ORDERED: AMIT50 PO (21:31)
[2023-09-09] MEDS ORDERED: OXYB5 PO (21:31)
[2023-09-09] MEDS ORDERED: SULFAMETHOXAZO1 EAC1 PO (21:37)
[2023-09-10] MEDS ORDERED: Montelukast Sodium 10 MG Tab PO PRN (00:35)
[2023-09-10 01:21] LABS: Hematocrit 32.5 % (33.0-51.0)
[2023-09-10 04:28] VITALS: BP 139/55
[2023-09-10] MEDS ORDERED: Omeprazole 20 MG CapCR PO SCH (06:00)
[2023-09-10] MEDS ORDERED: Clindamycin 900mg in D5W 50ML 50 ML IV SCH (06:00)
[2023-09-10] MEDS ORDERED: Levothyroxine Sodium 0.15 MG Tab PO SCH (06:00)
[2023-09-10 06:58] LABS: BASOPHILS ABSOLUTE AUTO 0.05 K/mm3 (0.00-0.23); BASOPHILS PERCENT AUTO 1 % (0-2); EOSINOPHILS ABSOLUTE AUTO 0.19 K/mm3 (0.00-0.68); EOSINOPHILS PERCENT AUTO 3 % (0-6); IMMATURE GRAN ABSOLUTE AUTO 0.03 K/mm3 (0.00-0.10); IMMATURE GRAN PERCENT AUTO 1 % (0-1); LYMPHOCYTES ABSOLUTE AUTO 1.78 K/mm3 (0.84-5.20); LYMPHOCYTES PERCENT AUTO 30 % (21-46); MONOCYTES ABSOLUTE AUTO 0.89 K/mm3 (0.16-1.47); MONOCYTES PERCENT AUTO 15 % (4-13); Mean Corpuscular HGB 31.3 pg (26.0-34.0); Mean Corpuscular HGB Conc 31.3 g/dL (31.5-36.5); Mean Corpuscular Volume 100 fL (80-100); Mean Platelet Volume 11.2 fL (9.1-12.4); NEUTROPHILS ABSOLUTE AUTO 3.07 K/mm3 (1.96-9.15); NEUTROPHILS PERCENT AUTO 51 % (41-73); Platelet Count 148 K/mm3 (150-400); RDW Coefficient Variation 14.1 % (11.7-14.2); RDW Standard Deviation 51.2 fL (35.1-46.3); White Blood Cell Count 6.01 K/mm3 (4.00-11.30)
[2023-09-10 07:19] VITALS: BP 169/78
[2023-09-10 07:25] LABS: Alanine Aminotransfer (ALT/SGP <6 U/L (12-78); Albumin, Blood 2.3 g/dL (3.4-5.0); Albumin/Globulin Ratio 0.9 (0.8-1.8); Alk Phos 42 U/L (50-136); Anion Gap 8 mmol/L (3-11); Aspartate Aminotrans (AST/SGOT 11 U/L (12-37); Bilirubin, Total 0.7 mg/dL (0.1-1.0); Blood Urea Nitrogen 7 mg/dL (8-24); Bun/Creatinine Ratio 10.2 (12.0-20.0); CO2, Blood 33 mmol/L (21-32); Chloride, Blood 102 mmol/L (98-108); Creatinine, Blood 0.69 mg/dL (0.40-1.00); Globulin, Blood 2.6 g/dL (2.2-4.0); Glomerular Filtration Rate 85 (60-); Glucose, Blood 77 mg/dL (70-99); Sodium, Blood 139 mmol/L (136-145); Total Protein, Blood 4.9 g/dL (6.4-8.2)
[2023-09-10] MEDS ORDERED: Metoprolol Tartrate 25 MG Tab PO SCH (09:00)
[2023-09-10] MEDS ORDERED: oxyBUTYnin chloride 5 MG TAB PO SCH (09:00)
[2023-09-10] MEDS ORDERED: Ferrous Sulfate 325 MG Tab PO SCH (09:00)
[2023-09-10] MEDS ORDERED: Flecainide Acetate 100 MG Tab PO SCH (09:00)
[2023-09-10] MEDS ORDERED: ACET325 PO (11:36)
[2023-09-10] MEDS ORDERED: 1/2 NS 250ml250 ML PO (11:37)
[2023-09-10] MEDS ORDERED: Azithromycin 500 MG in NS 250 ML IV SCH (13:00)
[2023-09-10 13:25] LABS: Hematocrit 33.3 % (33.0-51.0); Hemoglobin 10.3 g/dL (11.5-16.0)
[2023-09-10] MEDS ORDERED: OxyCODONE HCL 5 MG TAB PO PRN (13:55)
[2023-09-10] MEDS ORDERED: Polyethylene Glycol 3350 17 gm PO SCH (14:00)
[2023-09-10 14:58] VITALS: BP 116/58
[2023-09-10] MEDS ORDERED: NS 250 ML IV PRN (16:40)
[2023-09-10 20:17] VITALS: BP 106/47
[2023-09-11 03:15] VITALS: BP 124/53
[2023-09-11 05:54] LABS: Hematocrit 32.3 % (33.0-51.0); Hemoglobin 10.1 g/dL (11.5-16.0); Mean Corpuscular HGB 31.4 pg (26.0-34.0); Mean Corpuscular HGB Conc 31.3 g/dL (31.5-36.5); Mean Corpuscular Volume 100 fL (80-100); Mean Platelet Volume 11.6 fL (9.1-12.4); Platelet Count 153 K/mm3 (150-400); RDW Coefficient Variation 13.9 % (11.7-14.2); RDW Standard Deviation 51.8 fL (35.1-46.3); Red Blood Cell Count 3.22 M/mm3 (3.80-5.20); White Blood Cell Count 6.21 K/mm3 (4.00-11.30)
[2023-09-11 06:17] LABS: Bun/Creatinine Ratio 13.4 (12.0-20.0); Calcium, Blood 8.1 mg/dL (8.5-10.1); Creatinine, Blood 0.6 mg/dL (0.40-1.00); Potassium, Blood 4.1 mmol/L (3.5-5.5)
[2023-09-11 07:24] VITALS: BP 135/56
[2023-09-11] MEDS ORDERED: Furosemide 10 MG/ML 4ML Vial IV ONE (08:10)
[2023-09-11 15:52] VITALS: BP 102/58
[2023-09-11] MEDS ORDERED: Medihoney Topical 44 ML TOP SCH (18:40)
[2023-09-11] MEDS ORDERED: OxyCODONE HCL 5 MG TAB PO PRN (18:40)
[2023-09-11 19:42] VITALS: BP 129/59
[2023-09-12 05:35] VITALS: BP 98/64
[2023-09-12 07:59] VITALS: BP 121/55
[2023-09-12 09:06] LABS: Albumin, Blood 2.2 g/dL (3.4-5.0); Anion Gap 7 mmol/L (3-11); Blood Urea Nitrogen 11 mg/dL (8-24); Bun/Creatinine Ratio 16.8 (12.0-20.0); CO2, Blood 36 mmol/L (21-32); Chloride, Blood 96 mmol/L (98-108); Creatinine, Blood 0.66 mg/dL (0.40-1.00); Glomerular Filtration Rate 86 (60-); Glucose, Blood 98 mg/dL (70-99); Magnesium, Blood 1.6 mg/dL (1.6-2.4); Phosphorus, Blood 2.8 mg/dL (2.5-4.9); Sodium, Blood 135 mmol/L (136-145)
[2023-09-12] MEDS ORDERED: Lidocaine 4% 1 Patch TOP SCH (14:00)
[2023-09-12] MEDS ORDERED: Furosemide 10 MG/ML 4ML Vial IV STA (15:00)
[2023-09-12 15:48] VITALS: BP 122/63
[2023-09-12] MEDS ORDERED: PRED5 PO (16:28)
[2023-09-12 19:25] VITALS: BP 114/54
[2023-09-13 05:52] VITALS: BP 107/43
[2023-09-13 06:39] LABS: Bun/Creatinine Ratio 18.5 (12.0-20.0); Calcium, Blood 8.3 mg/dL (8.5-10.1); Creatinine, Blood 0.59 mg/dL (0.40-1.00); Potassium, Blood 3.8 mmol/L (3.5-5.5)
[2023-09-13 07:06] VITALS: BP 117/46
[2023-09-13] MEDS ORDERED: Furosemide 10 MG/ML 4ML Vial IV SCH (09:00)
[2023-09-13 15:12] VITALS: BP 114/58
[2023-09-13 19:09] VITALS: BP 121/53
[2023-09-13] MEDS ORDERED: Lactobacil 2-S.Thermo-Bifido 1 1 Cap PO SCH (21:00)
[2023-09-14 03:19] VITALS: BP 127/55
[2023-09-14 06:15] LABS: Hemoglobin 9.5 g/dL (11.5-16.0); Mean Corpuscular HGB 31.3 pg (26.0-34.0); Mean Corpuscular HGB Conc 31.7 g/dL (31.5-36.5); Mean Corpuscular Volume 99 fL (80-100); Mean Platelet Volume 11.8 fL (9.1-12.4); Platelet Count 172 K/mm3 (150-400); RDW Coefficient Variation 13.9 % (11.7-14.2); RDW Standard Deviation 49.7 fL (35.1-46.3); Red Blood Cell Count 3.04 M/mm3 (3.80-5.20); White Blood Cell Count 5.77 K/mm3 (4.00-11.30)
[2023-09-14 06:51] LABS: Albumin, Blood 1.9 g/dL (3.4-5.0); Anion Gap 9 mmol/L (3-11); Blood Urea Nitrogen 10 mg/dL (8-24); Bun/Creatinine Ratio 16.6 (12.0-20.0); CO2, Blood 40 mmol/L (21-32); Calcium, Blood 7.7 mg/dL (8.5-10.1); Chloride, Blood 91 mmol/L (98-108); Glomerular Filtration Rate 88 (60-); Glucose, Blood 87 mg/dL (70-99); Magnesium, Blood 1.6 mg/dL (1.6-2.4); Phosphorus, Blood 2.8 mg/dL (2.5-4.9); Potassium, Blood 3.5 mmol/L (3.5-5.5); Sodium, Blood 136 mmol/L (136-145); Thyroid Stimulating Hormone 0.938 uIU/mL (0.360-4.800)
[2023-09-14 07:00] VITALS: BP 132/47
[2023-09-14 15:08] VITALS: BP 107/50
[2023-09-14 19:27] VITALS: BP 119/57
[2023-09-15 03:42] VITALS: BP 128/54
[2023-09-15 07:33] VITALS: BP 147/53
[2023-09-15] MEDS ORDERED: Potassium Chloride 20 MEQ TabCR PO SCH (08:00)
[2023-09-15 15:27] VITALS: BP 117/59
[2023-09-15 19:25] VITALS: BP 137/71
[2023-09-16 03:16] VITALS: BP 124/44
[2023-09-16 05:43] LABS: Albumin, Blood 2.1 g/dL (3.4-5.0); Anion Gap 8 mmol/L (3-11); Blood Urea Nitrogen 10 mg/dL (8-24); Bun/Creatinine Ratio 15.4 (12.0-20.0); CO2, Blood 43 mmol/L (21-32); Calcium, Blood 8.5 mg/dL (8.5-10.1); Chloride, Blood 86 mmol/L (98-108); Creatinine, Blood 0.65 mg/dL (0.40-1.00); Glomerular Filtration Rate 86 (60-); Glucose, Blood 97 mg/dL (70-99); Phosphorus, Blood 3.4 mg/dL (2.5-4.9); Potassium, Blood 3.7 mmol/L (3.5-5.5); Sodium, Blood 133 mmol/L (136-145)
[2023-09-16 07:13] VITALS: BP 125/50
[2023-09-16 14:59] VITALS: BP 117/52
[2023-09-16 20:07] VITALS: BP 126/63
[2023-09-17 05:13] VITALS: BP 134/54
[2023-09-17 06:00] LABS: Bun/Creatinine Ratio 20.1 (12.0-20.0); Calcium, Blood 8.5 mg/dL (8.5-10.1); Creatinine, Blood 0.55 mg/dL (0.40-1.00); Potassium, Blood 3.8 mmol/L (3.5-5.5)
[2023-09-17 06:02] LABS: FLECAINIDE 0.19 ug/mL (0.20-1.00)
[2023-09-17 07:42] VITALS: BP 125/58
[2023-09-17 14:27] VITALS: BP 126/67
[2023-09-17] MEDS ORDERED: Ondansetron HCl 2 MG / ML 2ML Vial IV PRN (14:30)
[2023-09-17 19:05] VITALS: BP 119/57
[2023-09-18 02:56] VITALS: BP 115/54
[2023-09-18 07:25] VITALS: BP 135/61
[2023-09-18 09:45] LABS: Bun/Creatinine Ratio 20.8 (12.0-20.0); Calcium, Blood 8.6 mg/dL (8.5-10.1); Creatinine, Blood 0.67 mg/dL (0.40-1.00); Magnesium, Blood 1.9 mg/dL (1.6-2.4); Potassium, Blood 4.1 mmol/L (3.5-5.5)
[2023-09-18 13:17] LABS: Base Excess Venous 18.9 mmol/L; Bicarbonate Venous 40.8 mmol/L (24.0-30.0); PCO2 Venous 48.6 mmHg (38-42)
[2023-09-18 13:19] LABS: pH Blood Venous 7.54 (7.34-7.37)
[2023-09-18] MEDS ORDERED: Clindamycin HCl 150 MG Cap PO SCH (14:00)
[2023-09-18] MEDS ORDERED: NS 500 ML IV ONE (14:00)
[2023-09-18] MEDS ORDERED: Furosemide 40 MG Tab PO SCH (18:00)
[2023-09-18 19:25] VITALS: BP 104/70
[2023-09-18 19:28] LABS: Bicarbonate Venous 40.6 mmol/L (24.0-30.0); PCO2 Venous 53.4 mmHg (38-42); pH Blood Venous 7.51 (7.34-7.37)
[2023-09-18 19:49] LABS: Bun/Creatinine Ratio 24.1 (12.0-20.0); Calcium, Blood 8.5 mg/dL (8.5-10.1); Creatinine, Blood 0.75 mg/dL (0.40-1.00); Potassium, Blood 4.1 mmol/L (3.5-5.5)
[2023-09-19 03:11] VITALS: BP 117/91
[2023-09-19 05:40] LABS: Base Excess Venous 18.1 mmol/L; Bicarbonate Venous 40.5 mmol/L (24.0-30.0); PCO2 Venous 43.4 mmHg (38-42)
[2023-09-19 05:41] LABS: pH Blood Venous 7.57 (7.34-7.37)
[2023-09-19 06:49] LABS: Bun/Creatinine Ratio 20.7 (12.0-20.0); Calcium, Blood 8.6 mg/dL (8.5-10.1); Creatinine, Blood 0.72 mg/dL (0.40-1.00); Potassium, Blood 4.3 mmol/L (3.5-5.5)
[2023-09-19 07:30] VITALS: BP 121/50
[2023-09-19] MEDS ORDERED: NS 500 ML IV ONE ×2 (08:00→17:00)
[2023-09-19] MEDS ORDERED: Furosemide 40 MG Tab PO SCH ×2 (09:00→18:00)
[2023-09-19 10:27] LABS: Base Excess Venous 14.5 mmol/L; Bicarbonate Venous 36.8 mmol/L (24.0-30.0); PCO2 Venous 46.5 mmHg (38-42); pH Blood Venous 7.51 (7.34-7.37)
[2023-09-19 11:02] LABS: Calcium, Blood 8.5 mg/dL (8.5-10.1); Creatinine, Blood 0.6 mg/dL (0.40-1.00); Potassium, Blood 4.5 mmol/L (3.5-5.5)
[2023-09-19 15:49] VITALS: BP 119/64
[2023-09-19] MEDS ORDERED: Calcium Carbonate 500 MG Tab Chew PO PRN (16:10)
[2023-09-19 20:08] VITALS: BP 131/61
[2023-09-20 02:36] VITALS: BP 113/51
[2023-09-20 05:51] LABS: Base Excess Venous 16.7 mmol/L; PCO2 Venous 47.5 mmHg (38-42); pH Blood Venous 7.53 (7.34-7.37)
[2023-09-20 06:47] LABS: Calcium, Blood 8.6 mg/dL (8.5-10.1); Creatinine, Blood 0.64 mg/dL (0.40-1.00); Potassium, Blood 4.1 mmol/L (3.5-5.5)
[2023-09-20 07:56] VITALS: BP 144/62
[2023-09-20] MEDS ORDERED: FentaNYL Citrate 50 MCG/ML 2 ML Injection IV PRN (15:00)
[2023-09-20] MEDS ORDERED: OxyCODONE HCL 5 MG TAB PO PRN (15:10)
[2023-09-20 15:16] VITALS: BP 143/60
[2023-09-20] MEDS ORDERED: PredniSONE 20 MG Tab PO ONE (18:00)
[2023-09-20 20:46] VITALS: BP 130/60
[2023-09-21 04:40] VITALS: BP 148/64
[2023-09-21 05:35] LABS: Bun/Creatinine Ratio 34.8 (12.0-20.0); Calcium, Blood 9.2 mg/dL (8.5-10.1); Creatinine, Blood 0.55 mg/dL (0.40-1.00); Potassium, Blood 4.9 mmol/L (3.5-5.5)
[2023-09-21 07:39] VITALS: BP 125/61
[2023-09-21] MEDS ORDERED: PredniSONE 20 MG Tab PO SCH (10:00)
[2023-09-21 14:44] VITALS: BP 112/53
[2023-09-21 20:06] VITALS: BP 125/64
[2023-09-22] VITALS (8 sets, daily range): BP systolic 116–162; BP diastolic 45–92
[2023-09-22 05:34] LABS: Bun/Creatinine Ratio 46.3 (12.0-20.0); Calcium, Blood 8.9 mg/dL (8.5-10.1); Creatinine, Blood 0.56 mg/dL (0.40-1.00); Potassium, Blood 5.3 mmol/L (3.5-5.5)
[2023-09-22] MEDS ORDERED: NS 1,000 ML IV SCH (08:30)
[2023-09-22] MEDS ORDERED: PredniSONE 10 MG Tab PO SCH (09:00)
[2023-09-22] MEDS ORDERED: Lactated Ringer's 1,000 ML IV ONE (16:53)
[2023-09-22] MEDS ORDERED: Ropivacaine 0.5% HCl/Pf 5 MG/ML 20ML VIAL ONE (17:26)
[2023-09-22] MEDS ORDERED: FentaNYL Citrate 50 MCG/ML 2 ML Injection ONE (17:28)
[2023-09-22] MEDS ORDERED: HYDROmorphone HCl/Pf 1MG SYR ONE ×2 (17:56→19:04)
[2023-09-22] MEDS ORDERED: propofoL 20 ML IV ONE (18:45)
[2023-09-23 05:16] LABS: Calcium, Blood 8.7 mg/dL (8.5-10.1); Creatinine, Blood 0.57 mg/dL (0.40-1.00)
[2023-09-23 05:51] VITALS: BP 123/64
[2023-09-23 07:51] VITALS: BP 164/61
[2023-09-23] MEDS ORDERED: Acetaminophen 325 MG TABLET PO PRN (10:35)
[2023-09-23 16:51] VITALS: BP 116/60
[2023-09-23] MEDS ORDERED: NS 500 ML IV ONE (17:55)
[2023-09-23 20:18] VITALS: BP 138/50
[2023-09-24 03:29] VITALS: BP 123/49
[2023-09-24 05:54] LABS: Bun/Creatinine Ratio 51.1 (12.0-20.0); Calcium, Blood 9.1 mg/dL (8.5-10.1); Creatinine, Blood 0.51 mg/dL (0.40-1.00); Potassium, Blood 4.4 mmol/L (3.5-5.5)
[2023-09-24 07:57] VITALS: BP 144/57
[2023-09-24] MEDS ORDERED: IPRAT-ALBUT 0.5-3 ML INH (11:54)
[2023-09-24] MEDS ORDERED: L-MESITRAN SOFT50 GM TOP (11:54)
[2023-09-24] MEDS ORDERED: ASPI81CH PO (11:55)
[2023-09-24] MEDS ORDERED: MIRALAX17 GM PO (11:55)
== END 2023-09-24 12:48 | DRG 604 ==
LOC: ER 12:34 → MEDS 12:35
PROVIDERS: Internal Medicine; Orthopaedic Surgery; Student in an Organized Health Care Education/Training Program; ADMIT Internal Medicine
PROC: 0J9N0ZZ Drainage of Right Lower Leg Subcutaneous Tissue and Fascia, Open Approach (ICD-10-PCS; principal; 2023-09-22 15:00)
DX: S80.11XA Contusion of right lower leg, initial encounter (principal); G93.41 Metabolic encephalopathy; J96.21 Acute and chronic respiratory failure with hypoxia; I50.33 Acute on chronic diastolic (congestive) heart failure; L03.115 Cellulitis of right lower limb; J98.11 Atelectasis; E66.2 Morbid (severe) obesity with alveolar hypoventilation; E87.20 Acidosis, unspecified; I48.20 Chronic atrial fibrillation, unspecified; E87.1 Hypo-osmolality and hyponatremia; E27.40 Unspecified adrenocortical insufficiency; N39.0 Urinary tract infection, site not specified; E87.3 Alkalosis; I96 Gangrene, not elsewhere classified; Z66 Do not resuscitate; W18.30XA Fall on same level, unspecified, initial encounter; M19.042 Primary osteoarthritis, left hand; R33.9 Retention of urine, unspecified; N18.30 Chronic kidney disease, stage 3 unspecified; D69.6 Thrombocytopenia, unspecified; E03.9 Hypothyroidism, unspecified; K21.9 Gastro-esophageal reflux disease without esophagitis; G89.29 Other chronic pain; M79.7 Fibromyalgia; R53.81 Other malaise; I35.0 Nonrheumatic aortic (valve) stenosis; E88.09 Other disorders of plasma-protein metabolism, not elsewhere classified; J45.909 Unspecified asthma, uncomplicated; E87.8 Other disorders of electrolyte and fluid balance, not elsewhere classified; Y92.019 Unspecified place in single-family (private) house as the place of occurrence of the external cause; Z79.01 Long term (current) use of anticoagulants; Z79.52 Long term (current) use of systemic steroids; Z93.3 Colostomy status; Z99.81 Dependence on supplemental oxygen; Z79.890 Hormone replacement therapy
CPT/HCPCS: 0241U; 36415; 70450; 71046; 72170; 73590; 73700; 80048; 80053; 80069; 80181; 81003; 82550; 82803; 83735; 83880; 84145; 84443; 84550; 85014; 85018; 85025; 85027; 85610; 87070; 87075; 87205; 90471; 90715; 93005; 93010; 93306; 93971; 94760; 94762; 97110; 97162; 97166; 97530; 97535; 99285-25; A9270; J0456; J1170; J1940; J2405; J2704; J2795; J3010; J7030; J7040; J7050; J7120; J7512

== ENCOUNTER 2023-11-09 13:07 | Inpatient (IN) | payer MEDICARE ==
[~2023-11-09] VITALS: Ht 172.7 cm; Wt 102.1 kg
[~2023-11-09 13:07] MED LIST changes: +1/2 NS 250ml250 ML PO; +ASPI81CH PO; +DODEX1000 MCG/3 IM; +Flecainide Acet50 MG PO; +IPRAT-ALBUT 0.5-3 ML INH; +L-MESITRAN SOFT50 GM TOP; +METOPROLOL TART25 MG PO; +OXYB5 PO; +Prednisone10 MG PO; +SULFAMETHOXAZO1 EAC1 PO
[2023-11-09] MEDS ORDERED: NS 1,000 ML IV SCH (14:00)
[2023-11-09 14:09] LABS: Source, Urine Clean Catch
[2023-11-09 14:26] LABS: Appearance, Urine Hazy (Clear); Bilirubin, Urine Neg (Neg); Blood, Urine Neg (Neg); Color, Urine Yellow (P-Yellow); Glucose Qualitative, Urine Neg (Neg); Ketones, Urine Neg (Neg); Leukocyte Esterase, Urine Neg (Neg); Nitrite, Urine Neg (Neg); Protein, Urine 1+ (Neg); Specific Gravity, Urine 1.025 (1.003-1.022); Urobilinogen, Urine NORM (Normal)
[2023-11-09 14:35] LABS: BASOPHILS ABSOLUTE AUTO 0.03 K/mm3 (0.00-0.23); BASOPHILS PERCENT AUTO 1 % (0-2); EOSINOPHILS ABSOLUTE AUTO 0.08 K/mm3 (0.00-0.68); EOSINOPHILS PERCENT AUTO 1 % (0-6); Hematocrit 21.9 % (33.0-51.0); Hemoglobin 6.2 g/dL (11.5-16.0); IMMATURE GRAN ABSOLUTE AUTO 0.02 K/mm3 (0.00-0.10); IMMATURE GRAN PERCENT AUTO 0 % (0-1); LYMPHOCYTES ABSOLUTE AUTO 1.78 K/mm3 (0.84-5.20); LYMPHOCYTES PERCENT AUTO 28 % (21-46); MONOCYTES ABSOLUTE AUTO 0.65 K/mm3 (0.16-1.47); MONOCYTES PERCENT AUTO 10 % (4-13); Mean Corpuscular HGB 28.6 pg (26.0-34.0); Mean Corpuscular HGB Conc 28.3 g/dL (31.5-36.5); Mean Corpuscular Volume 101 fL (80-100); NEUTROPHILS ABSOLUTE AUTO 3.73 K/mm3 (1.96-9.15); NEUTROPHILS PERCENT AUTO 59 % (41-73); Platelet Count 168 K/mm3 (150-400); RDW Coefficient Variation 14.6 % (11.7-14.2); RDW Standard Deviation 54.8 fL (35.1-46.3); Red Blood Cell Count 2.17 M/mm3 (3.80-5.20); White Blood Cell Count 6.29 K/mm3 (4.00-11.30)
[2023-11-09 14:45] LABS: Albumin, Blood 2.1 g/dL (3.4-5.0); Albumin/Globulin Ratio 0.7 (0.8-1.8); Bilirubin, Total 0.2 mg/dL (0.1-1.0); Bun/Creatinine Ratio 19.1 (12.0-20.0); Calcium, Blood 7.6 mg/dL (8.5-10.1); Creatinine, Blood 0.58 mg/dL (0.40-1.00); Globulin, Blood 3.2 g/dL (2.2-4.0); Magnesium, Blood 1.7 mg/dL (1.6-2.4); Potassium, Blood 3.8 mmol/L (3.5-5.5); Total Protein, Blood 5.3 g/dL (6.4-8.2)
[2023-11-09 14:49] LABS: Influenza A, PCR NEGATIVE (NEGATIVE); Influenza B, PCR NEGATIVE (NEGATIVE); Resp Syncytial Virus, PCR NEGATIVE (NEGATIVE); SARS-Cov-2 (COVID-19) PCR, MMC NEGATIVE (NEGATIVE)
[2023-11-09 14:59] LABS: Bacteria Few /hpf; Hyaline Casts 0-2 /lpf (0-2); Mucus Light (0-Heavy); Red Blood Cells, Urine 0-2 /hpf (0-2); Squamous Epithelial Cells Rare /hpf (Few); White Blood Cells, Urine 0-2 /hpf (0-5)
[2023-11-09] MEDS ORDERED: Acetaminophen 325 MG TABLET PO PRN (16:20)
[2023-11-09] MEDS ORDERED: NS 1,000 ML IV ONE (16:33)
[2023-11-09 17:36] LABS: Percent Saturation 7.4 % (15.0-50.0)
[2023-11-09 17:36] LABS: Percent Saturation 7.4 % (15.0-50.0)
--- NOTE | 2023-11-09 20:00 | NUR ---
PATIENT IS A NEW ADMIT ON DAY SHIFT JUST PRIOR TO SHIFT CHANGE. AXOX 2 AND BEDREST. ON 5L O2 NC AND 2L O2 BASELINE. IV BLOOD PRODUCT INFUSING FROM THE ED. DENIES CHEST PAIN AND N/V. COLOSTOMY PRESENT. WOUND TO RIGHT CALF WITH DAUGHTER REPORTING WOUND VAC RECENTLY TAKEN OFF AND DRESSING IN PLACE FROM HOME. PUREWICK PLACED AND TELE REPORTED PACED 70'S. PATIENT AND FAMILY ORIENTED TO ROOM AND CALL LIGHT SYSTEM. [facility].
[2023-11-09] MEDS ORDERED: CARV6.25 PO (20:18)
[2023-11-09 21:19] LABS: Hematocrit 35.1 % (33.0-51.0); Hemoglobin 10.2 g/dL (11.5-16.0)
[2023-11-09 21:23] LABS: Base Excess Venous 12.7 mmol/L; PCO2 Venous 50.2 mmHg (38-42); pH Blood Venous 7.47 (7.34-7.37)
[2023-11-09] MEDS ORDERED: Gabapentin 300 MG Cap PO SCH (21:35)
[2023-11-09] MEDS ORDERED: OxyCODONE HCL 5 MG TAB PO PRN (21:35)
[2023-11-09] MEDS ORDERED: Gabapentin 100 MG Cap PO SCH (21:46)
--- NOTE | 2023-11-09 23:38 | NUR ---
RT REPORTS PATIENT PLACED ON BIPAP 03/01 WITH 4L O2 BLEED IN. PATIENT STATING 96% ON CONTINUOUS PULSE OXIMETRY. DAUGHTER STILL PRESENT. PATIENT TOLERATING AT THIS TIME. WCTM.
[2023-11-10 02:53] VITALS: BP 127/67
--- NOTE | 2023-11-10 04:17 | NUR ---
SHIFT SUMMARY PATIENT HAD NO ACUTE CHANGES. AXOX 2-3 AND BEDREST. DENIES CHEST PAIN, SOB, AND N/V. VSS/AFEBRILE. ON 5L O2 NC AND RT SETUP BIPAP WITH 4L O2 BLEED IN STATING MOSTLY 95%. PUREWICK IN PLACE. PIV INTACT. REPORTED BACK/NECK PAIN AND OXYCODONE 10 MG GIVEN PER EMAR. COLOSTOMY INTACT. CONSENT TO PHOTOGRAPH WOUND SIGNED AND IN CHART. DAUGHTER REPORTS FOLLOW UP [facility] DR GARZA FOR WOUND ON SATURDAY. TELE MONITOR PACED 70'S. HgB 6.2 TO 10.2 AFTER ONE UNIT PRBC FROM ED. CALL LIGHT IN REACH. BED IN LOWEST POSITION AND BED ALARM ON. WILL CONTINUE TO MONITOR UNTIL DAY SHIFT NURSE ASSUMES CARE.
[2023-11-10] MEDS ORDERED: Pantoprazole Sodium 40 MG Injection IV SCH (06:00)
[2023-11-10 06:07] LABS: BASOPHILS ABSOLUTE AUTO 0.05 K/mm3 (0.00-0.23); BASOPHILS PERCENT AUTO 1 % (0-2); EOSINOPHILS ABSOLUTE AUTO 0.18 K/mm3 (0.00-0.68); EOSINOPHILS PERCENT AUTO 3 % (0-6); Hematocrit 34.6 % (33.0-51.0); Hemoglobin 10.1 g/dL (11.5-16.0); IMMATURE GRAN ABSOLUTE AUTO 0.01 K/mm3 (0.00-0.10); IMMATURE GRAN PERCENT AUTO 0 % (0-1); LYMPHOCYTES ABSOLUTE AUTO 2.65 K/mm3 (0.84-5.20); LYMPHOCYTES PERCENT AUTO 38 % (21-46); MONOCYTES ABSOLUTE AUTO 0.84 K/mm3 (0.16-1.47); MONOCYTES PERCENT AUTO 12 % (4-13); Mean Corpuscular HGB 28.5 pg (26.0-34.0); Mean Corpuscular HGB Conc 29.2 g/dL (31.5-36.5); Mean Corpuscular Volume 98 fL (80-100); Mean Platelet Volume 11.6 fL (9.1-12.4); NEUTROPHILS ABSOLUTE AUTO 3.27 K/mm3 (1.96-9.15); NEUTROPHILS PERCENT AUTO 47 % (41-73); Platelet Count 191 K/mm3 (150-400); RDW Coefficient Variation 14.8 % (11.7-14.2); RDW Standard Deviation 53.7 fL (35.1-46.3); Red Blood Cell Count 3.54 M/mm3 (3.80-5.20)
[2023-11-10 06:32] LABS: Bun/Creatinine Ratio 20.1 (12.0-20.0); Calcium, Blood 8.8 mg/dL (8.5-10.1); Creatinine, Blood 0.7 mg/dL (0.40-1.00); Potassium, Blood 4.7 mmol/L (3.5-5.5)
[2023-11-10 07:34] VITALS: BP 154/58
[2023-11-10] MEDS ORDERED: Gabapentin 100 MG Cap PO SCH (09:00)
--- NOTE | 2023-11-10 11:09 | NUR ---
DAUGHTER AT BEDSIDE, PATIENT MORE ALERT TODAY, EMPTIED COLOSTOMY, NO ACUTE CHANGES, CALL LIGHT WITH IN REACH
[2023-11-10 15:24] VITALS: BP 132/68
--- NOTE | 2023-11-10 16:54 | NUR ---
NO ACUTE CHANBGES, DAUGHTER HELPFUL WITH CARE, PATIENT SHOWERED, STOOL SAMPLE SENT PURWIK IN PLACE, PATIENT NEEDS ENCOURAGEMENT TO MOVE, MEDICATED WITH OXYCODONE 10 MG FOR NECK BACK PAIN. ICE TO NECK, NEW DRESSING TO RIGHT LOWER CALF. DR SHARMA TO PUT ORDERS IN, CALL LIGHT WITH IN REACH, WILL RELAY TO PM RN
[2023-11-10 19:16] VITALS: BP 151/58
[2023-11-10] MEDS ORDERED: Ipratropium/Albuterol SulF 2.5-0.5MG/3 ML Amp INH PRN (19:25)
[2023-11-10] MEDS ORDERED: Montelukast Sodium 10 MG Tab PO PRN (19:25)
[2023-11-10] MEDS ORDERED: Ondansetron 4 MG TAB PO PRN (19:30)
[2023-11-10] MEDS ORDERED: Calcium Carbonate 500 MG Tab Chew PO PRN (19:45)
[2023-11-10] MEDS ORDERED: NS 250 ML IV PRN (19:55)
[2023-11-10] MEDS ORDERED: Polyethylene Glycol 3350 17 gm PO SCH (20:00)
[2023-11-10] MEDS ORDERED: Sod Ferric Gluc Complx/Sucrose 125 MG in NS 100 ML IV SCH (20:00)
[2023-11-10] MEDS ORDERED: Carvedilol 6.25 MG Tab PO SCH (21:00)
[2023-11-10] MEDS ORDERED: Amitriptyline HCl 50 MG Tab PO SCH (21:00)
[2023-11-10] MEDS ORDERED: Flecainide Acetate 100 MG Tab PO SCH (21:00)
--- NOTE | 2023-11-11 04:23 | NUR ---
SHIFT SUMMARY PATIENT HAD NO ACUTE CHANGES. AXOX 3 AND BEDREST. ON 4L O2 NC AND USES BIPAP WITH 4L O2 BLEED IN PER RT STATING 95% ON CONTINUOUS PULSE OXIMETRY. REPORTED ACID REFLUX AND HOSPITALIST [employer]OCIATE ORDERED TUMS 1,000 MG PRN. PIV INTACT. IV IRON INFUSED. TELE MONITOR PACED 70'S. DENIES CHEST PAIN AND N/V. VSS/AFEBRILE. MIRALAX NEW ORDER GIVEN. DAUGHTERS PRESENT FIRST FEW HOURS OF SHIFT. CALL LIGHT IN REACH. BED IN LOWEST POSITION. WILL CONTINUE TO MONITOR UNTIL DAY SHIFT NURSE ASSUMES CARE.
[2023-11-11 04:29] VITALS: BP 150/69
[2023-11-11 04:51] LABS: Hematocrit 36.2 % (33.0-51.0); Mean Corpuscular HGB 28.9 pg (26.0-34.0); Mean Corpuscular HGB Conc 30.4 g/dL (31.5-36.5); Mean Corpuscular Volume 95 fL (80-100); Mean Platelet Volume 10.9 fL (9.1-12.4); Platelet Count 203 K/mm3 (150-400); RDW Coefficient Variation 14.7 % (11.7-14.2); RDW Standard Deviation 51.4 fL (35.1-46.3); Red Blood Cell Count 3.81 M/mm3 (3.80-5.20); White Blood Cell Count 7.79 K/mm3 (4.00-11.30)
[2023-11-11 05:13] LABS: Bun/Creatinine Ratio 19.9 (12.0-20.0); Calcium, Blood 8.6 mg/dL (8.5-10.1); Creatinine, Blood 0.55 mg/dL (0.40-1.00); Potassium, Blood 4.4 mmol/L (3.5-5.5)
[2023-11-11] MEDS ORDERED: Levothyroxine Sodium 0.15 MG Tab PO SCH (06:00)
[2023-11-11 07:26] VITALS: BP 144/52
[2023-11-11] MEDS ORDERED: Potassium Chloride 40 MEQ in NS 250 ML IV ONE (07:35)
[2023-11-11] MEDS ORDERED: Metoprolol Tartrate 25 MG Tab PO SCH (08:00)
[2023-11-11] MEDS ORDERED: Misc. Topical TOP SCH (09:00)
[2023-11-11] MEDS ORDERED: Miconazole Nitrate 2% 85 GM PWD TOP SCH (09:40)
[2023-11-11] MEDS ORDERED: Lactulose 20 GM/30 ML UDC PO SCH (12:00)
[2023-11-11] MEDS ORDERED: Torsemide 20 MG TAB PO SCH (12:00)
[2023-11-11 12:36] LABS: Stool Occult Blood Guaiac 1 Neg (Neg)
[2023-11-11 15:30] VITALS: BP 137/63
[2023-11-11] MEDS ORDERED: ALBU90OI INH (17:03)
--- NOTE | 2023-11-11 17:26 | NUR ---
SHIFT SUMMARY PT A&OX4, VSS, ON 3L O2 NC, TOLERATNG PO, VOIDING, AND PAIN MANAGED PER EMAR. PT WORKED W/ PHYSICAL THERAPY THIS SHIFT, SEE THERAPY NOTE. PT 2P MAX ASSIST W/ TRANSFERS AND AMB. NO OTHER ACUTE CHANGES. CALL LIGHT WITHIN REACH AND PT ABLE TO MAKE NEEDS KNOWN.
[2023-11-11 20:06] VITALS: BP 166/59
[2023-11-12 03:33] VITALS: BP 124/52
[2023-11-12 05:29] LABS: Albumin, Blood 2.2 g/dL (3.4-5.0); Anion Gap 6 mmol/L (3-11); Blood Urea Nitrogen 12 mg/dL (8-24); Bun/Creatinine Ratio 15.9 (12.0-20.0); CO2, Blood 40 mmol/L (21-32); Calcium, Blood 8.4 mg/dL (8.5-10.1); Chloride, Blood 100 mmol/L (98-108); Creatinine, Blood 0.76 mg/dL (0.40-1.00); Glomerular Filtration Rate 76 (60-); Glucose, Blood 95 mg/dL (70-99); Phosphorus, Blood 4.3 mg/dL (2.5-4.9); Sodium, Blood 142 mmol/L (136-145)
--- NOTE | 2023-11-12 06:38 | NUR ---
Shift Summary Pt on 4-5L NC O2 to [facility] SAT>92%. She wore her CPAP while sleeping for half the night but the mask was hurting the skin on the bridge of her nose so we switched back to NC. Pt was very somnolent and lethargic t/o the night, difficult to wake even during patient care and falling back to sleep quickly. Dressing on RLE was changed per pt request. Pt has purewick which seems to have a suction issue is draining some but not all urine. Colostomy bag emptied as needed. One desaturation event overnight, pt was down to 82% and woken up and encouraged to breathe deeply through her nose with the NC.
[2023-11-12 07:35] VITALS: BP 173/66
[2023-11-12 11:36] VITALS: BP 101/47
[2023-11-12 15:10] VITALS: BP 143/63
--- NOTE | 2023-11-12 17:33 | NUR ---
SHIFT SUMMARY PT CONT TO REQUIRE 3L O2 NC FROM BASE OF 2L. PT WORKED W/ PHYSICAL AND OCCUPATION THERAPY, SEE THERAPY NOTES. PAIN MANAGED PER EMAR. PT CONT TO BE A 2P MAX ASSIST AND TOLERATE THERAPY POORLY. NO OTHER ACUTE CHANGES THIS SHIFT. CALL LIGHT WITHIN REACH AND PT ABLE TO MAKE NEEDS KNOWN.
[2023-11-12] MEDS ORDERED: Bumetanide 0.25 MG/ML 4ML ViaL IV SCH (18:00)
[2023-11-12 18:26] VITALS: BP 130/60
[2023-11-12 20:26] VITALS: BP 113/48
[2023-11-13 02:59] VITALS: BP 127/51
[2023-11-13] MEDS ORDERED: Pantoprazole Sodium 40 MG Tab PO SCH (06:00)
[2023-11-13 06:18] LABS: Albumin, Blood 2.3 g/dL (3.4-5.0); Anion Gap 8 mmol/L (3-11); Blood Urea Nitrogen 12 mg/dL (8-24); Bun/Creatinine Ratio 16.8 (12.0-20.0); CO2, Blood 42 mmol/L (21-32); Calcium, Blood 8.3 mg/dL (8.5-10.1); Chloride, Blood 95 mmol/L (98-108); Creatinine, Blood 0.72 mg/dL (0.40-1.00); Glomerular Filtration Rate 81 (60-); Glucose, Blood 93 mg/dL (70-99); Magnesium, Blood 1.6 mg/dL (1.6-2.4); Phosphorus, Blood 4.4 mg/dL (2.5-4.9); Potassium, Blood 3.5 mmol/L (3.5-5.5); Sodium, Blood 141 mmol/L (136-145)
--- NOTE | 2023-11-13 06:27 | NUR ---
Shift Summary Pt wore CPAP t/o the night with 4L bleed in. She had some brief desaturations down to 85% partly due to the CPAP mask being too small and her mouth would go past the seal. No c/o of any pain or discomfort. Pt lethargic and somnolent t/o the shift, sleeping soundly and quickly falling back to sleep after or during patient care. She did have some heartburn at the start of the shift and was given TUMS per emar. No acute changes.
[2023-11-13 07:41] VITALS: BP 147/69
[2023-11-13 15:44] VITALS: BP 127/52
--- NOTE | 2023-11-13 17:32 | NUR ---
SHIFT SUMMARY NO ACUTE CHANGES. CALL LIGHT WITHIN REACH AND PT ABLE TO MAKE NEEDS KNOWN.
[2023-11-13 19:49] VITALS: BP 120/53
[2023-11-14 04:29] VITALS: BP 126/46
--- NOTE | 2023-11-14 06:21 | NUR ---
AT START OF SHIFT PT WAS TRANSFERRED TO BED WITH GREAT DIFFICULTY, 2-3 STAFF MAX ASSIST GAITBELT & WALKER, PT HAD DIFFICULTY WITH SIMPLY STANDING AND TURNING. VSS. CPAP WITH 5L O2 BLEED IN FOR PT TO MAINTAIN O2 SATURATION >90. PT SLEPT MOST OF SHIFT. MIDLINE NOT DRAWING.
[2023-11-14 07:43] VITALS: BP 137/50
[2023-11-14 11:57] LABS: Albumin, Blood 2.3 g/dL (3.4-5.0); Anion Gap 7 mmol/L (3-11); Blood Urea Nitrogen 15 mg/dL (8-24); Bun/Creatinine Ratio 17.6 (12.0-20.0); CO2, Blood 42 mmol/L (21-32); Calcium, Blood 8.9 mg/dL (8.5-10.1); Chloride, Blood 91 mmol/L (98-108); Creatinine, Blood 0.85 mg/dL (0.40-1.00); Glomerular Filtration Rate 67 (60-); Glucose, Blood 154 mg/dL (70-99); Phosphorus, Blood 3.6 mg/dL (2.5-4.9); Potassium, Blood 3.6 mmol/L (3.5-5.5); Sodium, Blood 136 mmol/L (136-145)
[2023-11-14 14:47] VITALS: BP 116/52
--- NOTE | 2023-11-14 16:37 | NUR ---
NOTIFIED DR. SHARMA THAT PATIENT HASN'T HAD MUCH URINARY OUTPUT SINCE THIS MORNING AND POST BUMEX ADMINISTERATION. PATIENT BLADDER SCANNED AND SITTING AT 373. PATIENT DOES NOT EXPRESS THAT NEED TO VOID OR THAT HER BLADDER FEELS FULL. PATIENT ATTEMPTED TO VOID AND POST VOID SCAN WAS STILL [address] SHARMA ADVISED TO GO A ONE TIME DOSE NOW OF BUMEX 2 MG IV AND IF PATIENT DOES NOT VOID IN [address] A BETTS.
[2023-11-14] MEDS ORDERED: Bumetanide 0.25 MG/ML 10ML Vial IV ONE (16:45)
--- NOTE | 2023-11-14 17:24 | NUR ---
SHIFT SUMMARY: PATIENT IS A&OX3-4. SHE CAN BE FORGETFUL/CONFUSED. SHE IS REALLY WEAK 2-3 PERSON ASSIST WITH TRANSFERRING/CARE. PATIENT DOES NOT TOLERATE ACTIVITY WELL MOSTLY DUE TO PAIN AND WEAKNESS. HER DAUGHTER IS AT BEDSIDE AND IS HELPFUL WHEN IT COMES TO PATIENT'S CARE AND HER NEEDS. SHE IS CURRENTLY IN BED, CALL LIGHT WITHIN REACH, WAITING FOR IV BUMEX TO TAKE AFFECT TO SEE IF BETTS PLACEMENT IS NEEDED, NO SIGNS OR SYMPTOMS OF DISTRESS, PLAN OF CARE ONGOING.
--- NOTE | 2023-11-14 17:50 | NUR ---
ADDITIONAL DOSE OF BUMEX EFFECTIVE PATIENT VOIDED 650
--- NOTE | 2023-11-14 18:05 | NUR ---
DR. SHARMA ADVISED FOR BUMEX TO CHANGE FROM DAILY TO BID. ORDER UPDATED.
[2023-11-14 19:54] VITALS: BP 128/55
[2023-11-15 03:57] VITALS: BP 114/51
--- NOTE | 2023-11-15 06:39 | NUR ---
NO ACUTE CHANGES. PT DIFFICULT TO WAKE WHEN ASLEEP, UNABLE TO SAFELY GIVE 0600 MEDS, WILL TRY AGAIN WHEN PATIENT WAKES.
[2023-11-15 08:10] VITALS: BP 156/54
[2023-11-15] MEDS ORDERED: Bumetanide 0.25 MG/ML 10ML Vial IV SCH (09:00)
[2023-11-15 11:04] LABS: Anion Gap Unable to Calculate mmol/L (3-11); Blood Urea Nitrogen 16 mg/dL (8-24); Bun/Creatinine Ratio 20.9 (12.0-20.0); Chloride, Blood 90 mmol/L (98-108); Creatinine, Blood 0.76 mg/dL (0.40-1.00); Glomerular Filtration Rate 76 (60-); Glucose, Blood 142 mg/dL (70-99); Potassium, Blood 3.2 mmol/L (3.5-5.5); Sodium, Blood 137 mmol/L (136-145)
[2023-11-15 11:05] LABS: CO2, Blood >45 mmol/L (21-32)
--- NOTE | 2023-11-15 11:24 | NUR ---
CALL MADE TO DR. SHARMA REGUARDING CRITICAL RESULTS ON CO2 AND LOW POTASSIUM. NO ANSWER LMOM.
[2023-11-15] MEDS ORDERED: Potassium Chloride 20 MEQ/15 ML UDC PO STA (12:37)
[2023-11-15] MEDS ORDERED: GABA100 PO ×2 (15:11→15:36)
[2023-11-15] MEDS ORDERED: LACT10SY PO (15:11)
[2023-11-15] MEDS ORDERED: MICONAZOLE NIT130 GM TOP (15:12)
[2023-11-15] MEDS ORDERED: LIQUACEL PO (15:13)
[2023-11-15] MEDS ORDERED: OXYB5 PO (15:39)
--- NOTE | 2023-11-15 16:46 | NUR ---
SHIFT SUMMARY: PT A&OX4-2 PERSON ASSIST. PATIENT IMPROVED TODAY; MORE ALERT/ORIENTED, AND EDEMA IN LOWER EXTREMITIES IMPROVED. PATIENT SHOWED MORE MOBILITY TODAY WELL. PATIENT SET UP FOR DISCHARGE TO [facility] IN [place], BUT DISCHARGE WAS DELAYED DUE TO NEED FOR PORTABLE OXYGEN AND DUE TO THE TIME OF RECEIVING PORTAL OXYGEN INTERFERRING WITH TIMING OF PATIENT'S ARRIVAL AT [facility]. PATIENT'S POWER GLIDE WAS REMOVED AND DISCHARGE COMPLETE. DR. SHARMA AWARE THAT PATIENT DID NOT MAKE DISCHARGE TODAY AND NOT HAVING PERIPHERAL ACCESS FOR IRON INFUSION. PATIENT WILL MORE THAN LIKELY DISCHARGE TOMORROW 11/16/23 ONCE PORTAL OXYGEN IS OBTAINED, THEN FAMILY WILL TRANSPORT PATIENT TO [facility] IF THEY ARE ACCEPTING AT THAT TIME. PLAN OF CARE ONGOING.
[2023-11-15 16:47] VITALS: BP 146/62
[2023-11-15 19:15] VITALS: BP 138/55
[2023-11-16 04:19] VITALS: BP 126/53
--- NOTE | 2023-11-16 05:12 | NUR ---
SHIFT SUMMARY PATIENT TOOK HS MEDCATIONS. ALERT AND ORIENTATED TIMES 4. PATIENT WOKE UP AT ABOUT 0430 COMPLAINING OF SEVERE NECK PAIN. PATIENT WAS RE-ADJUSTED IN BED AND GIVEN PAIN MEDICATION. PATIENT DID NOT WANT TO CONTINUE WEARING BI-PAP MASK. OXYGEN DIPPED TO HIGH 70'3 BUT QUICKLY LEVELED OUT IN THE 90'2, RT WAS CALLED AND MADE ADJUSTMENTS WITH THE MASKWHEN BI-PAP MASK WAS PUT BACK ON. PATIENT APPEARED TO SLEEP THROUGH THE NIGHT WITH OUT ISSUES. PATIENT ABLE TO MAKE NEEDS KNOWN. NO ACUTE EPISODES THIS SHIFT. BED IN LOW POSITION, BED RAILS TIMES 2, CALL LIGHT WITHIN REACH.
[2023-11-16 07:52] VITALS: BP 118/58
[2023-11-16 11:06] VITALS: BP 107/59
[2023-11-16 12:30] LABS: PCO2 Venous 75.7 mmHg (38-42); pH Blood Venous 7.41 (7.34-7.37)
[2023-11-16 12:31] LABS: Base Excess Venous 23.6 mmol/L; Bicarbonate Venous 43.7 mmol/L (24.0-30.0)
--- NOTE | 2023-11-16 12:39 | NUR ---
FAMILY ARRIVED AT 1030 TO BE TRANSPORTATION FOR THE PATIENT TO GO TO [facility] IN [place]. DURING GETTING PATIENT UP OUT OF THE BED SHE BECAME SWEATY (DRIPPING SWEAT) AND SHE WAS WEAK; UNABLE TO SUPPORT HER OWN BODY AND HAS POOR ARM/HAND COORDINATATION/STRENGTH AND DROPPPING OBJECTS. VITALS AND BLOOD SUGAR OBTAINED; STABLE. DR. SHARMA WAS NOTIFIED. PATIENT WAS TRANSFERRED FROM THE BED TO THE BEDSIDE RECLINER VIA SIT TO STAND LIFT. PATIENT TOLERATED WELL. PATIENT STILL ABLE TO ANSWER ORIENTATION QUESTIONS APPROPRIATE AND ANSWER QUESTIONS; WITH SPOUTS OF STARING BLANKLY AND NOT ANSWER QUESTIONS, BUT PATIENT VOICED THAT SHE WAS BEING SPOKEN TOO AND WOULD REPEAT WHAT WAS SAID, BUT CHOSE NOT TO ANSWER DUE TO STATING THAT SHE "DID NOT KNOW" PATIENT EVENTUALLY ABLE TO ANSWER ALL QUESTIONS. PATIENT APPEARING BETTER, NO LONGER SWEATING AND VOICING THAT SHE FEELS BETTER. PATIENT EXPRESSED TO DR. SHARMA WHEN SHE CAME BACK AND EVALUATED THE PATIENT THAT HER ONLY CONCERNS THAT SHE WAS IN PAIN, BUT IT WAS NO DIFFERENT AND THAT SHE FELT TERRIBLE, BUT COULDN'T ELABORATE; BESIDES EXPRESSING PAIN. A VBG WAS ORDERED AND PREFORMED SHOWING INSIGNIFICANT RESULTS. CONVERSTATION WAS HAD WITH PATIENT'S DAUGHTER DIANN ABOUT TAKING A MORE PALLATIVE CARE APPROACH WITH THE PATIENT DUE TO THE PATIENT AND DIANN BOTH VOICING THAT THEY WANT HER HOME. PATIENT'S DAUGHTER RECEPTIVE TO THIS IDEA AND SEEMS TO BE IN AGREEANCE AND WOULD LIKE TO HAVE A CONVERSATION WITH HER SISTER; PATIENT'S OTHER DAUGHTER BOZENA.
[2023-11-16 15:20] VITALS: BP 136/63
--- NOTE | 2023-11-16 15:47 | NUR ---
Received a request from bedside RN for Palliative consult for this patient and family. The patient was scheduled to leave for rehab today, but was unable due to a change in condition. She suddenly became unable to stand, and was suddenly requiring 2 person assist. She was also suddenly unable to hold anything in her hand; dropped a cup and other items. She remained awake through the incident, but her head was hanging forward, and she appeared unable to move it. She c/o pain "all over" and generally not feeling well. Rehab was cancelled for today, and according to the bedside RN, the pt's daughter Mary Ellen stated she isn't sure rehab is a good idea, and is now thinking of simply taking the patient home, and is interested in discussing hospice as a possible option. Mary Ellen states her sister Patricia is POA for patient and is home sick today. We are planning on meeting tomorrow along with CM, pt's daughters and the patient about goals of care.
[2023-11-16] MEDS ORDERED: AcetaZOLAMIDE 250 MG Tab PO SCH (18:00)
--- NOTE | 2023-11-16 18:27 | NUR ---
SHIFT SUMMARY: PT IS A&OX4; BUT DISPLAYS LETHARGY, SLOW TO RESPOND TO QUESTIONS, PERIODS OF CONFUSION/FORGETFULNESS AND MAKES REMARKS THAT DO NOT MAKE SINCE. WAS A HEAVY 2 PERSON ASSIST, NOW A LIFT. PATIENT WAS ORIGINALLY DISCHARGE 11/15/23, BUT WASN'T DUE TO DELAY IN PORTAL OXYGEN BEING DELIVERED. SECOND ATTEMPT FOR PATIENT TO BE DISCHARGE TO [facility] IN [place] AT 1000 TODAY, BUT PATIENT WAS UNABLE TO STAND/SUPPORT HER OWN BODY WEIGHT AND APPEARING NOT WELL (PLEASE SEE NURSES NOTE OF THIS EVENT) PATIENT SETTLED BACK INTO BED, PALLATIVE DID COME AND SPEAK WITH THE PATIENT'S DAUGHTER DIANN, ALONG WITH DR. SPENCER COMING AND CONSULTING. PATIENT APPEARING BETTER THIS AFTERNOON, BUT STILL WEAK, HAVING LACK OF GROSS MOTOR WITH HER HANDS/ARMS; CONTINUES TO PERIODICALLY DROP THINGS. PATIENT CONTINUES TO C/O PAIN ALMOST ENTIRELY 11/01 AT ALL TIMES ALL OVER, BUT WILL DOSE OFF/BECOME GROGGY. PATIENT DOES NEED BIPAP WHEN SHE FALLS ASLEEP, SHE DOES NOT MAINTAIN APPROPRIATE OXYGEN SATURATION WITH 3 L NASAL CANNULA OXYGEN ALONE WHEN SHE FALLS ASLEEP. BIPAP WITH 5 L BLEED IN REQUIRING TO MAINTAIN AN O2 LEVEL GREATER THAN 90% WHILE SLEEPING. PATIENT IS IN BED, CALL LIGHT WITHIN REACH, DAUGHTER DIANN AT BEDSIDE, NO SIGNS OR SYMPTOMS OF DISTRESS, PLAN OF CARE ONGOING. PALLATIVE APPROACH HOME ON HOSPICE VERSUS MEDICAL TREATMENT/REHAB?
[2023-11-16 20:44] VITALS: BP 112/86
[2023-11-17 04:40] VITALS: BP 140/110
--- NOTE | 2023-11-17 05:31 | NUR ---
SHIFT SUMMARY PATIENT TOOK HS MEDCATIONS. ALERT AND ORIENTATED TIMES 2-3. PATIENT WOKE UP AT PATIENT AND WAS RE-ADJUSTED IN BED. PATIENT DID NOT WANT TO CONTINUE WEARING BI-PAP MASK. RT CAME TO ROOM TO FOLLOW UP. PATIENT KEPT TRYING TO TAKE MASK OFF, WHILE SLEEPIG. PUT O2 NASAL CANULA BACK ON AND ABLE TO KEEP O2 LEVELS IN THE 90'S. PATIENT APPEARED TO SLEEP THROUGH THE NIGHT WITH OUT ISSUES. PATIENT ABLE TO MAKE NEEDS KNOWN. NO ACUTE EPISODES THIS SHIFT. BED IN LOW POSITION, BED RAILS TIMES 2, CALL LIGHT WITHIN REACH.
[2023-11-17 07:48] VITALS: BP 178/66
--- NOTE | 2023-11-17 15:59 | NUR ---
Met with patient and daughters Patricia and Mary Ellen at bedside today twice. The patient has made up her mind, states she wants to go home, and doesn't want to go to rehab. Family is agreeable to taking patient home with hospice, and they have chosen [facility] hospice. CM will send the referral.
[2023-11-17 16:05] VITALS: BP 102/48
--- NOTE | 2023-11-17 18:35 | NUR ---
DAY SHIFT SUMMARY: NO ACUTE EVENTS TO REPORT THIS SHIFT. PT A&O X2-3; CALM AND COOPERATIVE WITH CARE. MEDICATED FOR PAIN PER EMAR. PT HAD DIFFICULTY WEARING BIPAP OVERNIGHT; TRANSITIONED TO O2 VIA NASAL CANNULA; SATS REMAIN IN 90s WITH PATIENT ON BEDREST. ORDERS FOR SLEEP OXIMETRY THIS HS; ABG IN AM. PALLIATIVE CARE CONSULT THIS SHIFT; PT AND FAMILY AGREEABLE TO D/C HOME WITH HOSPICE; CM TO COORDINATE WITH [facility]. BED LOW & LOCKED; CALL LIGHT WITHIN REACH. WCTM.
[2023-11-17 20:43] VITALS: BP 124/58
[2023-11-18 04:46] VITALS: BP 123/61
[2023-11-18 05:06] LABS: PCO2 Arterial 68.6 mmHg (35-45); PO2 Arterial 96.5 mmHg (80-100); pH Blood Arterial 7.41 (7.35-7.45)
[2023-11-18 06:10] LABS: Hematocrit 33.7 % (33.0-51.0); Mean Corpuscular HGB 28.2 pg (26.0-34.0); Mean Corpuscular HGB Conc 29.7 g/dL (31.5-36.5); Mean Corpuscular Volume 95 fL (80-100); Mean Platelet Volume 10.8 fL (9.1-12.4); Platelet Count 240 K/mm3 (150-400); RDW Coefficient Variation 14.8 % (11.7-14.2); RDW Standard Deviation 51.8 fL (35.1-46.3); Red Blood Cell Count 3.55 M/mm3 (3.80-5.20); White Blood Cell Count 7.46 K/mm3 (4.00-11.30)
[2023-11-18 06:27] LABS: Albumin, Blood 2.3 g/dL (3.4-5.0); Anion Gap 9 mmol/L (3-11); Blood Urea Nitrogen 34 mg/dL (8-24); CO2, Blood 40 mmol/L (21-32); Calcium, Blood 9.3 mg/dL (8.5-10.1); Chloride, Blood 92 mmol/L (98-108); Creatinine, Blood 0.83 mg/dL (0.40-1.00); Glomerular Filtration Rate 69 (60-); Glucose, Blood 102 mg/dL (70-99); Phosphorus, Blood 4.2 mg/dL (2.5-4.9); Potassium, Blood 3.6 mmol/L (3.5-5.5); Sodium, Blood 137 mmol/L (136-145)
[2023-11-18 07:53] VITALS: BP 125/90
--- NOTE | 2023-11-18 14:33 | NUR ---
SHIFT SUMMARY PT RESTING QUIETLY WITH EYES CLOSED AT START OF SHIFT. PT IS DIFFICULT TO WAKE WHEN SLEEPING. PER REPORT, PT SLEEPS ALOT. PT LATER WOKE FOR CARE AND FAMILY TO RM. PT AWAKE FOR A LITTLE WHILE WHEN FAMILY IN RM AND THEN GOING BACK TO SLEEP. REPOSITIONED THRU OUT THE DAY. OSTOMY BAG CHANGED D/T LEAKING. TELEVISION INSPECTORSITE SUPERVISING TECHNICAL OPERATOR PT TO D/C HOME ON HOSPICE TOMORROW. HOSPICE TO PROVIDE A RE-EVAL FOR C-PAP IF NEEDED, AFTER D/C HOME. MEDICATED X1 TO PRESENT FOR C/O PAIN. PT IS MORBIDLY OBESE; STRICT I&O'S FOR HX OF CHF. EATING AND DRINKING WELL. CALL LT IN REACH.
[2023-11-18 16:20] VITALS: BP 112/63
--- NOTE | 2023-11-18 17:04 | NUR ---
DISCUSSED CASE IN MULTIDICIPLINARY TEAM MEETING. PRINTED POLST AND PUT IN PATIENTS CHART FOR TRANSPORT.
[2023-11-18 20:41] VITALS: BP 124/57
[2023-11-19 03:40] VITALS: BP 153/60
--- NOTE | 2023-11-19 06:37 | NUR ---
Shift Summary 1500 mL/day fluid restriction maintained t/o the shift. Her Ostomy bag did open once somehow and she was cleaned and changed. This morning when I tried to administer medications at 0500 she was very somnolent and I could not fully wake her up, she would answer yes or no and then fall back to sleep. 30 minutes later she was able to wake up and take her 0600 meds. O2 monitoring and BiPAP d/c yesterday. The plan is for her to go home with home hospice today. No acute changes.
[2023-11-19 07:53] VITALS: BP 162/62
--- NOTE | 2023-11-19 12:31 | NUR ---
PT RESTING QUIETLY AT START OF SHIFT. DIFFICULT TO WAKE FIRST THING IN AM, BUT LATER IS AWAKE AND ALERT. PT ABLE TO D/C HOME ON HOSPICE TODAY. ARRANAGEMENTS MADE BY [employer]. OXYGEN DELIVERED TO PRIOR TO TRANSPORT. BELONGINGS GATHERED AND SENT WITH PT. SLIDE TX TO MIKE AT D/C. FAMILY NOTIFIED BY BATCH FREEZER.
== END 2023-11-19 11:05 | disposition hospice, home (50) | DRG 811 ==
LOC: ER 13:07 → MEDS 17:29 → ENPENDDIS 11-16 14:42 → MEDS 11-19 11:05
PROVIDERS: Internal Medicine; Student in an Organized Health Care Education/Training Program; ADMIT Family Medicine
PROC: 30233N1 Transfusion of Nonautologous Red Blood Cells into Peripheral Vein, Percutaneous Approach (ICD-10-PCS; principal; 2023-11-09)
PROC: 5A09357 Assistance with Respiratory Ventilation, Less than 24 Consecutive Hours, Continuous Positive Airway Pressure (ICD-10-PCS; 2023-11-09)
DX: D50.9 Iron deficiency anemia, unspecified (principal); G92.8 Other toxic encephalopathy; I50.33 Acute on chronic diastolic (congestive) heart failure; J96.21 Acute and chronic respiratory failure with hypoxia; J96.22 Acute and chronic respiratory failure with hypercapnia; I24.89 Other forms of acute ischemic heart disease; E66.2 Morbid (severe) obesity with alveolar hypoventilation; Z66 Do not resuscitate; I48.0 Paroxysmal atrial fibrillation; E03.9 Hypothyroidism, unspecified; G89.29 Other chronic pain; M54.50 Low back pain, unspecified; N18.30 Chronic kidney disease, stage 3 unspecified; I95.9 Hypotension, unspecified; E87.8 Other disorders of electrolyte and fluid balance, not elsewhere classified; R73.9 Hyperglycemia, unspecified; I35.0 Nonrheumatic aortic (valve) stenosis; K21.9 Gastro-esophageal reflux disease without esophagitis; Z93.3 Colostomy status; Z99.81 Dependence on supplemental oxygen; Z88.0 Allergy status to penicillin; Z88.5 Allergy status to narcotic agent; Z91.040 Latex allergy status; Z91.041 Radiographic dye allergy status; Z88.8 Allergy status to other drugs, medicaments and biological substances; Z79.890 Hormone replacement therapy; Z79.01 Long term (current) use of anticoagulants; Z79.82 Long term (current) use of aspirin; Z79.52 Long term (current) use of systemic steroids; Z87.891 Personal history of nicotine dependence; Z95.0 Presence of cardiac pacemaker; Z68.33 Body mass index [BMI] 33.0-33.9, adult
CPT/HCPCS: 0241U; 36415; 36600; 71045; 80048; 80053; 80069; 81001; 82140; 82272; 82607; 82728; 82746; 82803; 82947; 83540; 83550; 83735; 83880; 84443; 84484; 85014; 85018; 85025; 85027; 86850; 86900; 86901; 86923; 93005; 93010; 94660; 94762; 96360; 97110; 97162; 97166; 97530; 97530-CQ; 97535; 99285-25; A9270; C1751; J2470; J2916; J3480; J7030; J7050; P9016